=== PATIENT | female | born 1950 | race Caucasian/White ===

== ENCOUNTER 2017-04-02 19:58 | Emergency (ER) | payer OTHER ==
[~2017-04-02] VITALS: Ht 167.6 cm; Wt 52.0 kg
[~2017-04-02 19:58] MED LIST: ALBU.5I NEB; ENOX40P SQ; Free Water PEG; HYDR1SYP PEG; IPRASOL INH; KLYTECL PEG; LACT PO; LEVS0.123 PO; Lactulose Liq PO; OXYGENTANK NAS.CANULA; PERC5TAB12 PO; PREV30TA3 NG; SENN1TAB27 PEG; VORI200T6 PO; WALKER WHEELS/F1 MIS; XANA2TAB2 PO
[2017-04-02 20:00] VITALS: BP 122/85; PULSE 107; RESP 20; TEMP 98.5; O2SAT 97
[2017-04-02 22:04] LABS: BASOPHIL # 0.1 TH/MM3 (0-0.2); BASOPHIL % 0.9 % (0.0-2.0); EOSINOPHIL # 0.4 TH/MM3 (0-0.4); EOSINOPHIL % 5.4 % (0.0-4.0); HEMATOCRIT 27.1 % (35.0-46.0); HEMOGLOBIN 9.5 GM/DL (11.6-15.3); LYMPH % 9.3 % (9.0-44.0); LYMPHOCYTE # 0.6 TH/MM3 (1.0-4.8); MEAN CELL VOLUME 90.2 FL (80.0-100.0); MEAN CORPUSCULAR HEMOGLOBIN 31.7 PG (27.0-34.0); MEAN CORPUSCULAR HGB CONC 35.1 % (32.0-36.0); MONO % 9.1 % (0.0-8.0); MONOCYTE # 0.6 TH/MM3 (0-0.9); NEUT % 75.3 % (16.0-70.0); PLATELET COUNT 335 TH/MM3 (150-450); RED BLOOD COUNT 3.01 MIL/MM3 (4.00-5.30); RED CELL DISTRIBUTION WIDTH 13.5 % (11.6-17.2); WHITE BLOOD COUNT 6.6 TH/MM3 (4.0-11.0)
[2017-04-02 22:23] LABS: ALBUMIN 2.6 GM/DL (3.4-5.0); ALT (GPT) 15 U/L (10-53); AST (GOT) 10 U/L (15-37); BLOOD UREA NITROGEN 15 MG/DL (7-18); CALCIUM 8.9 MG/DL (8.5-10.1); CHLORIDE 104 MEQ/L (98-107); CREATININE 0.54 MG/DL (0.50-1.00); GLOMERULAR FILTRATION RATE 113 ML/MIN (>89); GLUCOSE,RANDOM 93 MG/DL (74-106); SODIUM (NA) 139 MEQ/L (136-145)
[2017-04-02 22:26] LABS: ALKALINE PHOSPHATASE 71 U/L (45-117); TOTAL BILIRUBIN ADULT 0.3 MG/DL (0.2-1.0); TOTAL PROTEIN 6.3 GM/DL (6.4-8.2)
[2017-04-03 00:20] VITALS: O2SAT 97
[2017-04-03] MEDS ORDERED: IOHEXOL 350 MG/ML 10 ML VIAL (for RAD DIAG) IVCONTRAST ONE (00:35)
--- NOTE | 2017-04-03 01:04 | RADRPT ---
EXAM DATE/TIME: 04/03/2017 00:15 [facility] COMPARISON: CT SOFT TISSUE NECK W/O CONTRAST, October 16, 2016, 11:16. INDICATIONS : Increased swelling in throat. Patient has a tracheotomy. IV CONTRAST: 66 cc Omnipaque 350 (iohexol) IV RADIATION DOSE: 13.09 CTDIvol (mGy) MEDICAL HISTORY : Chronic obstructive pulmonary disease. laryngeal carcinoma, asthma SURGICAL HISTORY : tracheotomy ENCOUNTER: Initial ACUITY: 3 days PAIN SCALE: 4/10 LOCATION: neck TECHNIQUE: Volumetric scanning of the neck was performed. Using automated exposure control and adjustment of th e mA and/or kV according to patient size, radiation dose was kept as low as reasonably achievable to obtain optimal diagnostic quality images. DICOM format image data is available electronically for r eview and comparison. FINDINGS: NASOPHARYNX: The nasopharyngeal airway has a normal configuration. No mucosal thickening or mass is seen. OROPHARYNX: The intrinsic muscles of the tongue are symmetric. The tonsillar pillars are intact. The prevertebr al soft tissues are not thickened. LARYNX: More prominent soft tissue mass previously centered in the left piriform recess which now obliterates the aryepiglottic folds and vocal cords. Overall, this mass measures approximately 3.1 x 2.1 cm. A c ollection of air and fluid slightly more cephalad likely reflects secretions. No definite drainable f luid collections are noted. SALIVARY GLANDS: The parotid and submandibular glands are intact. LYMPH NODES: No significant lymphadenopathy is demonstrated. THYROID: Redemonstration of bilateral thyroid nodules measuring 1.4 cm in the right lobe and 7 mm and the left lobe. BONES: Unremarkable. 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 CONCLUSION: 1. More prominent laryngeal soft tissue mass previously centered in the left piriform sinus which now essentially obliterates the larynx. There are some secretions noted more cephalad but no definite dr ainable fluid collections. 2. No significant cervical adenopathy. 3. Occlusion of the left internal carotid artery. 4. Bilateral thyroid nodules. 5. Tracheostomy in place. 6. Moderate centrilobular emphysema in the visualized lung apices with biapical scarring. Denzel Bartholomew MD on April 03, 2017 at 0:48 Board Certified Radiologist. This report was verified electronically.
[2017-04-03 01:06] VITALS: BP 168/93; PULSE 82; TEMP 98.6; O2SAT 98
--- NOTE | 2017-04-03 01:41 | PD ---
HPI . ENT complaint Chief Complaint: ENT Complaint Time Seen by Provider: 20:28 Travel History International Travel<30 days: No Contact w/Intl Traveler<30days: No Traveled to known affect area: No History of Present Illness HPI 66-year-old female with laryngeal cancer status post chemotherapy treatments last in January as per family and patient, status post multiple radiation treatments (total #23 as per family and patient, last end of February), having tracheostomy present, complains of increased soft tissue swelling in the anterior portion of her neck over the past day and a half since getting a diagnostic fiberoptic laryngoscopy via nasal approach. Patient states there is some element of discomfort during the exam, patient was worried if there is any damage or infection incurred by the procedure. Patient has no difficulty breathing, has a patent tracheotomy, and is able to phonate when covering the tracheotomy. Denies fever chills sweats denies any stridor. Patient denies chest pain or any change in cough or production. 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) Chemotherapy: Yes (hx of chemo x 1 month) COPD: Yes Diminished Hearing: No Hypertension: Yes Respiratory: Yes ?: Not Menopausal: Yes : 5 Para: 4 : 1 Past Surgical History Abdominal Surgery: Yes (PEG) Hysterectomy: No Tonsillectomy: Yes Other Surgery: Yes (Tracheotomy) Social History Alcohol Use: No Tobacco Use: No Substance Use: No Allergies-Medications (Allergen,Severity, Reaction): Coded Allergies: penicillin G (Unverified Allergy, Severe, HIVES, 03/23/17) cephalexin (Unverified Allergy, Intermediate, Rash, 03/23/17) Reported Meds & Prescriptions Reported Meds & Active Scripts Active Hydroxyzine HCl 10 Mg/5 Ml Solution 10 Mg PEG Q6H PRN FOR ITCHING OR ANXIETY Lovenox Inj (Enoxaparin Sodium) 40 Mg/0.4 Ml Syr 40 Mg SQ Q24H Senna Lax (Sennosides) 8.6 Mg Tab 17.2 Mg PEG Q12H PRN Prevacid Solutab ODT (Lansoprazole) 30 Mg Tab 30 Mg NG DAILY [Lactulose Liq] 30 ML Syrp 30 Ml PO DAILY PRN [Free Water] 1 ML Flush 150 Ml PEG Q6H Xanax (Alprazolam) 2 Mg Tab 2 Mg PO Q8H PRN Percocet (Oxycodone-Acetaminophen) 5-325 mg Tab 1 Tab PO Q6H PRN Voriconazole 200 Mg Tab 200 Mg PO Q12H Walker with Front Wheels (Device) 1 Mis Mis 1 Ea .ROUTE DIRECTED Oxygen tank (Oxygen) 1 Ea Tank 2 Liter CAROL.CANULA CONTINUOUS Oxygen Concentrator Portable Gaseous 2 L/min via Nasal Cannula Continuous For 99 months Effervescent Potassium Chloride 25 Meq (Potassium Bicarb/Potassium Chloride) 25 Meq Tab 25 Meq PEG DAILY Acidophilus/l-Sporogenes (Lactobacillus Acidophilus) 1 Tab Tab 1 Tab PO Q12HR Levsin (Hyoscyamine Sulfate) 0.125 Mg Tab 0.25 Mg PO Q4H PRN Duoneb (Ipratropium-Albuterol Neb) 0.5-2.5 Mg/3 Ml Neb 1 Nebule INH Q6HR NEB Reported Albuterol Neb (Albuterol Sulfate) 2.5 Mg/0.5 Ml Neb 2.5 Mg NEB Q6HR NEB PRN Note: The Albuterol Sulfate Inhalation Solution is concentrated and must be diluted. Read complete instructions carefully before using. Narrative Medication Allergies and medications reviewed Review of Systems Except as stated in HPI: all other systems reviewed are Neg General / Constitutional: No: Fever Eyes: No: Visual changes HENT: No: Headaches Cardiovascular: No: Chest Pain or Discomfort Respiratory: No: Shortness of Breath Gastrointestinal: No: Abdominal Pain Genitourinary: No: Dysuria Musculoskeletal: No: Pain Skin: No Rash Neurologic: No: Weakness Psychiatric: No: Depression Endocrine: No: Polydipsia Hematologic/Lymphatic: No: Easy Bruising Physical Exam Narrative GENERAL: Awake and alert oriented 3 no acute distress vital signs afebrile normal and stable SKIN: Warm and dry. Color is normal no diaphoresis cyanosis or pallor HEAD: Atraumatic. Normocephalic. EYES: Pupils equal and round. No scleral icterus. No injection or drainage. ENT: No nasal bleeding or discharge. Mucous membranes pink and moist. NECK: Trachea midline. No JVD. Supple nontender full range of motion. Tracheostomy in place, stoma is patent. Patient easily removes and replaces tracheotomy for cleaning multiple times during presentation. Anterior soft tissue of neck that is in the superior aspect above the patient's Velcro collar for her tracheotomy without significant erythema. CARDIOVASCULAR: Regular rate and rhythm. S1-S2 no murmurs rubs gallops RESPIRATORY: No accessory muscle use. Clear to auscultation. Breath sounds equal bilaterally. GASTROINTESTINAL: Abdomen soft, non-tender, nondistended. Hepatic and splenic margins not palpable. MUSCULOSKELETAL: Extremities without clubbing, cyanosis, or edema. No obvious deformities. NEUROLOGICAL: Awake and alert. No obvious cranial nerve deficits. Motor grossly within normal limits. Five out of 5 muscle strength in the arms and legs. Normal speech. PSYCHIATRIC: Appropriate mood and affect; insight and judgment normal. Data Data Last Documented VS Vital Signs Date Time Temp Pulse Resp B/P (MAP) Pulse Ox O2 Delivery O2 Flow Rate FiO2 04/03/17 01:06 98.6 82 168/93 (118) 98 Room Air 04/03/17 00:20 21 04/02/17 20:00 20 Orders Orders Iv Access Insert/Monitor (04/02/17 20:42) Complete Blood Count With Diff (04/02/17 20:42) Comprehensive Metabolic Panel (04/02/17 20:42) Ct Soft Tiss Neck W Iv Cont (04/02/17 ) Iohexol 350 Inj (Omnipaque 350 Inj) (04/03/17 00:35) Labs Laboratory Tests Test 04/02/17 21:40 White Blood Count 6.6 TH/MM3 Red Blood Count 3.01 MIL/MM3 Hemoglobin 9.5 GM/DL Hematocrit 27.1 % Mean Corpuscular Volume 90.2 FL Mean Corpuscular Hemoglobin 31.7 PG Mean Corpuscular Hemoglobin Concent 35.1 % Red Cell Distribution Width 13.5 % Platelet Count 335 TH/MM3 Mean Platelet Volume 8.0 FL Neutrophils (%) (Auto) 75.3 % Lymphocytes (%) (Auto) 9.3 % Monocytes (%) (Auto) 9.1 % Eosinophils (%) (Auto) 5.4 % Basophils (%) (Auto) 0.9 % Neutrophils # (Auto) 5.0 TH/MM3 Lymphocytes # (Auto) 0.6 TH/MM3 Monocytes # (Auto) 0.6 TH/MM3 Eosinophils # (Auto) 0.4 TH/MM3 Basophils # (Auto) 0.1 TH/MM3 CBC Comment DIFF FINAL Differential Comment Blood Urea Nitrogen 15 MG/DL Creatinine 0.54 MG/DL Random Glucose 93 MG/DL Total Protein 6.3 GM/DL Albumin 2.6 GM/DL Calcium Level 8.9 MG/DL Alkaline Phosphatase 71 U/L Aspartate Amino Transf (AST/SGOT) 10 U/L Alanine Aminotransferase (ALT/SGPT) 15 U/L Total Bilirubin 0.3 MG/DL Sodium Level 139 MEQ/L Potassium Level 3.9 MEQ/L Chloride Level 104 MEQ/L Carbon Dioxide Level 30.0 MEQ/L Anion Gap 5 MEQ/L Estimat Glomerular Filtration Rate 113 ML/MIN [facility] Medical Decision Making Medical Screen Exam Complete: Yes Emergency Medical Condition: Yes Medical Record Reviewed: Yes Differential Diagnosis Soft tissue swelling, cellulitis, inflammation, post radiation inflammation, soft tissue mass, soft tissue abscess Narrative Course Laboratory examinations reviewed, no significant abnormalities CT soft tissue neck reveals increased size and soft tissue mass obliterating vocal cords which is interval worsening from prior. Patient is phonating, swallowing, having no difficulty breathing currently. Patient is to follow-up with her oncologist, call tomorrow, for appointment Tuesday or Tuesday for reevaluation. Patient has early been prescribed antibiotics and is currently taking doxycycline twice daily. Diagnosis Primary Impression: Laryngeal cancer Patient Instructions: General Instructions, Soft Tissue Mass (ED) Additional Instructions: Continue current medications. Follow-up with your oncologist, call tomorrow for appointment Tuesday or Tuesday. Return probably for worsening Disposition: 01 DISCHARGE HOME Condition: Stable Kaz Gaona MD Apr 03, 2017 01:41
== END 2017-04-03 01:50 | disposition home or self-care (01) ==
LOC: NEPC 19:58
DX: C32.9 Malignant neoplasm of larynx, unspecified (principal); J44.9 Chronic obstructive pulmonary disease, unspecified; F41.9 Anxiety disorder, unspecified; I10 Essential (primary) hypertension; Z93.0 Tracheostomy status
CPT/HCPCS: 70491; 80053; 85025; 99284; Q9967

== ENCOUNTER 2017-04-11 17:02 | Observation (INO) | payer OTHER ==
[2017-04-11 17:19] VITALS: BP 129/77; PULSE 98; RESP 18; TEMP 98.8; O2SAT 100
[2017-04-11] MEDS ORDERED: SODIUM CHLORID 0.9% 500 ML INJ 500 ML IV ONE (17:30)
[2017-04-11 18:36] VITALS: BP 144/69
[2017-04-11 18:37] VITALS: BP_SYST 138; BP_SYST 140; BP_DIAS 70; BP_DIAS 72
[2017-04-11] MEDS ORDERED: TRAZ50TA12 PO (18:47)
[2017-04-11] MEDS ORDERED: MONT10TA2 PO (18:47)
[2017-04-11] MEDS ORDERED: TRAM50TA PO (18:47)
[2017-04-11] MEDS ORDERED: ONDA4TAB7 SL (18:47)
[2017-04-11] MEDS ORDERED: DOXY100C PO (18:47)
[2017-04-11 18:48] LABS: BASOPHIL # 0.1 TH/MM3 (0-0.2); EOSINOPHIL # 0.2 TH/MM3 (0-0.4); EOSINOPHIL % 3.7 % (0.0-4.0); HEMOGLOBIN 9.8 GM/DL (11.6-15.3); LYMPH % 10.7 % (9.0-44.0); LYMPHOCYTE # 0.7 TH/MM3 (1.0-4.8); MEAN CELL VOLUME 88.8 FL (80.0-100.0); MEAN CORPUSCULAR HEMOGLOBIN 30.9 PG (27.0-34.0); MEAN CORPUSCULAR HGB CONC 34.9 % (32.0-36.0); MEAN PLATELET VOLUME 8.1 FL (7.0-11.0); MONO % 8.6 % (0.0-8.0); MONOCYTE # 0.6 TH/MM3 (0-0.9); PLATELET COUNT 386 TH/MM3 (150-450); RED BLOOD COUNT 3.15 MIL/MM3 (4.00-5.30); RED CELL DISTRIBUTION WIDTH 13.4 % (11.6-17.2); WHITE BLOOD COUNT 6.6 TH/MM3 (4.0-11.0)
--- NOTE | 2017-04-11 18:54 | RADRPT ---
EXAM DATE/TIME: 04/11/2017 18:04 [facility] COMPARISON: CHEST SINGLE AP, October 26, 2016, 6:26. INDICATIONS : Short of breath, syncopal episode. MEDICAL HISTORY : Chronic obstructive pulmonary disease. laryngeal carcinoma, asthma. SURGICAL HISTORY : Tracheostomy. ENCOUNTER: Initial ACUITY: 2 days PAIN SCORE: 0/10 LOCATION: Bilateral chest FINDINGS: A single view of the chest demonstrates the lungs to be symmetrically aerated without evidence of mas s, infiltrate or effusion. The cardiomediastinal contours are unremarkable. Osseous structures are intact. Tracheostomy tube. Left port. CONCLUSION: No acute disease. Jasen Keith Jr., MD on April 11, 2017 at 18:48 Board Certified Radiologist. This report was verified electronically.
[2017-04-11 19:05] LABS: INTERNATIONAL NORMALIZED RATIO 1.1 RATIO; PROTHROMBIN TIME - PATIENT 10.7 SEC (9.8-11.6)
[2017-04-11 19:09] LABS: ALBUMIN 2.9 GM/DL (3.4-5.0); AST (GOT) 19 U/L (15-37); BICARBONATE 32.3 MEQ/L (21.0-32.0); BLOOD UREA NITROGEN 17 MG/DL (7-18); CALCIUM 9.2 MG/DL (8.5-10.1); CHLORIDE 100 MEQ/L (98-107); GLOMERULAR FILTRATION RATE 100 ML/MIN (>89); GLUCOSE,RANDOM 77 MG/DL (74-106); MAGNESIUM 2.5 MG/DL (1.5-2.5); SODIUM (NA) 137 MEQ/L (136-145)
[2017-04-11 19:10] LABS: ALT (GPT) 23 U/L (10-53)
[2017-04-11 19:13] LABS: ALKALINE PHOSPHATASE 81 U/L (45-117); TOTAL BILIRUBIN ADULT 0.2 MG/DL (0.2-1.0); TOTAL PROTEIN 7.1 GM/DL (6.4-8.2); TROPONIN I LESS THAN 0.02 NG/ML (0.02-0.05)
--- NOTE | 2017-04-11 19:35 | RADRPT ---
EXAM DATE/TIME: 04/11/2017 19:18 [facility] COMPARISON: CT BRAIN W/O CONTRAST, October 28, 2016, 13:28. INDICATIONS : Dizziness and weakness. RADIATION DOSE: 48.99 CTDIvol (mGy) MEDICAL HISTORY : Carcinoma, pharyngeal. Hypertension. Chronic obstructive pulmonary disease.Asthma SURGICAL HISTORY : None. ENCOUNTER: Initial ACUITY: 1 day PAIN SCALE: 0/10 LOCATION: cranial TECHNIQUE: Multiple contiguous axial images were obtained of the head. Using automated exposure control and adj ustment of the mA and/or kV according to patient size, radiation dose was kept as low as reasonably a chievable to obtain optimal diagnostic quality images. DICOM format image data is available electro nically for review and comparison. FINDINGS: CEREBRUM: The ventricles are normal for age. There is an old focus of decreased attenuation within the sub-cor tical white matter of the left mid parietal lobe consistent with possible old lacunar infarct. No neelima dence of midline shift, mass lesion, hemorrhage or acute infarction. No extra-axial fluid collection s are seen. POSTERIOR FOSSA: The cerebellum and brainstem are intact. The 4th ventricle is midline. The cerebellopontine angle i s unremarkable. EXTRACRANIAL: The visualized portion of the orbits is intact. SKULL: The calvaria is intact. No evidence of skull fracture. CONCLUSION: 1. No acute intracranial abnormality. 2. Old focus of decreased attenuation within the subcortical white matter of the left mid parietal lo be consistent with possible old lacunar infarct. Jair Amador MD on April 11, 2017 at 19:29 Board Certified Radiologist. This report was verified electronically.
[2017-04-11 20:00] VITALS: BP 130/76; PULSE 98; RESP 20; O2SAT 99
--- NOTE | 2017-04-11 20:07 | PD ---
HPI Chief Complaint: General Weakness Time Seen by Provider: 17:15 Travel History International Travel<30 days: No Contact w/Intl Traveler<30days: No Traveled to known affect area: No History of Present Illness HPI 66-year-old female with a history of laryngeal cancer status post stoma placement presents emergency department complaining of dizziness for approximately 1 week. Patient is here with her son who states that her symptoms have been going on for 2 weeks. Son is very concerned about her condition and during the history, he consistently tells a slightly different story than her. She describes her dizziness as lightheadedness that occurs from sitting to a standing position. Patient states that this is persistent until she sits down. Patient denies chest pain or shortness of breath. Denies headache or blurred vision. States she is here today because her oncologist was concerned about a CT that demonstrated complete occlusion of 1 of the carotid arteries. 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) Chemotherapy: Yes (hx of chemo x 1 month) COPD: Yes Diminished Hearing: No Hypertension: Yes Respiratory: Yes Menopausal: Yes : 5 Para: 4 : 1 Past Surgical History Abdominal Surgery: Yes (PEG) Hysterectomy: No Tonsillectomy: Yes Other Surgery: Yes (Tracheotomy) Social History Alcohol Use: No Tobacco Use: No Substance Use: No Allergies-Medications (Allergen,Severity, Reaction): Coded Allergies: penicillin G (Unverified Allergy, Severe, HIVES, 04/11/17) cephalexin (Unverified Allergy, Intermediate, Rash, 04/11/17) Reported Meds & Prescriptions Reported Meds & Active Scripts Active [Free Water] 1 ML Flush 150 Ml PEG Q6H Xanax (Alprazolam) 2 Mg Tab 2 Mg PO Q8H PRN Percocet (Oxycodone-Acetaminophen) 5-325 mg Tab 1 Tab PO Q6H PRN Walker with Front Wheels (Device) 1 Mis Mis 1 Ea .ROUTE DIRECTED Oxygen tank (Oxygen) 1 Ea Tank 2 Liter CAROL.CANULA CONTINUOUS Oxygen Concentrator Portable Gaseous 2 L/min via Nasal Cannula Continuous For 99 months Levsin (Hyoscyamine Sulfate) 0.125 Mg Tab 0.25 Mg PO Q4H PRN Duoneb (Ipratropium-Albuterol Neb) 0.5-2.5 Mg/3 Ml Neb 1 Nebule INH Q6HR NEB Reported Trazodone (Trazodone HCl) 50 Mg Tab 50 Mg PO HS Tramadol (Tramadol HCl) 50 Mg Tab 50 Mg PO Q8H PRN Singulair (Montelukast Sodium) 10 Mg Tab 10 Mg PO HS Ondansetron Odt 4 Mg Tab 4 Mg SL Q8HR PRN Doxycycline Hyclate 100 Mg Cap 100 Mg PO DAILY Albuterol Neb (Albuterol Sulfate) 2.5 Mg/0.5 Ml Neb 2.5 Mg NEB Q6HR NEB PRN Note: The Albuterol Sulfate Inhalation Solution is concentrated and must be diluted. Read complete instructions carefully before using. Review of Systems Except as stated in HPI: all other systems reviewed are Neg Physical Exam Narrative GENERAL: Well-nourished in no apparent distress, resting comfortably in bed SKIN: Focused skin assessment warm/dry. HEAD: Atraumatic. Normocephalic. EYES: Pupils equal and round. No scleral icterus. No injection or drainage. ENT: No nasal bleeding or discharge. Mucous membranes pink and moist. NECK: Trachea midline. No JVD. Stoma in place without erythema or exudate CARDIOVASCULAR: Regular rate and rhythm. No murmur appreciated. RESPIRATORY: No accessory muscle use. Clear to auscultation. Breath sounds equal bilaterally. GASTROINTESTINAL: Abdomen soft, non-tender, nondistended. PEG in place without leakage or erythema MUSCULOSKELETAL: No obvious deformities. No clubbing. No cyanosis. No edema. Bilateral, equal production director strength. 5/5 strength upper and lower extremities. NEUROLOGICAL: Awake and alert. No obvious cranial nerve deficits. Motor grossly within normal limits. Normal speech. PSYCHIATRIC: Appropriate mood and affect; insight and judgment normal. Data Data Last Documented VS Vital Signs Date Time Temp Pulse Resp B/P (MAP) Pulse Ox O2 Delivery O2 Flow Rate FiO2 04/11/17 20:00 98 20 130/76 (94) 99 Room Air 04/11/17 17:19 98.8 Orders Orders Electrocardiogram (04/11/17 17:27) Complete Blood Count With Diff (04/11/17 17:27) Comprehensive Metabolic Panel (04/11/17 17:27) Magnesium (Mg) (04/11/17 17:27) Troponin I (04/11/17 17:27) Act Partial Throm Time (Ptt) (04/11/17 17:27) Prothrombin Time / Inr (Pt) (04/11/17 17:27) Urinalysis - C+S If Indicated (04/11/17 17:27) Chest, Single Ap (04/11/17 17:27) Sodium Chlorid 0.9% 500 Ml Inj (Ns 500 M (04/11/17 17:30) Ct Brain W/O Iv Contrast(Rout) (04/11/17 ) Orthostatic Vital Signs (04/11/17 17:34) Admit Order (Ed Use Only) (04/11/17 20:32) Alprazolam (Xanax) (04/11/17 20:45) Acetamin-Hydrocod 325-5 Mg ([place] 5-325 (04/11/17 20:45) Labs Laboratory Tests Test 04/11/17 18:20 04/11/17 20:30 White Blood Count 6.6 TH/MM3 Red Blood Count 3.15 MIL/MM3 Hemoglobin 9.8 GM/DL Hematocrit 28.0 % Mean Corpuscular Volume 88.8 FL Mean Corpuscular Hemoglobin 30.9 PG Mean Corpuscular Hemoglobin Concent 34.9 % Red Cell Distribution Width 13.4 % Platelet Count 386 TH/MM3 Mean Platelet Volume 8.1 FL Neutrophils (%) (Auto) 76.0 % Lymphocytes (%) (Auto) 10.7 % Monocytes (%) (Auto) 8.6 % Eosinophils (%) (Auto) 3.7 % Basophils (%) (Auto) 1.0 % Neutrophils # (Auto) 5.0 TH/MM3 Lymphocytes # (Auto) 0.7 TH/MM3 Monocytes # (Auto) 0.6 TH/MM3 Eosinophils # (Auto) 0.2 TH/MM3 Basophils # (Auto) 0.1 TH/MM3 CBC Comment DIFF FINAL Differential Comment Prothrombin Time 10.7 SEC Prothromb Time International Ratio 1.1 RATIO Activated Partial Thromboplast Time 28.7 SEC Blood Urea Nitrogen 17 MG/DL Creatinine 0.60 MG/DL Random Glucose 77 MG/DL Total Protein 7.1 GM/DL Albumin 2.9 GM/DL Calcium Level 9.2 MG/DL Magnesium Level 2.5 MG/DL Alkaline Phosphatase 81 U/L Aspartate Amino Transf (AST/SGOT) 19 U/L Alanine Aminotransferase (ALT/SGPT) 23 U/L Total Bilirubin 0.2 MG/DL Sodium Level 137 MEQ/L Potassium Level 4.0 MEQ/L Chloride Level 100 MEQ/L Carbon Dioxide Level 32.3 MEQ/L Anion Gap 5 MEQ/L Estimat Glomerular Filtration Rate 100 ML/MIN Troponin I LESS THAN 0.02 NG/ML Urine Color LIGHT-YELLOW Urine Turbidity CLEAR Urine pH 8.0 Urine Specific [place] 1.006 Urine Protein NEG mg/dL Urine Glucose (UA) NEG mg/dL Urine Ketones NEG mg/dL Urine Occult Blood NEG Urine Nitrite NEG Urine Bilirubin NEG Urine Urobilinogen LESS THAN 2.0 MG/DL Urine Leukocyte Esterase NEG Urine RBC 2 /hpf Urine WBC 1 /hpf Urine Squamous Epithelial Cells <1 /hpf Urine Amorphous Sediment RARE Microscopic Urinalysis Comment CULT NOT INDICATED MDM Medical Decision Making Medical Screen Exam Complete: Yes Emergency Medical Condition: Yes Differential Diagnosis dehydration, vertigo, carotid stenosis Narrative Course 66-year-old female with a history of laryngeal cancer status post stoma presents emergency department complaining of dizziness for approximately 1 week. Patient is here with her son who states that her symptoms have been going on for 2 weeks. Son is very concerned about her condition and during the history, he consistently tells a slightly different story than her. She describes her dizziness as lightheadedness that occurs from sitting to a standing position. Patient states that this is persistent until she sits down. Patient denies chest pain or shortness of breath. Denies headache or blurred vision. States she is here today because her oncologist was concerned about a CT that demonstrated complete occlusion of 1 of the carotid arteries. Vital signs stable. Orthostatics negative. Pt follows Dr. Bragg for oncology, Dr Foley, PCP. Of note, pt mentions an ingrown toenail that we due to be removed tomorrow which is the reason for the doxycycline administration. I walked the patient in the room and she did not display unsteady gait, however , she says she did feel 'off' and lightheaded. We discussed the risks vs benefits of admission for observation. She agreed to stay for possible tests in the morning. She will be admitted for presyncope. Discussed with Dr. Ott and admitted. Diagnosis Primary Impression: Postural dizziness with presyncope Admitting Information Admitting Physician Requests: Observation Condition: Stable Johanne Bentley Apr 11, 2017 20:07
[2017-04-11] MEDS ORDERED: SENNOSIDES 8.6 MG TAB PO PRN (20:45)
[2017-04-11] MEDS ORDERED: LACTULOSE SYRUP 20 GM/30 ML CUP PO PRN (20:45)
[2017-04-11] MEDS ORDERED: RESP: ALBUTEROL CONC 2.5 MG/0.5 ML NEB NEB PRN (20:45)
[2017-04-11] MEDS ORDERED: ALPRAZolam 1 MG TAB PO ONE (20:45)
[2017-04-11] MEDS ORDERED: BISACODYL 10 MG SUPP RECTAL PRN (20:45)
[2017-04-11] MEDS ORDERED: ACETAMINOPHEN/HYDROcodone 325 MG/5 MG TAB PO PRN (20:45)
[2017-04-11] MEDS ORDERED: MAGNESIUM HYDROXIDE SUSP 30 ML CUP PO PRN (20:45)
[2017-04-11] MEDS ORDERED: ACETAMINOPHEN 325 MG TAB PO PRN (20:45)
[2017-04-11] MEDS ORDERED: ACETAMINOPHEN/HYDROcodone 325 MG/5 MG TAB PO ONE (20:45)
--- NOTE | 2017-04-11 20:46 | HHI.HP ---
[facility] Nilson Foley MD Admission Diagnosis presyncope Diagnoses: (1) Near syncope Diagnosis: Principal (2) Laryngeal cancer Diagnosis: Principal (3) Anxiety Diagnosis: Principal Travel History International Travel<30 Days: No Contact w/Intl Traveler <30 Da: No Traveled to Known Affected Are: No History of Present Illness This is a 66-year-old female with a PMH of Anxiety, Laryngeal CA s/p Trach, COPD and PEG Placement who presented to the ER secondary to complaints of dizziness for approx 1wk. States symptoms worse w/ standing. Denies LOC but reports episodes of near syncope. No fever, chills, chest pain, nausea, vomiting or diarrhea. On arrival, BP 144/69, HR 93, O2 sat 98% on RA, Afebrile. CBC unremarkable. Chemistry essentially unremarkable. Troponin negative. INR 1.1. UA negative. CXR w/ no acute findings. CT Head w/ old lacunar infarct, no acute findings. Pt was to be d/c'd home, however upon ambulation had persistent dizziness and gait instability. Review of Systems Except as stated in HPI: all other systems reviewed are Neg ROS: 14 point review of systems otherwise negative. Past Family Social History Past Medical History PMH: Anxiety, Laryngeal CA s/p Trach, COPD and PEG Placement Past Surgical History PAST SURGICAL HISTORY: Tracheostomy, PEG Placement, Tonsillectomy Allergies: Coded Allergies: penicillin G (Unverified Allergy, Severe, HIVES, 04/11/17) cephalexin (Unverified Allergy, Intermediate, Rash, 04/11/17) Family History PAST FAMILY HISTORY: Reviewed. No h/o DM or CAD Social History PAST SOCIAL HISTORY: Negative for alcohol, tobacco or drugs. Physical Exam Vital Signs Vital Signs Date Time Temp Pulse Resp B/P (MAP) Pulse Ox O2 Delivery O2 Flow Rate FiO2 04/11/17 18:37 101 138/72 (94) 04/11/17 18:37 98 140/70 (93) 04/11/17 18:36 93 144/69 (94) 04/11/17 17:19 98.8 98 18 129/77 (94) 100 Room Air Physical Exam PE: GENERAL: Pleasant middle-aged white female in no acute distress. Trach in place. +anxious, jittery. HEENT: PERRLA, EOMI. No scleral icterus or conjunctival pallor. No lid lag or facial droop. CARDIOVASCULAR: Regular rate and rhythm. No obvious murmurs to auscultation. No chest tenderness to palpation. RESPIRATORY: No obvious rhonchi or wheezing. Clear to auscultation. Breath sounds equal bilaterally. GASTROINTESTINAL: Abdomen soft, non-tender, nondistended. BS normal. PEG tube intact, no signs of infection. MUSCULOSKELETAL: Extremities without clubbing, cyanosis, or edema. No obvious deformities. NEUROLOGICAL: Awake, alert and oriented x4. No focal neurologic deficits. Moving both upper and lower extremities spontaneously. Laboratory Laboratory Tests Test 04/11/17 18:20 White Blood Count 6.6 Red Blood Count 3.15 Hemoglobin 9.8 Hematocrit 28.0 Mean Corpuscular Volume 88.8 Mean Corpuscular Hemoglobin 30.9 Mean Corpuscular Hemoglobin Concent 34.9 Red Cell Distribution Width 13.4 Platelet Count 386 Mean Platelet Volume 8.1 Neutrophils (%) (Auto) 76.0 Lymphocytes (%) (Auto) 10.7 Monocytes (%) (Auto) 8.6 Eosinophils (%) (Auto) 3.7 Basophils (%) (Auto) 1.0 Neutrophils # (Auto) 5.0 Lymphocytes # (Auto) 0.7 Monocytes # (Auto) 0.6 Eosinophils # (Auto) 0.2 Basophils # (Auto) 0.1 CBC Comment DIFF FINAL Differential Comment Prothrombin Time 10.7 Prothromb Time International Ratio 1.1 Activated Partial Thromboplast Time 28.7 Blood Urea Nitrogen 17 Creatinine 0.60 Random Glucose 77 Total Protein 7.1 Albumin 2.9 Calcium Level 9.2 Magnesium Level 2.5 Alkaline Phosphatase 81 Aspartate Amino Transf (AST/SGOT) 19 Alanine Aminotransferase (ALT/SGPT) 23 Total Bilirubin 0.2 Sodium Level 137 Potassium Level 4.0 Chloride Level 100 Carbon Dioxide Level 32.3 Anion Gap 5 Estimat Glomerular Filtration Rate 100 Troponin I LESS THAN 0.02 Result Diagram: 04/11/17181904/11/171819 Caprini VTE Risk Assessment Tyronerini VTE Risk Assessment: No/Low Risk (score <= 1) Caprini Risk Assessment Model Point Value = 1 Point Value = 2 Point Value = 3 Point Value = 5 Age 41-60 Minor surgery BMI > 25 kg/m2 Swollen legs Varicose veins or History of unexplained or recurrent spontaneous Oral contraceptives or hormone replacement Sepsis (< 1 month) Serious lung disease, including pneumonia (< 1 month) Abnormal pulmonary function Acute myocardial infarction Congestive heart failure (< 1 month) History of inflammatory bowel disease Medical patient at bed rest Age 61-74 Arthroscopic surgery Major open surgery (> 45 min) Laparoscopic surgery (> 45 min) Malignancy Confined to bed (> 72 hours) Immobilizing plaster cast Central venous access Age >= 75 History of VTE Family history of VTE Factor V Leiden Prothrombin [id number] Lupus anticoagulant Anticardiolipin antibodies Elevated serum homocysteine Heparin-induced thrombocytopenia Other congenital or acquired thrombophilia Stroke (< 1 month) Elective arthroplasty Hip, pelvis, or leg fracture Acute spinal cord injury (< 1 month) Prophylaxis Regimen Total Risk Factor Score Risk Level Prophylaxis Regimen 0-1 Low Early ambulation 2 Moderate Order ONE of the following: *Sequential Compression Device (SCD) *Heparin 5000 units SQ BID 3-4 Higher Order ONE of the following medications: *Heparin 5000 units SQ TID *Enoxaparin/Lovenox 40 mg SQ daily (WT < 150 kg, CrCl > 30 mL/min) *Enoxaparin/Lovenox 30 mg SQ daily (WT < 150 kg, CrCl > 10-29 mL/min) *Enoxaparin/Lovenox 30 mg SQ BID (WT < 150 kg, CrCl > 30 mL/min) AND/OR *Sequential Compression Device (SCD) 5 or more Highest Order ONE of the following medications: *Heparin 5000 units SQ TID (Preferred with Epidurals) *Enoxaparin/Lovenox 40 mg SQ daily (WT < 150 kg, CrCl > 30 mL/min) *Enoxaparin/Lovenox 30 mg SQ daily (WT < 150 kg, CrCl > 10-29 mL/min) *Enoxaparin/Lovenox 30 mg SQ BID (WT < 150 kg, CrCl > 30 mL/min) AND *Sequential Compression Device (SCD) Assessment and Plan Problem List: (1) Near syncope ICD Code: R55 - Syncope and collapse (2) Anxiety ICD Code: F41.9 - Anxiety disorder, unspecified Status: Acute (3) Laryngeal cancer ICD Code: C32.9 - Malignant neoplasm of larynx, unspecified Status: Acute Assessment and Plan A/P: 1. Near Syncope: c/o dizziness/lightheadedness w/ standing and unsteady w/ ambulation. CT Head w/ old lacunar infarct, no acute findings, images reviewed by me. Place on telemetry, orthostatic vitals negative. IVF for hydration. Initial trop negative, check serial cardiac enzymes to r/o acute ischemia. Check Echo to eval for valvular abnormality/cardiomyopathy. CT Neck 04/03/17 w/ occlusion left internal carotid, images reviewed by me, check Carotid US to further characterize. 2. Anxiety: acute episode of anxiety, resume home Xanax. 3. Laryngeal CA: s/p chemo/XRT, following w/ Dr Romero as outpatient. Recent ER presentation for c/o throat swelling, CT Neck w/ more prominent laryngeal soft tissue mass, images reviewed by me. Follow up w/ Oncology as scheduled. 4. DVT Prophylaxis: SCD/Teds. 5. Social work for d/c planning as needed 6. Labs/records/imaging from this and previous presentations reviewed by me, case discussed at length w/ ER physician. Annalisa Ott MD Apr 11, 2017 20:46
[2017-04-11] MEDS: DOCUSATE SODIUM 50 MG/SENNA 8.6 MG TAB PO SCH (21:00)
[2017-04-11] MEDS: SODIUM CHLORIDE 0.9% FLUSH 10 ML FLUSH IV FLUSH SCH (21:00)
[2017-04-11] MEDS ORDERED: HYOSCYAMINE 0.125 MG TAB PO PRN (21:00)
[2017-04-11] MEDS ORDERED: RESP: ALBUTEROL 2.5 MG/IPRATROPIUM 0.5 MG NEB (SCH) NEB ONE (21:00)
[2017-04-11] MEDS: MONTELUKAST SODIUM 10 MG TAB PO SCH (21:00)
[2017-04-11 21:26] LABS: AMORPHOUS SEDIMENT, URINE RARE; BILIRUBIN, URINE NEG (NEG); BLOOD, URINE NEG (NEG); GLUCOSE,URINE NEG (NEG); KETONE, URINE NEG (NEG); NITRITE,URINE NEG (NEG); SQUAMOUS EPITHELIAL CELL URINE <1 /hpf (0-5); URINE COLOR LIGHT-YELLOW (YELLW/STRAW); URINE LEUKOCYTE ESTERASE NEG (NEG)
[2017-04-11 21:30] VITALS: O2SAT 99
[2017-04-11] MEDS: traZODone HCL 50 MG TAB PO SCH (22:31)
[2017-04-11] MEDS: SODIUM CHLOR 0.9% 1000 ML INJ 1,000 ML IV SCH (22:31)
[2017-04-12] VITALS (12 sets, daily range): BP systolic 133–151; BP diastolic 64–86; PULSE 78–110; RESP 18–20; TEMP 97.9–99.8; O2SAT 94–99
[2017-04-12] MEDS: ALPRAZolam 1 MG TAB PO PRN ×3 (02:04→19:50)
[2017-04-12] MEDS: ACETAMINOPHEN/HYDROcodone 325 MG/10 MG TAB PO PRN ×4 (02:04→19:50)
[2017-04-12] MEDS: ONDANSETRON HCL 4 MG/2 ML VIAL IVP PRN ×4 (02:05→19:51)
[2017-04-12] MEDS: SODIUM CHLOR 0.9% 1000 ML INJ 1,000 ML IV SCH ×3 (06:44→23:46)
[2017-04-12] MEDS: SODIUM CHLORIDE 0.9% FLUSH 10 ML FLUSH IV FLUSH SCH ×2 (08:00→21:49)
[2017-04-12] MEDS: DOCUSATE SODIUM 50 MG/SENNA 8.6 MG TAB PO SCH ×2 (08:25→21:00)
[2017-04-12] MEDS: DOXYCYCLINE HYCLATE 100 MG CAP PO SCH (08:25)
--- NOTE | 2017-04-12 09:39 | RADRPT ---
EXAM DATE/TIME: 04/12/2017 07:52 [facility] COMPARISON: CT SOFT TISSUE NECK W CONTRAST, April 03, 2017, 0:15. INDICATIONS : Occlusion. Dizziness. MEDICAL HISTORY : COPD. HTN. Squamous cell larynx. Chemotherapy. SURGICAL HISTORY : PEG. Tracheostomy. ENCOUNTER: Initial ACUITY: 1 day PAIN SCORE: 6/10 LOCATION: Bilateral neck PEAK SYSTOLIC VELOCITIES (cm/sec): ICA/CCA RATIO: Right: 1.2 Left: UTO ICA: Right: 105 Left: occluded CCA: Right: 88 Left: 53 ECA: Right: 264 Left: 117 VERTEBRAL: Right: 65 antegrade Left: 46 antegrade Elevated flow velocities and ICA/CCA ratios have been found to correlate with increased degrees of vessel stenosis, calculated as percentage of diameter relative to a normal segment of distal ICA/CCA FINDINGS: RIGHT CAROTID: No significant stenosis is visualized. The waveforms are within normal limits. LEFT CAROTID: Left internal carotid artery is occluded. There is a soft tissue mass surrounding the proximal cervic al segment which corresponds to a 3.9 x 3.3 cm left cervical mass on CT exam. VERTEBRAL ARTERIES: Antegrade flow is seen in both vertebral arteries. MISCELLANEOUS: None. CONCLUSION: 1. Occluded left internal carotid artery with large soft tissue mass surrounding the proximal cervica l segment corresponding to a 3.9 x 3.3 cm left cervical mass on recent CT exam. Overall findings are consistent with extralaryngeal extension of malignancy/metastatic adenopathy in this patient with his tory of laryngeal CA. 2. No significant flow-limiting stenosis in the right carotid artery. 3. Patent bilateral vertebral arteries with antegrade flow bilaterally. Denzel Bartholomew MD on April 12, 2017 at 9:26 Board Certified Radiologist. This report was verified electronically.
[2017-04-12 12:26] LABS: AUTOMATED NEUTROPHIL # 6.4 TH/MM3 (1.8-7.7); BASOPHIL % 0.6 % (0.0-2.0); EOSINOPHIL # 0.1 TH/MM3 (0-0.4); EOSINOPHIL % 1.7 % (0.0-4.0); HEMATOCRIT 29.2 % (35.0-46.0); LYMPH % 7.4 % (9.0-44.0); LYMPHOCYTE # 0.6 TH/MM3 (1.0-4.8); MEAN CELL VOLUME 89.8 FL (80.0-100.0); MEAN CORPUSCULAR HEMOGLOBIN 30.8 PG (27.0-34.0); MEAN CORPUSCULAR HGB CONC 34.3 % (32.0-36.0); MEAN PLATELET VOLUME 7.6 FL (7.0-11.0); MONO % 6.4 % (0.0-8.0); MONOCYTE # 0.5 TH/MM3 (0-0.9); NEUT % 83.9 % (16.0-70.0); PLATELET COUNT 401 TH/MM3 (150-450); RED BLOOD COUNT 3.25 MIL/MM3 (4.00-5.30); RED CELL DISTRIBUTION WIDTH 13.5 % (11.6-17.2); WHITE BLOOD COUNT 7.6 TH/MM3 (4.0-11.0)
[2017-04-12 12:57] LABS: ALBUMIN 2.7 GM/DL (3.4-5.0); ALKALINE PHOSPHATASE 78 U/L (45-117); ALT (GPT) 20 U/L (10-53); AST (GOT) 15 U/L (15-37); BICARBONATE 28.7 MEQ/L (21.0-32.0); BLOOD UREA NITROGEN 9 MG/DL (7-18); CHLORIDE 104 MEQ/L (98-107); CREATININE 0.59 MG/DL (0.50-1.00); GLOMERULAR FILTRATION RATE 102 ML/MIN (>89); GLUCOSE,RANDOM 193 MG/DL (74-106); SODIUM (NA) 137 MEQ/L (136-145); TOTAL BILIRUBIN ADULT 0.3 MG/DL (0.2-1.0); TOTAL PROTEIN 6.8 GM/DL (6.4-8.2); TROPONIN I LESS THAN 0.02 NG/ML (0.02-0.05)
--- NOTE | 2017-04-12 16:41 | HHI.PR ---
Subjective Remarks Follow-up visit anxiety, laryngeal cancer status post trach, COPD, PEG placement. Patient seen and examined daily in bed. Reports she is very upset that nobody is explaining to her what is going on. Discuss with patient results of carotid ultrasounds and other diagnostic tests. She was on the phone with her daughter discuss with daughter plan and patient condition. Daughter states that she has been doing well when she was living with her and self [place] however mother decided to move away and be in [place] stayed with her brother. States that she is being followed by Dr. rico in that Dr. Rico is no one who sent the patient to the hospital because of the increased swelling on her left neck. Patient states that she has no fevers, no chills, no nausea, vomiting or diarrhea. Reports that she has been having some neck swelling for about 2 weeks and she has seen Dr. rico about it. Reports that she feels short of breath and the swelling feels like it is choking her "a little bit." States that she is able to suction herself at home and does all her feedings. Patient states she has suction machine. She has been on room air with her tracheostomy Shiley open to air. States that the trach T piece that she is on is making her neck hurt. Objective Vitals Vital Signs Date Time Temp Pulse Resp B/P (MAP) Pulse Ox O2 Delivery O2 Flow Rate FiO2 04/12/17 16:00 99.8 110 20 136/82 (100) 98 04/12/17 15:26 104 04/12/17 12:02 104 04/12/17 12:00 97.9 104 20 136/69 (91) 94 04/12/17 08:14 89 04/12/17 08:00 99.7 104 20 133/77 (95) 96 04/12/17 04:54 99 04/12/17 03:10 22 04/12/17 02:51 106 04/12/17 00:02 97.9 78 18 134/64 (87) 94 04/11/17 23:31 T-piece 21 04/11/17 23:01 04/11/17 21:55 20 04/11/17 21:30 99 Trach Collar 21 04/11/17 20:00 98 20 130/76 (94) 99 Room Air 04/11/17 18:37 101 138/72 (94) 04/11/17 18:37 98 140/70 (93) 04/11/17 18:36 93 144/69 (94) 04/11/17 17:19 98.8 98 18 129/77 (94) 100 Room Air I/O 04/11/17 04/11/17 04/11/17 04/12/17 04/12/17 04/12/17 07:00 15:00 23:00 07:00 15:00 23:00 Intake Total 1250 ml Balance 1250 ml Intake IV Total 950 ml Tube Feeding 300 ml # Voids 2 Result Diagram: 04/12/17 1202 04/12/17 1202 Imaging Last Impressions Carotid Artery Ultrasound 04/12/17 0000 Signed Impressions: Service Date/Time: Wednesday, April 12, 2017 07:52 - CONCLUSION: 1. Occluded left internal carotid artery with large soft tissue mass surrounding the proximal cervical segment corresponding to a 3.9 x 3.3 cm left cervical mass on recent CT exam. Overall findings are consistent with extralaryngeal extension of malignancy/metastatic adenopathy in this patient with history of laryngeal CA. 2. No significant flow-limiting stenosis in the right carotid artery. 3. Patent bilateral vertebral arteries with antegrade flow bilaterally. Denzel Bartholomew MD Chest X-Ray 04/11/17 1727 Signed Impressions: Service Date/Time: Tuesday, April 11, 2017 18:04 - CONCLUSION: No acute disease. Jasen Keith Jr., MD Head CT 04/11/17 0000 Signed Impressions: Service Date/Time: Tuesday, April 11, 2017 19:18 - CONCLUSION: 1. No acute intracranial abnormality. 2. Old focus of decreased attenuation within the subcortical white matter of the left mid parietal lobe consistent with possible old lacunar infarct. Jair Amador MD Objective Remarks GENERAL: This is a well-nourished, well-developed patient, anxious. SKIN: Warm and dry. Pale HEENT: Normocephalic. Pupils equal round and reactive. Nose without bleeding. Airway patent. NECK: Tracheostomy in place Shiley open to air off of T piece. Neck swelling noted left more than the right CARDIOVASCULAR: Regular rate and rhythm without murmurs, gallops, or rubs. RESPIRATORY: Diminished bases . No wheezes, rales, or rhonchi. GASTROINTESTINAL: Abdomen soft, non-tender, nondistended. Bowel Sounds normoactive x4. PEG in place MUSCULOSKELETAL: Extremities without clubbing, cyanosis, or edema. NEUROLOGICAL: Awake and alert. Oriented to lace, person. No focal neuro deficit. Moves all extremities. Able to speak softly with finger covering her tracheostomy. A/P Problem List: (1) Near syncope ICD Code: R55 - Syncope and collapse (2) Anxiety ICD Code: F41.9 - Anxiety disorder, unspecified Status: Acute (3) Laryngeal cancer ICD Code: C32.9 - Malignant neoplasm of larynx, unspecified Status: Acute Assessment and Plan Patient is a 66-year-old female with primary medical history anxiety, allergic cancer status post trach, COPD and PEG placement who came in to the hospital for complaints of dizziness for approximately one week. Near-syncope - Complaints of dizziness, lightheadedness 1 week. Patient states it has been on and off and not constant. - CT of the head showed 1. No acute intracranial abnormality. 2. Old focus of decreased attenuation within the subcortical white matter of the left mid parietal lobe consistent with possible old lacunar infarct. - Chest x-ray showed no acute disease - Carotid artery ultrasound shows 1. Occlusion left internal carotid artery with large soft tissue mass surrounding the proximal cervical segment corresponding to a 3.9 x 3.3 cm left cervical mass on recent CT exam. Overall findings are consistent with extralaryngeal extension of malignancy/metastatic adenopathy in this patient with history of laryngeal cancer. 2. No significant flow-limiting stenosis in the right carotid artery. 3. Patent bilateral vertebral arteries with antegrade flow bilaterally. - As per daughter, patient did not have significant swelling on the neck prior. - Consult oncology. Patient is being followed by Dr. rico and outpatient - Troponin serial negative. - Echocardiogram ordered follow-up results. Laryngeal cancer Status post tracheostomy Status post PEG placement - Status post chemotherapy and radiation therapy being followed by Dr. rico in the outpatient. Recent ER presentation with complaints of throat swelling - CT of the neck with more prominent laryngeal soft tissue mass. - Will have Solu-Medrol for now secondary to complaints of shortness of breath, and swelling - Oncology consult as above - Maintained tracheostomy. Trach care and trach collar - PEG in place continue with feedings. Patient is able to do her own feeding Anxiety - Continue with home medications Xanax DVT prophylaxis SCD teds Discharge Planning Not ready for discharge. Emeka Guallpa Apr 12, 2017 4:41 pm
[2017-04-12] MEDS: methylPREDNISolone SOD SUCC 40 MG/1 ML VIAL IV PUSH SCH ×2 (18:31→21:47)
[2017-04-12] MEDS: traZODone HCL 50 MG TAB PO SCH (21:44)
[2017-04-12] MEDS: MONTELUKAST SODIUM 10 MG TAB PO SCH (21:44)
[2017-04-13] VITALS (7 sets, daily range): BP systolic 150–168; BP diastolic 79–86; PULSE 95–113; RESP 18–19; TEMP 97.6–98.8; O2SAT 94–100
--- NOTE | 2017-04-13 00:50 | EKG ---
Date Performed: 04/11/2017 Time Performed: 18:32:15 PTAGE: 66 years EKG: Sinus rhythm NORMAL ECG NO PREVIOUS TRACING DOCTOR: Oswald Alvarez Interpretating Date/Time 04/13/2017 00:50:27
[2017-04-13] MEDS: ACETAMINOPHEN/HYDROcodone 325 MG/10 MG TAB PO PRN ×6 (03:51→20:23)
[2017-04-13] MEDS: ALPRAZolam 1 MG TAB PO PRN ×3 (03:52→22:10)
[2017-04-13] MEDS: methylPREDNISolone SOD SUCC 40 MG/1 ML VIAL IV PUSH SCH (06:49)
[2017-04-13] MEDS: SODIUM CHLORIDE 0.9% FLUSH 10 ML FLUSH IV FLUSH PRN (06:50)
[2017-04-13] MEDS: DOXYCYCLINE HYCLATE 100 MG CAP PO SCH (08:54)
[2017-04-13] MEDS: DOCUSATE SODIUM 50 MG/SENNA 8.6 MG TAB PO SCH ×2 (08:55→20:23)
[2017-04-13] MEDS: SODIUM CHLORIDE 0.9% FLUSH 10 ML FLUSH IV FLUSH SCH ×2 (08:55→20:23)
[2017-04-13] MEDS: SODIUM CHLOR 0.9% 1000 ML INJ 1,000 ML IV SCH (11:58)
--- NOTE | 2017-04-13 13:49 | HHI.PR ---
Subjective Remarks Follow up with syncope/Neck cancer 04/13/17-patient seen and examined, states she is not happy about the care she has received this morning. NO syncopal episode since admission Objective Vitals Vital Signs Date Time Temp Pulse Resp B/P (MAP) Pulse Ox O2 Delivery O2 Flow Rate FiO2 04/13/17 12:43 98.4 100 18 150/85 (106) 100 04/13/17 10:30 95 04/13/17 08:43 98.0 99 19 168/80 (109) 94 04/13/17 04:51 97.6 106 19 156/86 (109) 99 04/13/17 00:11 98.8 107 19 154/79 (104) 100 04/13/17 00:00 98 Trach Collar 28 04/12/17 21:00 101 04/12/17 20:20 98.8 94 18 151/83 (105) 99 04/12/17 18:28 16 04/12/17 17:38 99.6 98 19 138/86 (103) 94 04/12/17 16:00 99.8 110 20 136/82 (100) 98 04/12/17 15:26 104 I/O 04/12/17 04/12/17 04/12/17 04/13/17 04/13/17 04/13/17 07:00 15:00 23:00 07:00 15:00 23:00 Intake Total 100 ml Balance 100 ml Other 100 ml # Voids 3 Result Diagram: 04/12/17 1202 04/12/17 1202 Imaging Last Impressions Carotid Artery Ultrasound 04/12/17 0000 Signed Impressions: Service Date/Time: Wednesday, April 12, 2017 07:52 - CONCLUSION: 1. Occluded left internal carotid artery with large soft tissue mass surrounding the proximal cervical segment corresponding to a 3.9 x 3.3 cm left cervical mass on recent CT exam. Overall findings are consistent with extralaryngeal extension of malignancy/metastatic adenopathy in this patient with history of laryngeal CA. 2. No significant flow-limiting stenosis in the right carotid artery. 3. Patent bilateral vertebral arteries with antegrade flow bilaterally. Denzel Bartholomew MD Chest X-Ray 04/11/17 5007 Signed Impressions: Service Date/Time: Tuesday, April 11, 2017 18:04 - CONCLUSION: No acute disease. Jasen Keith Jr., MD Head CT 04/11/17 0000 Signed Impressions: Service Date/Time: Tuesday, April 11, 2017 19:18 - CONCLUSION: 1. No acute intracranial abnormality. 2. Old focus of decreased attenuation within the subcortical white matter of the left mid parietal lobe consistent with possible old lacunar infarct. Jair Amador MD Objective Remarks GENERAL: NAD with T piece in place SKIN: Warm and dry. HEAD: Normocephalic. EYES: No scleral icterus. No injection or drainage. NECK: Supple, trachea midline. No JVD or lymphadenopathy. CARDIOVASCULAR: Regular rate and rhythm without murmurs, gallops, or rubs. RESPIRATORY: Breath sounds equal bilaterally. No accessory muscle use. GASTROINTESTINAL: Abdomen soft, non-tender, nondistended. MUSCULOSKELETAL: No cyanosis, or edema. BACK: Nontender without obvious deformity. No CVA tenderness. A/P Problem List: (1) Near syncope ICD Code: R55 - Syncope and collapse (2) Anxiety ICD Code: F41.9 - Anxiety disorder, unspecified Status: Acute (3) Laryngeal cancer ICD Code: C32.9 - Malignant neoplasm of larynx, unspecified Status: Acute Assessment and Plan 66 yrs old female with Near-syncope - CT of the head showed 1. No acute intracranial abnormality. - Carotid artery ultrasound shows 1. Occlusion left internal carotid artery with large soft tissue mass surrounding the proximal cervical segment corresponding to a 3.9 x 3.3 cm left cervical mass on recent CT exam. Overall findings are consistent with extralaryngeal extension of malignancy/metastatic adenopathy in this patient with history of laryngeal cancer. - Oncology consultation pending. - Echocardiogram ordered follow-up results. Laryngeal cancer Status post tracheostomy Status post PEG placement - Status post chemotherapy and radiation therapy being followed by Dr. rico in the outpatient. - CT of the neck with more prominent laryngeal soft tissue mass. - Discontinue sudden Medrol and start Decadron IV - Oncology consult as above - Maintained tracheostomy. Trach care and trach collar - PEG in place continue with feedings. Anxiety - Continue with home medications Xanax DVT prophylaxis SCD Al Frank MD Apr 13, 2017 13:49
[2017-04-13] MEDS: DEXAMETHASONE SOD PHOS 4 MG/ML VIAL IV PUSH SCH (16:33)
[2017-04-13] MEDS: traZODone HCL 50 MG TAB PO SCH (20:22)
[2017-04-13] MEDS: MONTELUKAST SODIUM 10 MG TAB PO SCH (20:22)
[2017-04-14] MEDS: SODIUM CHLORIDE 0.9% FLUSH 10 ML FLUSH IV FLUSH PRN ×2 (00:16→05:57)
[2017-04-14] MEDS: DEXAMETHASONE SOD PHOS 4 MG/ML VIAL IV PUSH SCH ×4 (00:16→11:35)
[2017-04-14] MEDS: ACETAMINOPHEN/HYDROcodone 325 MG/10 MG TAB PO PRN ×4 (00:17→13:12)
[2017-04-14 00:46] VITALS: BP 163/77; PULSE 98; RESP 19; TEMP 98.2; O2SAT 98
[2017-04-14 05:07] VITALS: BP 149/73; PULSE 89; RESP 18; TEMP 98.1; O2SAT 95
[2017-04-14] MEDS: ALPRAZolam 1 MG TAB PO PRN ×2 (05:57→14:45)
[2017-04-14 08:00] VITALS: BP 167/77; PULSE 87; RESP 18; TEMP 97.6; O2SAT 98
[2017-04-14 08:15] VITALS: O2SAT 98
[2017-04-14] MEDS: SODIUM CHLORIDE 0.9% FLUSH 10 ML FLUSH IV FLUSH SCH (08:31)
[2017-04-14] MEDS: DOCUSATE SODIUM 50 MG/SENNA 8.6 MG TAB PO SCH (08:32)
[2017-04-14] MEDS: DOXYCYCLINE HYCLATE 100 MG CAP PO SCH (08:32)
[2017-04-14] MEDS: ONDANSETRON HCL 4 MG/2 ML VIAL IVP PRN (08:48)
[2017-04-14 09:22] LABS: BICARBONATE 28.9 MEQ/L (21.0-32.0); CALCIUM 9.7 MG/DL (8.5-10.1); CREATININE 0.52 MG/DL (0.50-1.00)
[2017-04-14 09:30] VITALS: PULSE 87
--- NOTE | 2017-04-14 11:02 | HHI.PR ---
Subjective Remarks Follow up with syncope/Neck cancer 04/13/17-patient seen and examined, states she is not happy about the care she has received this morning. NO syncopal episode since admission 04/14/17-patient seen and examined, stable and no acute event overnight. Afebrile. Patient will follow outpatient radiation oncology Objective Vitals Vital Signs Date Time Temp Pulse Resp B/P (MAP) Pulse Ox O2 Delivery O2 Flow Rate FiO2 04/14/17 09:30 04/14/17 08:15 98 Trach Collar 5.00 28 04/14/17 08:00 97.6 87 18 167/77 (107) 98 04/14/17 05:07 98.1 89 18 149/73 (98) 95 04/14/17 03:45 Trach Collar 5.00 28 04/14/17 00:46 98.2 98 19 163/77 (105) 98 04/13/17 17:46 98.0 113 19 158/82 (107) 96 04/13/17 12:43 98.4 100 18 150/85 (106) 100 I/O 04/13/17 04/13/17 04/13/17 04/14/17 04/14/17 04/14/17 07:00 15:00 23:00 07:00 15:00 23:00 Intake Total 580 ml 120 ml 480 ml Balance 580 ml 120 ml 480 ml Intake Oral 480 ml 120 ml Tube Feeding 240 ml Other 100 ml 240 ml # Voids 3 4 3 # Bowel Movements 1 Result Diagram: 04/12/17 1202 04/14/17 0730 Imaging Last Impressions Carotid Artery Ultrasound 04/12/17 0000 Signed Impressions: Service Date/Time: Wednesday, April 12, 2017 07:52 - CONCLUSION: 1. Occluded left internal carotid artery with large soft tissue mass surrounding the proximal cervical segment corresponding to a 3.9 x 3.3 cm left cervical mass on recent CT exam. Overall findings are consistent with extralaryngeal extension of malignancy/metastatic adenopathy in this patient with history of laryngeal CA. 2. No significant flow-limiting stenosis in the right carotid artery. 3. Patent bilateral vertebral arteries with antegrade flow bilaterally. Denzel Bartholomew MD Chest X-Ray 04/11/17 0617 Signed Impressions: Service Date/Time: Tuesday, April 11, 2017 18:04 - CONCLUSION: No acute disease. Jasen Keith Jr., MD Head CT 04/11/17 0000 Signed Impressions: Service Date/Time: Tuesday, April 11, 2017 19:18 - CONCLUSION: 1. No acute intracranial abnormality. 2. Old focus of decreased attenuation within the subcortical white matter of the left mid parietal lobe consistent with possible old lacunar infarct. Jair Amador MD Objective Remarks GENERAL: NAD with T piece in place SKIN: Warm and dry. HEAD: Normocephalic. EYES: No scleral icterus. No injection or drainage. NECK: Supple, trachea midline. No JVD or lymphadenopathy. CARDIOVASCULAR: Regular rate and rhythm without murmurs, gallops, or rubs. RESPIRATORY: Breath sounds equal bilaterally. No accessory muscle use. GASTROINTESTINAL: Abdomen soft, non-tender, nondistended. MUSCULOSKELETAL: No cyanosis, or edema. BACK: Nontender without obvious deformity. No CVA tenderness. Procedures none A/P Problem List: (1) Near syncope ICD Code: R55 - Syncope and collapse (2) Anxiety ICD Code: F41.9 - Anxiety disorder, unspecified Status: Acute (3) Laryngeal cancer ICD Code: C32.9 - Malignant neoplasm of larynx, unspecified Status: Acute Assessment and Plan 66 yrs old female with [id number] - CT of the head showed 1. No acute intracranial abnormality. - Carotid artery ultrasound shows 1. Occlusion left internal carotid artery with large soft tissue mass surrounding the proximal cervical segment corresponding to a 3.9 x 3.3 cm left cervical mass on recent CT exam. Overall findings are consistent with extralaryngeal extension of malignancy/metastatic adenopathy in this patient with history of laryngeal cancer. - Follow outpatient with Radiation oncology. - Echocardiogram ordered follow-up results. Laryngeal cancer Status post tracheostomy Status post PEG placement - Status post chemotherapy and radiation therapy being followed by Dr. rico in the outpatient. - CT of the neck with more prominent laryngeal soft tissue mass. - s/p Solu Medrol and continue with Decadron IV. will switch to PO prednisone on discharge - Follow outpatient with Radiation oncology - Maintained tracheostomy. Trach care and trach collar - PEG in place continue with feedings. Anxiety - Continue with home medications Xanax DVT prophylaxis SCD Al Frank MD Apr 14, 2017 11:02
--- NOTE | 2017-04-14 11:04 | HHI.DS ---
Discharge Summary Admission Date Apr 11, 2017 at 20:34 Discharge Date: Apr 14, 2017 Admitting Diagnosis presyncope (1) Near syncope ICD Code: R55 - Syncope and collapse (2) Anxiety ICD Code: F41.9 - Anxiety disorder, unspecified Status: Acute (3) Laryngeal cancer ICD Code: C32.9 - Malignant neoplasm of larynx, unspecified Status: Acute Procedures none Brief History - From Admission This is a 66-year-old female with a PMH of Anxiety, Laryngeal CA s/p Trach, COPD and PEG Placement who presented to the ER secondary to complaints of dizziness for approx 1wk. States symptoms worse w/ standing. Denies LOC but reports episodes of near syncope. No fever, chills, chest pain, nausea, vomiting or diarrhea. On arrival, BP 144/69, HR 93, O2 sat 98% on RA, Afebrile. CBC unremarkable. Chemistry essentially unremarkable. Troponin negative. INR 1.1. UA negative. CXR w/ no acute findings. CT Head w/ old lacunar infarct, no acute findings. Pt was to be d/c'd home, however upon ambulation had persistent dizziness and gait instability. CBC/BMP: 04/12/17 1202 04/14/17 0730 Significant Findings Laboratory Tests Test 04/11/17 18:20 04/11/17 20:30 04/12/17 12:02 04/12/17 19:19 Red Blood Count 3.15 MIL/MM3 (4.00-5.30) 3.25 MIL/MM3 (4.00-5.30) Hemoglobin 9.8 GM/DL (11.6-15.3) 10.0 GM/DL (11.6-15.3) Hematocrit 28.0 % (35.0-46.0) 29.2 % (35.0-46.0) Neutrophils (%) (Auto) 76.0 % (16.0-70.0) 83.9 % (16.0-70.0) Monocytes (%) (Auto) 8.6 % (0.0-8.0) Lymphocytes # (Auto) 0.7 TH/MM3 (1.0-4.8) 0.6 TH/MM3 (1.0-4.8) Albumin 2.9 GM/DL (3.4-5.0) 2.7 GM/DL (3.4-5.0) Carbon Dioxide Level 32.3 MEQ/L (21.0-32.0) Troponin I LESS THAN 0.02 NG/ML LESS THAN 0.02 NG/ML LESS THAN 0.02 NG/ML Lymphocytes (%) (Auto) 7.4 % (9.0-44.0) Random Glucose 193 MG/DL (74-106) Anion Gap 4 MEQ/L (5-15) Test 04/14/17 07:30 Imaging Last Impressions Carotid Artery Ultrasound 04/12/17 0000 Signed Impressions: Service Date/Time: Wednesday, April 12, 2017 07:52 - CONCLUSION: 1. Occluded left internal carotid artery with large soft tissue mass surrounding the proximal cervical segment corresponding to a 3.9 x 3.3 cm left cervical mass on recent CT exam. Overall findings are consistent with extralaryngeal extension of malignancy/metastatic adenopathy in this patient with history of laryngeal CA. 2. No significant flow-limiting stenosis in the right carotid artery. 3. Patent bilateral vertebral arteries with antegrade flow bilaterally. Denzel Bartholomew MD Chest X-Ray 04/11/17 1727 Signed Impressions: Service Date/Time: Tuesday, April 11, 2017 18:04 - CONCLUSION: No acute disease. Jasen Keith Jr., MD Head CT 04/11/17 0000 Signed Impressions: Service Date/Time: Tuesday, April 11, 2017 19:18 - CONCLUSION: 1. No acute intracranial abnormality. 2. Old focus of decreased attenuation within the subcortical white matter of the left mid parietal lobe consistent with possible old lacunar infarct. Jair Amador MD PE at Discharge GENERAL: NAD with T piece in place SKIN: Warm and dry. HEAD: Normocephalic. EYES: No scleral icterus. No injection or drainage. NECK: Supple, trachea midline. No JVD or lymphadenopathy. CARDIOVASCULAR: Regular rate and rhythm without murmurs, gallops, or rubs. RESPIRATORY: Breath sounds equal bilaterally. No accessory muscle use. GASTROINTESTINAL: Abdomen soft, non-tender, nondistended. MUSCULOSKELETAL: No cyanosis, or edema. BACK: Nontender without obvious deformity. No CVA tenderness. Hospital Course while in the hospital, patient was treated with: Near-syncope - CT of the head showed 1. No acute intracranial abnormality. - Carotid artery ultrasound shows 1. Occlusion left internal carotid artery with large soft tissue mass surrounding the proximal cervical segment corresponding to a 3.9 x 3.3 cm left cervical mass on recent CT exam. Overall findings are consistent with extralaryngeal extension of malignancy/metastatic adenopathy in this patient with history of laryngeal cancer. - Follow outpatient with Radiation oncology. - Echocardiogram ordered follow-up results. Laryngeal cancer Status post tracheostomy Status post PEG placement - Status post chemotherapy and radiation therapy being followed by Dr. rico in the outpatient. - CT of the neck with more prominent laryngeal soft tissue mass. - s/p Solu Medrol and continue with Decadron IV. will switch to PO prednisone on discharge - Follow outpatient with Radiation oncology - Maintained tracheostomy. Trach care and trach collar - PEG in place continue with feedings. Anxiety - Treated with home medications Xanax DVT prophylaxis SCD teds Pt Condition on Discharge: Good Discharge Disposition: Discharge Home Discharge Time: <= 30 minutes Discharge Instructions DIET: Follow Instructions for: On Tube Feeding Activities you can perform: Regular-No Restrictions Al Pitts MD Apr 14, 2017 11:04
[2017-04-14 12:00] VITALS: BP 139/65; PULSE 99; RESP 16; TEMP 98.2; O2SAT 97
[2017-04-14] MEDS ORDERED: HYDR-3516 PO (12:35)
[2017-04-14] MEDS ORDERED: XANA2TAB2 PO (12:35)
[2017-04-14] MEDS ORDERED: BUTA1CAP PO (12:35)
--- NOTE | 2017-04-16 08:47 | RF ---
cc: ZEYAD FORDE MD F o l l o w u p R e p o r t DATE OF SERVICE: 04/13/2017 AGE: 66 SEX: F Ms. Desouza is a 66-year-old female who received concomitant chemoradiation therapy for locally advanced head and neck cancer done at an outside institution, finished approximately 8 weeks ago. Will obtain outside imaging and prior records. She recently presented to our clinic with near-syncope and narrowing of the left carotid artery with a mass surrounding the proximal segment of the carotid artery. We discussed no role for radiation therapy at this time. We discussed outpatient PET/CT to assess disease response. There was a question of a role for anticoagulation in her circumstance may or may not be. No role for radiation at this time. PLAN 1. Obtain outside PET/CT to assess disease status in the next couple of weeks. 2. Obtain outside records. I discussed this with Ms. Desouza as well. We discussed with soft tissue mass really no role for resection of that at this time. Zeyad Forde MD Radiation Oncologist NURIA/MURALI /5:18 PM /8:36 AM
== END 2017-04-14 16:32 | disposition home or self-care (01) ==
LOC: NEPC 17:02 → NEDA 20:34 → NEPFCDU 23:06 → N05A 04-12 17:25
PROVIDERS: ADMIT Hospitalist; ATTEND Hospitalist
DX: R55 Syncope and collapse (principal); C32.9 Malignant neoplasm of larynx, unspecified; R42 Dizziness and giddiness; R53.1 Weakness; R59.9 Enlarged lymph nodes, unspecified; I10 Essential (primary) hypertension; J44.9 Chronic obstructive pulmonary disease, unspecified; L60.0 Ingrowing nail; F41.9 Anxiety disorder, unspecified; R26.9 Unspecified abnormalities of gait and mobility; I65.22 Occlusion and stenosis of left carotid artery; Z93.1 Gastrostomy status; Z93.0 Tracheostomy status; Z86.73 Personal history of transient ischemic attack (TIA), and cerebral infarction without residual deficits; Z92.21 Personal history of antineoplastic chemotherapy; Z92.3 Personal history of irradiation
CPT/HCPCS: 70450; 71045; 80048; 80053; 81001; 83735; 84484; 85025; 85610; 85730; 93005; 93880; 94664; 96361; 96374; 96375; 96376; 97162; 99285; A7521; G0378; G8987; G8988; J1100; J1642; J2405; J2920; J7030; J7040

== ENCOUNTER 2017-05-01 00:14 | Inpatient (IN) | payer OTHER, MEDICARE ==
[~2017-05-01] VITALS: Ht 167.6 cm; Wt 45.1 kg
[2017-05-01] VITALS (12 sets, daily range): BP systolic 97–127; BP diastolic 52–64; PULSE 75–137; RESP 16–21; TEMP 96.4–99.5; O2SAT 88–99
[~2017-05-01 00:14] MED LIST changes: +BUTA1CAP PO; +DOXY100C PO; -ENOX40P SQ; +HYDR-3516 PO; -HYDR1SYP PEG; -KLYTECL PEG; -LACT PO; -Lactulose Liq PO; +MONT10TA2 PO; +ONDA4TAB7 SL; -PREV30TA3 NG; -SENN1TAB27 PEG; +TRAM50TA PO; +TRAZ50TA12 PO; -VORI200T6 PO
[2017-05-01] MEDS ORDERED: ACETAMINOPHEN 325 MG TAB PO ONE (00:30)
[2017-05-01 00:57] LABS: AUTOMATED NEUTROPHIL # 9.4 TH/MM3 (1.8-7.7); BASOPHIL % 0.4 % (0.0-2.0); EOSINOPHIL # 0.3 TH/MM3 (0-0.4); EOSINOPHIL % 2.8 % (0.0-4.0); HEMATOCRIT 31.2 % (35.0-46.0); HEMOGLOBIN 10.6 GM/DL (11.6-15.3); LYMPH % 4.2 % (9.0-44.0); LYMPHOCYTE # 0.4 TH/MM3 (1.0-4.8); MEAN CELL VOLUME 89.6 FL (80.0-100.0); MEAN CORPUSCULAR HEMOGLOBIN 30.4 PG (27.0-34.0); MEAN CORPUSCULAR HGB CONC 33.9 % (32.0-36.0); MEAN PLATELET VOLUME 8.3 FL (7.0-11.0); MONO % 5.2 % (0.0-8.0); MONOCYTE # 0.6 TH/MM3 (0-0.9); NEUT % 87.4 % (16.0-70.0); PLATELET COUNT 349 TH/MM3 (150-450); RED BLOOD COUNT 3.48 MIL/MM3 (4.00-5.30); WHITE BLOOD COUNT 10.7 TH/MM3 (4.0-11.0)
--- NOTE | 2017-05-01 01:00 | RADRPT ---
EXAM DATE/TIME: 05/01/2017 00:46 [place] COMPARISON: No previous studies available for comparison. INDICATIONS : Shortness of breath MEDICAL HISTORY : Hypertension. Chronic obstructive pulmonary disease. 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 Hysterectomy. ENCOUNTER: Initial ACUITY: 1 day PAIN SCORE: 8/10 LOCATION: Bilateral chest FINDINGS: A single view of the chest demonstrates a Cjfkia-x-Nmug tip in superior vena cava. Bibasilar airspace disease. Trace pleural fluid. No pneumothorax. CONCLUSION: 1. Subsegmental basilar airspace disease. No effusion or pneumothorax. Tra Sanabria MD on May 01, 2017 at 0:52 Board Certified Radiologist. This report was verified electronically.
[2017-05-01] MEDS ORDERED: LEVOFLOXACIN 750 MG PREMIX INJ 150 ML IV STA (01:05)
[2017-05-01] MEDS ORDERED: AZTREONAM INJ 2,000 MG in SODIUM CHLORIDE 0.9% INJ 100 ML IV STA (01:05)
--- NOTE | 2017-05-01 01:09 | PD ---
HPI . fevers and chills Chief Complaint: Respiratory Symptoms Time Seen by Provider: 00:24 Travel History International Travel<30 days: No Contact w/Intl Traveler<30days: No History of Present Illness HPI This is a patient with laryngeal cancer with a tracheostomy who presents to us with the chief complaint of fevers and chills which started today. She has had brown get him through her tracheostomy today. She is also short of breath and her son's report and oxygen saturation at home of 85%. She does not have any oxygen at home. This patient was recently hospitalized 04/11-04/14 for dizziness. 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) Chemotherapy: Yes (hx of chemo x 1 month) COPD: Yes Diminished Hearing: No Hypertension: Yes Respiratory: Yes Tetanus Vaccination: Unknown Influenza Vaccination: No Menopausal: Yes : 5 Para: 4 : 1 Past Surgical History Abdominal Surgery: Yes (PEG) Hysterectomy: No Tonsillectomy: Yes Other Surgery: Yes (Tracheotomy) Social History Alcohol Use: No Tobacco Use: No Substance Use: No Allergies-Medications (Allergen,Severity, Reaction): Coded Allergies: penicillin G (Unverified Allergy, Severe, HIVES, 05/01/17) cephalexin (Unverified Allergy, Intermediate, Rash, 05/01/17) Reported Meds & Prescriptions Reported Meds & Active Scripts Active Fioricet (Mujmjtmetn-Wbjxmtdtfblvv-Dcdbtwyh) 50-300-40 Mg Cap 1-2 Cap PO Q6H PRN Hydrocodone-Acetamin 5-325 mg (Hydrocodone/Acetaminophen) 5 Mg-325 Mg Tablet 1 Tab PO Q4H PRN Xanax (Alprazolam) 2 Mg Tab 2 Mg PO Q8H PRN [Free Water] 1 ML Flush 150 Ml PEG Q6H Percocet (Oxycodone-Acetaminophen) 5-325 mg Tab 1 Tab PO Q6H PRN Walker with Front Wheels (Device) 1 Mis Mis 1 Ea .ROUTE DIRECTED Oxygen tank (Oxygen) 1 Ea Tank 2 Liter CAROL.CANULA CONTINUOUS Oxygen Concentrator Portable Gaseous 2 L/min via Nasal Cannula Continuous For 99 months Levsin (Hyoscyamine Sulfate) 0.125 Mg Tab 0.25 Mg PO Q4H PRN Duoneb (Ipratropium-Albuterol Neb) 0.5-2.5 Mg/3 Ml Neb 1 Nebule INH Q6HR NEB Reported Trazodone (Trazodone HCl) 50 Mg Tab 50 Mg PO HS Tramadol (Tramadol HCl) 50 Mg Tab 50 Mg PO Q8H PRN Singulair (Montelukast Sodium) 10 Mg Tab 10 Mg PO HS Ondansetron Odt 4 Mg Tab 4 Mg SL Q8HR PRN Doxycycline Hyclate 100 Mg Cap 100 Mg PO DAILY Albuterol Neb (Albuterol Sulfate) 2.5 Mg/0.5 Ml Neb 2.5 Mg NEB Q6HR NEB PRN Note: The Albuterol Sulfate Inhalation Solution is concentrated and must be diluted. Read complete instructions carefully before using. Review of Systems Except as stated in HPI: all other systems reviewed are Neg General / Constitutional: Positive: Fever, Chills Respiratory: Positive: Cough, Other (purulent sputum production) Physical Exam Narrative GENERAL: Thin, chronically ill-appearing woman. SKIN: warm/dry. HEAD: Normocephalic. Atraumatic. EYES: Pupils equal and round. No scleral icterus. No injection or drainage. ENT: No nasal bleeding or discharge. Mucous membranes pink and moist. NECK: Tracheostomy in place. CARDIOVASCULAR: Regular rate and rhythm. Heart sounds normal. RESPIRATORY: No accessory muscle use. Clear to auscultation. Breath sounds equal bilaterally. GASTROINTESTINAL: Abdomen soft. Nontender. Bowel sounds present. Nondistended. MUSCULOSKELETAL: No obvious deformities. NEUROLOGICAL: Awake and alert. No obvious cranial nerve deficits. Motor grossly within normal limits. Normal speech. PSYCHIATRIC: Appropriate mood and affect; insight and judgment normal. Data Data Last Documented VS Vital Signs Date Time Temp Pulse Resp B/P (MAP) Pulse Ox O2 Delivery O2 Flow Rate FiO2 05/01/17 00:27 95 Trach Collar 05/01/17 00:27 18 8.00 05/01/17 00:17 98.3 137 Orders Orders Sepsis Workup Initiated (05/01/17 ) Complete Blood Count With Diff (05/01/17 00:24) Comprehensive Metabolic Panel (05/01/17 00:24) Lactic Acid Sepsis Protocol (05/01/17 00:24) Urinalysis - C+S If Indicated (05/01/17 00:24) Influenzae A/B Antigen (05/01/17 00:24) Blood Culture (05/01/17 00:24) Chest, Single Ap (05/01/17 00:24) Ecg Monitoring (05/01/17 00:24) Iv Access Insert/Monitor (05/01/17 00:24) Oximetry (05/01/17 00:24) Oxygen Administration (05/01/17:24) Acetaminophen (Tylenol) (05/01/17 00:30) Aztreonam Inj (Azactam Inj) (05/01/17 01:05) Levofloxacin 750 Mg Premix Inj (Levaquin (05/01/17 01:05) Labs Laboratory Tests Test 05/01/17 00:30 White Blood Count 10.7 TH/MM3 Red Blood Count 3.48 MIL/MM3 Hemoglobin 10.6 GM/DL Hematocrit 31.2 % Mean Corpuscular Volume 89.6 FL Mean Corpuscular Hemoglobin 30.4 PG Mean Corpuscular Hemoglobin Concent 33.9 % Red Cell Distribution Width 14.0 % Platelet Count 349 TH/MM3 Mean Platelet Volume 8.3 FL Neutrophils (%) (Auto) 87.4 % Lymphocytes (%) (Auto) 4.2 % Monocytes (%) (Auto) 5.2 % Eosinophils (%) (Auto) 2.8 % Basophils (%) (Auto) 0.4 % Neutrophils # (Auto) 9.4 TH/MM3 Lymphocytes # (Auto) 0.4 TH/MM3 Monocytes # (Auto) 0.6 TH/MM3 Eosinophils # (Auto) 0.3 TH/MM3 Basophils # (Auto) 0.0 TH/MM3 CBC Comment DIFF FINAL Differential Comment Lactic Acid Level 1.3 mmol/L [facility] Medical Decision Making Medical Screen Exam Complete: Yes Emergency Medical Condition: Yes Medical Record Reviewed: Yes (history of COPD and laryngeal carcinoma. Status post tracheostomy. Compression of the left internal carotid artery by the laryngeal mass.) Differential Diagnosis Differential diagnosis includes but is not limited to viral respiratory illness , bronchitis, pneumonia, allergies, CHF, asthma/COPD. Narrative Course This is a patient with a history of wearing she'll carcinoma and a tracheostomy who presents with fevers and chills, cough and hypoxia prior to presentation. Onset of symptoms was today. She was immediately placed on oxygen and her oxygen saturations improved to 98% . She reports that she feels much better. CXR>> bibasilar airspace disease CBC & BMP Diagram 05/01/17 00:30 Albumin 2.8 L, Calcium Level 8.8, Aspartate Amino Transf (AST/SGOT) 14 L, Alanine Aminotransferase (ALT/SGPT) 23 LA 1.3 Since this patient was hospitalized recently, I have ordered antibiotics for hospital-acquired pneumonia. Because of her hypoxia, she needs to be admitted to the hospital. Physician Communication Physician Communication Dr. Ott Diagnosis Primary Impression: Hypoxia Additional Impression: Pneumonia Qualified Codes: J18.9 - Pneumonia, unspecified organism Admitting Information Admitting Physician Requests: Admit Condition: Stable Yadira Mccarty MD May 01, 2017 01:08
[2017-05-01 01:12] LABS: ALBUMIN 2.8 GM/DL (3.4-5.0); ALT (GPT) 23 U/L (10-53); AST (GOT) 14 U/L (15-37); BICARBONATE 31.7 MEQ/L (21.0-32.0); BLOOD UREA NITROGEN 15 MG/DL (7-18); CALCIUM 8.8 MG/DL (8.5-10.1); CHLORIDE 98 MEQ/L (98-107); CREATININE 0.65 MG/DL (0.50-1.00); GLOMERULAR FILTRATION RATE 91 ML/MIN (>89); GLUCOSE,RANDOM 107 MG/DL (74-106); SODIUM (NA) 136 MEQ/L (136-145)
[2017-05-01 01:15] LABS: ALKALINE PHOSPHATASE 108 U/L (45-117); TOTAL BILIRUBIN ADULT 0.3 MG/DL (0.2-1.0); TOTAL PROTEIN 6.7 GM/DL (6.4-8.2)
[2017-05-01] MEDS ORDERED: LACTULOSE SYRUP 20 GM/30 ML CUP PO PRN (01:30)
[2017-05-01] MEDS ORDERED: RESP: ALBUTEROL 2.5 MG/IPRATROPIUM 0.5 MG NEB (PRN) NEB (01:30)
[2017-05-01] MEDS ORDERED: SENNOSIDES 8.6 MG TAB PO PRN (01:30)
[2017-05-01] MEDS ORDERED: ACETAMINOPHEN 325 MG TAB PO PRN (01:30)
[2017-05-01] MEDS ORDERED: SODIUM CHLORIDE 0.9% FLUSH 10 ML FLUSH IV FLUSH PRN (01:30)
[2017-05-01] MEDS ORDERED: BISACODYL 10 MG SUPP RECTAL PRN (01:30)
[2017-05-01] MEDS ORDERED: MAGNESIUM HYDROXIDE SUSP 30 ML CUP PO PRN (01:30)
[2017-05-01] MEDS ORDERED: DEXAMETHASONE SOD PHOS 20 MG/5 ML VIAL IV PUSH ONE (01:45)
[2017-05-01] MEDS: SODIUM CHLOR 0.9% 1000 ML INJ 1,000 ML IV SCH ×3 (02:16→19:21)
--- NOTE | 2017-05-01 02:27 | HHI.HP ---
[facility] Nilson Foley MD Admission Diagnosis hypoxia, pneumonia Diagnoses: (1) PNA (pneumonia) Diagnosis: Principal (2) COPD (chronic obstructive pulmonary disease) Diagnosis: Principal (3) Hypoxia Diagnosis: Principal (4) Laryngeal cancer Diagnosis: Principal Travel History International Travel<30 Days: No Contact w/Intl Traveler <30 Da: No History of Present Illness This is a 66-year-old female with a PMH of HTN, Anxiety, COPD, Laryngeal CA s/p Trach, PEG Tube and Tobacco Abuse who presented to the ER w/ c/o SOB, productive sputum and hypoxia. Sons at bedside also report fever at home. Recent admit 04/13-04/14/17 for c/o dizziness, Carotid US w/ occlusion of left internal carotid artery w/ large soft tissue mass consistent w/ extralaryngeal extension of malignancy, seen by Dr. Forde after discharge, plan was to obtain outpatient records. Returns to ER today w/ recurrent SOB. On arrival, noted to have O2 sat 88%, placed on 50% Trach Collar. States she was supposed to be set up w/ Humidifier at home, still awaiting arrangements. CBC essentially unremarkable. Chemistry unremarkable. Lactic Acid normal. CXR with subsegmental atelectasis bilaterally. S/p Levaquin/Azactam in ER. Review of Systems Except as stated in HPI: all other systems reviewed are Neg ROS: 14 point review of systems otherwise negative. Past Family Social History Past Medical History PMH: HTN, Anxiety, COPD, Laryngeal CA s/p Trach, PEG Tube and Tobacco Abuse Past Surgical History PAST SURGICAL HISTORY: Tracheostomy, Tonsillectomy, PEG tube Allergies: Coded Allergies: penicillin G (Unverified Allergy, Severe, HIVES, 05/01/17) cephalexin (Unverified Allergy, Intermediate, Rash, 05/01/17) Family History PAST FAMILY HISTORY: Reviewed. No h/o DM or CAD Social History PAST SOCIAL HISTORY: Negative for alcohol or drugs, history of tobacco. Physical Exam Vital Signs Vital Signs Date Time Temp Pulse Resp B/P (MAP) Pulse Ox O2 Delivery O2 Flow Rate FiO2 2/18/18 01:00 94 Trach Collar 50 05/01/17 00:27 95 Trach Collar 05/01/17 00:27 18 95 Trach Collar 8.00 05/01/17 00:17 98.3 137 20 105/63 (77) 88 Room Air Physical Exam PE: GENERAL: Thin, middle-aged white female in no acute distress, Seen ambulating back from bathroom. Trach in place HEENT: PERRLA, EOMI. No scleral icterus or conjunctival pallor. No lid lag or facial droop. CARDIOVASCULAR: Regular rate and rhythm. No obvious murmurs to auscultation. No chest tenderness to palpation. RESPIRATORY: No obvious rhonchi or wheezing. Clear to auscultation. Breath sounds equal bilaterally. GASTROINTESTINAL: Abdomen soft, non-tender, nondistended. BS normal. MUSCULOSKELETAL: Extremities without clubbing, cyanosis, or edema. No obvious deformities. NEUROLOGICAL: Awake, alert and oriented x4. No focal neurologic deficits. Moving both upper and lower extremities spontaneously. Laboratory Laboratory Tests Test 05/01/17 00:30 White Blood Count 10.7 Red Blood Count 3.48 Hemoglobin 10.6 Hematocrit 31.2 Mean Corpuscular Volume 89.6 Mean Corpuscular Hemoglobin 30.4 Mean Corpuscular Hemoglobin Concent 33.9 Red Cell Distribution Width 14.0 Platelet Count 349 Mean Platelet Volume 8.3 Neutrophils (%) (Auto) 87.4 Lymphocytes (%) (Auto) 4.2 Monocytes (%) (Auto) 5.2 Eosinophils (%) (Auto) 2.8 Basophils (%) (Auto) 0.4 Neutrophils # (Auto) 9.4 Lymphocytes # (Auto) 0.4 Monocytes # (Auto) 0.6 Eosinophils # (Auto) 0.3 Basophils # (Auto) 0.0 CBC Comment DIFF FINAL Differential Comment Blood Urea Nitrogen 15 Creatinine 0.65 Random Glucose 107 Total Protein 6.7 Albumin 2.8 Calcium Level 8.8 Alkaline Phosphatase 108 Aspartate Amino Transf (AST/SGOT) 14 Alanine Aminotransferase (ALT/SGPT) 23 Total Bilirubin 0.3 Sodium Level 136 Potassium Level 3.7 Chloride Level 98 Carbon Dioxide Level 31.7 Anion Gap 6 Estimat Glomerular Filtration Rate 91 Lactic Acid Level 1.3 Date/Time Source Procedure Growth Status 05/01/17 00:30 Blood Peripheral Aerobic Blood Culture Pending Received 05/01/17 00:30 Blood Peripheral Anaerobic Blood Culture Pending Received Result Diagram: 05/01/172905/01/1729 Caprini VTE Risk Assessment Caprini VTE Risk Assessment: No/Low Risk (score <= 1) Caprini Risk Assessment Model Point Value = 1 Point Value = 2 Point Value = 3 Point Value = 5 Age 41-60 Minor surgery BMI > 25 kg/m2 Swollen legs Varicose veins or History of unexplained or recurrent spontaneous Oral contraceptives or hormone replacement Sepsis (< 1 month) Serious lung disease, including pneumonia (< 1 month) Abnormal pulmonary function Acute myocardial infarction Congestive heart failure (< 1 month) History of inflammatory bowel disease Medical patient at bed rest Age 61-74 Arthroscopic surgery Major open surgery (> 45 min) Laparoscopic surgery (> 45 min) Malignancy Confined to bed (> 72 hours) Immobilizing plaster cast Central venous access Age >= 75 History of VTE Family history of VTE Factor V Leiden Prothrombin [id number] Lupus anticoagulant Anticardiolipin antibodies Elevated serum homocysteine Heparin-induced thrombocytopenia Other congenital or acquired thrombophilia Stroke (< 1 month) Elective arthroplasty Hip, pelvis, or leg fracture Acute spinal cord injury (< 1 month) Prophylaxis Regimen Total Risk Factor Score Risk Level Prophylaxis Regimen 0-1 Low Early ambulation 2 Moderate Order ONE of the following: *Sequential Compression Device (SCD) *Heparin 5000 units SQ BID 3-4 Higher Order ONE of the following medications: *Heparin 5000 units SQ TID *Enoxaparin/Lovenox 40 mg SQ daily (WT < 150 kg, CrCl > 30 mL/min) *Enoxaparin/Lovenox 30 mg SQ daily (WT < 150 kg, CrCl > 10-29 mL/min) *Enoxaparin/Lovenox 30 mg SQ BID (WT < 150 kg, CrCl > 30 mL/min) AND/OR *Sequential Compression Device (SCD) 5 or more Highest Order ONE of the following medications: *Heparin 5000 units SQ TID (Preferred with Epidurals) *Enoxaparin/Lovenox 40 mg SQ daily (WT < 150 kg, CrCl > 30 mL/min) *Enoxaparin/Lovenox 30 mg SQ daily (WT < 150 kg, CrCl > 10-29 mL/min) *Enoxaparin/Lovenox 30 mg SQ BID (WT < 150 kg, CrCl > 30 mL/min) AND *Sequential Compression Device (SCD) Assessment and Plan Problem List: (1) PNA (pneumonia) ICD Code: J18.9 - Pneumonia, unspecified organism (2) COPD (chronic obstructive pulmonary disease) ICD Code: J44.9 - Chronic obstructive pulmonary disease, unspecified (3) Hypoxia ICD Code: R09.02 - Hypoxemia Status: Acute (4) Laryngeal cancer ICD Code: C32.9 - Malignant neoplasm of larynx, unspecified Status: Acute Assessment and Plan A/P: 1. PNA: fever/chills, productive cough w/ brown colored sputum, CXR w/ subsegmental bibasilar atelectasis, likely PNA, images reviewed by me. Follow up Blood Cultures, check Sputum Cultures, continue IV Abx. DuoNeb prn as needed. 2. COPD: Chronic Respiratory Failure. DuoNeb prn, resume home MDI, steroid therapy. 3. Hypoxia: O2 sat 88% on RA, likely combination of PNA/COPD/Laryngeal CA w/ extension of malignancy. Monitor O2, obtain ambulating O2 prior to discharge to [facility] for need for home O2. 4. Laryngeal CA: Follows w/ Dr. Forde, outpatient follow up as scheduled. 5. DVT Prophylaxis: SCD/Teds. 6. Social work for d/c planning as needed. 7. Case discussed w/ ER physician at length, labs/records/imaging reviewed by me. Physician Certification 2 Midnight Certification Type: Admission for Inpatient Services Order for Inpatient Services The services are ordered in accordance with Medicare regulations or non- Medicare payer requirements, as applicable. In the case of services not specified as inpatient-only, they are appropriately provided as inpatient services in accordance with the 2-midnight benchmark. Estimated LOS (days): 2 days is the estimated time the patient will need to remain in the hospital, assuming treatment plan goals are met and no additional complications. Post-Hospital Plan: Not yet determined Annalisa Ott MD May 01, 2017 02:27
[2017-05-01 02:59] LABS: BILIRUBIN, URINE NEG (NEG); BLOOD, URINE NEG (NEG); GLUCOSE,URINE NEG (NEG); KETONE, URINE NEG (NEG); NITRITE,URINE NEG (NEG); PH, URINE 6.5 (5.0-8.5); SQUAMOUS EPITHELIAL CELL URINE <1 /hpf (0-5); URINE COLOR YELLOW (YELLW/STRAW); URINE LEUKOCYTE ESTERASE NEG (NEG)
[2017-05-01] MEDS ORDERED: traZODone HCL 50 MG TAB PO ONE (03:00)
[2017-05-01] MEDS: HYOSCYAMINE 0.125 MG TAB PO PRN ×3 (03:12→19:20)
[2017-05-01] MEDS: ALPRAZolam 1 MG TAB PO PRN ×3 (03:12→19:20)
[2017-05-01] MEDS: DEXAMETHASONE SOD PHOS 4 MG/ML VIAL IV PUSH SCH ×3 (05:11→21:10)
[2017-05-01] MEDS: DOCUSATE SODIUM 50 MG/SENNA 8.6 MG TAB PO SCH ×2 (08:27→19:20)
[2017-05-01] MEDS: AZTREONAM INJ 1,000 MG in SODIUM CHLORIDE 0.9% INJ 100 ML IV SCH ×2 (08:27→17:09)
[2017-05-01] MEDS: SODIUM CHLORIDE 0.9% FLUSH 10 ML FLUSH IV FLUSH SCH ×2 (08:27→19:20)
[2017-05-01] MEDS: MORPHINE SULFATE 2 MG/ML INJ IV PUSH PRN ×3 (11:27→21:11)
--- NOTE | 2017-05-01 15:59 | HHI.PR ---
Addendum to Inpatient Note Additional Information The patient was on the phone with her daughter and son. Their questions were answered. The patient was having problems with her feeding tube. The patient' s family was concerned about swelling around the trach site. They said that the patient was following with oncology and pulmonology. Discussed with respiratory therapy. Continue IV steroids and antibiotics. A consult has been placed pulmonology and medical oncology. Continue trach care. Resume tube feeding. Varun Baptiste DO May 01, 2017 15:59
--- NOTE | 2017-05-01 17:10 | MB ---
cc: ADITYA BURGESS M.D. DATE OF CONSULTATION: 05/01/2017. REASON FOR CONSULTATION: Pneumonia. Patient with known COPD, laryngeal cancer post tracheostomy. HISTORY OF PRESENT ILLNESS: Mrs. Magdaleno is a 66-year-old female with known history of laryngeal cancer followed by Dr. Forde. The patient has known history of COPD. She has a tracheostomy in place. She was admitted with weakness, temperature elevation, cough with small amount of whitish sputum. She does have significant congestion with frequent cleaning of her tracheostomy tube. The patient's chest x-ray with atelectatic change or infiltrates of the lung bases. PAST MEDICAL HISTORY: The past medical history is that of: 1. Laryngeal cancer as mentioned above. 2. COPD. 3. Has left internal carotid artery occlusion. 4. Hypertension. 5. Has a tracheostomy and a PEG-tube. FAMILY HISTORY: Noncontributory. REVIEW OF SYSTEMS: A twelve-point review of systems is as per the history of present illness and past history, otherwise negative. PHYSICAL EXAMINATION: GENERAL: On exam, the patient is alert. She appears in no acute distress. VITAL SIGNS: Temperature of 98.3, respirations 18, blood pressure 105/60, oxygen saturation between 88 and 94% on a trache collar. HEAD, EYES, EARS, NOSE, THROAT: Unremarkable. NECK: With a tracheostomy in place. CHEST: Without dullness to percussion, scattered rhonchi on auscultation. ABDOMEN: PEG-tube in place. Bowel sounds audible. EXTREMITIES: No cyanosis, clubbing or edema. LABS: White count 10,000, hemoglobin 10, hematocrit 31, platelet count 349,000. Sodium 136, potassium 3.7, BUN 15, creatinine 0.6. IMPRESSION: 1. Atelectasis and/or pneumonia. 2. COPD. 3. Laryngeal cancer post tracheostomy. PLAN: The patient will be maintained on oxygen therapy as needed pulmonary toilet undertaken. Antibiotic therapy instituted. Chest x-ray will be followed. The patient's prognosis with her multiple medical problems is guarded. I do thank you for asking to partake in Mrs. Magdaleno's care. Aditya Burgess MD WWW/CHANTE /4:40 PM /5:00 PM
[2017-05-01] MEDS: MONTELUKAST SODIUM 10 MG TAB PO SCH (19:19)
[2017-05-01] MEDS: traZODone HCL 50 MG TAB PO SCH (19:20)
[2017-05-01] MEDS: ACETAMINOPHEN/HYDROcodone 325 MG/5 MG TAB PO PRN (20:02)
[2017-05-01] MEDS: LEVOFLOXACIN 750 MG PREMIX INJ 150 ML IV SCH (22:10)
[2017-05-01] MEDS: ACETAMIN 325 MG/BUTALBITAL 50 MG/CAFFEINE 40 MG TAB PO PRN (22:11)
[2017-05-02] VITALS (11 sets, daily range): BP systolic 117–168; BP diastolic 62–83; PULSE 64–92; RESP 16–20; TEMP 97.9–99; O2SAT 94–99
[2017-05-02] MEDS: HYOSCYAMINE 0.125 MG TAB PO PRN ×5 (00:21→20:08)
[2017-05-02] MEDS: AZTREONAM INJ 1,000 MG in SODIUM CHLORIDE 0.9% INJ 100 ML IV SCH ×3 (00:21→18:23)
[2017-05-02] MEDS: ACETAMINOPHEN/HYDROcodone 325 MG/5 MG TAB PO PRN ×5 (00:22→20:08)
[2017-05-02] MEDS: ALPRAZolam 1 MG TAB PO PRN ×2 (03:32→20:08)
[2017-05-02] MEDS: ACETAMIN 325 MG/BUTALBITAL 50 MG/CAFFEINE 40 MG TAB PO PRN ×3 (04:21→18:23)
[2017-05-02] MEDS: DEXAMETHASONE SOD PHOS 4 MG/ML VIAL IV PUSH SCH ×3 (04:22→20:07)
[2017-05-02 04:36] LABS: AUTOMATED NEUTROPHIL # 9.8 TH/MM3 (1.8-7.7); BASOPHIL % 0.1 % (0.0-2.0); HEMATOCRIT 26.1 % (35.0-46.0); LYMPH % 3.5 % (9.0-44.0); LYMPHOCYTE # 0.4 TH/MM3 (1.0-4.8); MEAN CELL VOLUME 89.8 FL (80.0-100.0); MEAN CORPUSCULAR HEMOGLOBIN 30.9 PG (27.0-34.0); MEAN CORPUSCULAR HGB CONC 34.4 % (32.0-36.0); MEAN PLATELET VOLUME 8.1 FL (7.0-11.0); MONO % 2.2 % (0.0-8.0); MONOCYTE # 0.2 TH/MM3 (0-0.9); NEUT % 94.2 % (16.0-70.0); PLATELET COUNT 302 TH/MM3 (150-450); RED CELL DISTRIBUTION WIDTH 13.9 % (11.6-17.2); WHITE BLOOD COUNT 10.4 TH/MM3 (4.0-11.0)
[2017-05-02 05:02] LABS: ALBUMIN 2.3 GM/DL (3.4-5.0); ALT (GPT) 18 U/L (10-53); AST (GOT) 12 U/L (15-37); BLOOD UREA NITROGEN 15 MG/DL (7-18); CALCIUM 8.9 MG/DL (8.5-10.1); CHLORIDE 106 MEQ/L (98-107); CREATININE 0.49 MG/DL (0.50-1.00); GLOMERULAR FILTRATION RATE 127 ML/MIN (>89); GLUCOSE,RANDOM 114 MG/DL (74-106); MAGNESIUM 2.1 MG/DL (1.5-2.5); SODIUM (NA) 140 MEQ/L (136-145)
[2017-05-02 05:05] LABS: ALKALINE PHOSPHATASE 82 U/L (45-117); TOTAL BILIRUBIN ADULT 0.2 MG/DL (0.2-1.0)
[2017-05-02] MEDS: SODIUM CHLORIDE 0.9% FLUSH 10 ML FLUSH IV FLUSH SCH ×2 (08:50→20:12)
[2017-05-02] MEDS: DOCUSATE SODIUM 50 MG/SENNA 8.6 MG TAB PO SCH ×2 (08:50→20:12)
[2017-05-02] MEDS: SODIUM CHLOR 0.9% 1000 ML INJ 1,000 ML IV SCH ×3 (08:51→23:38)
--- NOTE | 2017-05-02 11:59 | HHI.PR ---
Subjective Remarks The patient was on the phone with her family. Their questions were answered. The patient was not happy with her brief encounter with her oncologist this morning. She said that she wants to eat whatever she wants. She requested Benadryl for sleep. She was okay with the CT scan. Discussed with nursing. Objective Vitals Vital Signs Date Time Temp Pulse Resp B/P (MAP) Pulse Ox O2 Delivery O2 Flow Rate FiO2 05/02/17 08:00 98.3 85 18 133/69 (90) 97 05/02/17 07:44 6.00 50 05/02/17 06:16 96 Trach Collar 6.00 50 05/02/17 05:21 18 05/02/17 05:21 18 05/02/17 04:36 98.5 80 20 152/70 (97) 98 05/02/17 04:00 75 05/02/17 00:27 98.9 92 20 127/62 (83) 94 05/02/17 00:03 88 05/01/17 21:16 20 05/01/17 20:00 107 05/01/17 20:00 99.0 102 21 119/57 (77) 97 05/01/17 19:16 97 Trach Collar 6.00 50 05/01/17 19:16 Trach Collar 6.00 50 05/01/17 16:00 97.0 84 16 97/52 (67) 98 05/01/17 12:00 102 05/01/17 12:00 96.8 98 18 127/64 (85) 92 I/O 05/01/17 05/01/17 05/01/17 05/02/17 05/02/17 05/02/17 07:00 15:00 23:00 07:00 15:00 23:00 Intake Total 490 ml 1100 ml 1580 ml 830 ml Balance 490 ml 1100 ml 1580 ml 830 ml Intake Oral 240 ml 480 ml 580 ml IV Total 250 ml 1100 ml 1100 ml 250 ml # Voids 1 3 4 # Bowel Movements 0 Result Diagram: 05/02/17 0415 05/02/17 0415 Imaging Last Impressions Chest X-Ray 05/01/17 0024 Signed Impressions: Service Date/Time: Monday, May 01, 2017 00:46 - CONCLUSION: 1. Subsegmental basilar airspace disease. No effusion or pneumothorax. Tra Sanabria MD Objective Remarks GENERAL: Resting comfortably. HEENT: PERRLA, EOMI. No scleral icterus or conjunctival pallor. No lid lag or facial droop. Trach in place. CARDIOVASCULAR: Regular rate and rhythm. No obvious murmurs to auscultation. No chest tenderness to palpation. RESPIRATORY: No obvious rhonchi or wheezing. Clear to auscultation. Breath sounds equal bilaterally. GASTROINTESTINAL: Abdomen soft, non-tender, nondistended. BS normal. PEG tube in place. MUSCULOSKELETAL: Extremities without clubbing, cyanosis, or edema. No obvious deformities. NEUROLOGICAL: Awake, alert and oriented x4. Difficult speech s/t trach. No focal neurologic deficits. Moving both upper and lower extremities spontaneously. PSYCH: Mood and affect appropriate. Medications and IVs Current Medications Medications (Trade) Dose Ordered Sig/Laure Route Start Time Stop Time Status Last Admin Sodium Chloride 1,000 ml @ 100 mls/hr Q10H IV 05/01/17 01:22 05/02/17 08:51 (NS Flush) 2 ml UNSCH PRN IV FLUSH 05/01/17 01:30 (NS Flush) 2 ml BID IV FLUSH 05/01/17 09:00 (Zofran Inj) 4 mg Q6H PRN IVP 05/01/17 01:30 (Tylenol) 650 mg Q6H PRN PO 05/01/17 01:30 ([place] 5-325 Mg) 1 tab Q4H PRN PO 05/01/17 01:30 05/02/17 08:31 (Morphine Inj) 2 mg Q3H PRN IV PUSH 05/01/17 01:30 05/01/17 21:11 (Dali-Colace) 1 tab BID PO 05/01/17 09:00 (Milk Of Magnesia Liq) 30 ml Q12H PRN PO 05/01/17 01:30 (Senokot) 17.2 mg Q12H PRN PO 05/01/17 01:30 (Dulcolax Supp) 10 mg DAILY PRN RECTAL 05/01/17 01:30 (Lactulose Liq) 30 ml DAILY PRN PO 05/01/17 01:30 Levofloxacin/ Dextrose 150 ml @ 100 mls/hr Q24H IV 05/01/17 23:00 05/01/17 22:10 Aztreonam 1000 mg/ Sodium Chloride 100 ml @ 200 mls/hr Q8H IV 05/01/17 09:00 05/02/17 08:50 (Duoneb Neb) 1 ampule Q4HR NEB PRN NEB 05/01/17 01:30 (Decadron Inj) 4 mg Q8HR IV PUSH 05/01/17 06:00 05/02/17 04:22 (Xanax) 2 mg Q8H PRN PO 05/01/17 03:00 05/02/17 03:32 (Levsin) 0.25 mg Q4H PRN PO 05/01/17 03:00 05/02/17 08:41 (Singulair) 10 mg HS PO 05/01/17 21:00 05/01/17 19:19 (Desyrel) 50 mg HS PO 05/01/17 21:00 05/01/17 19:20 (Fioricet 325-50-40) 1 tab Q6H PRN PO 05/01/17 20:00 05/02/17 10:49 A/P Problem List: (1) PNA (pneumonia) ICD Code: J18.9 - Pneumonia, unspecified organism (2) COPD (chronic obstructive pulmonary disease) ICD Code: J44.9 - Chronic obstructive pulmonary disease, unspecified (3) Hypoxia ICD Code: R09.02 - Hypoxemia Status: Acute (4) Laryngeal cancer ICD Code: C32.9 - Malignant neoplasm of larynx, unspecified Status: Acute Assessment and Plan Acute on chronic respiratory failure O2 sat 88% on RA. The pt has had a productive cough w/ brown colored sputum, CXR w/ subsegmental bibasilar airspace disease. Likely combination of PNA/COPD/ Laryngeal CA w/ extension of malignancy.Pulmonology consult appreciated. - Follow up Blood Cultures, check Sputum Cultures. - continue IV Abx including aztreonam and Levaquin. - DuoNeb prn as needed. - trach care per pulmonology. - continue IV Decadron. - CT of the neck pending. - PT. - IS. Laryngeal cancer S/p radiation. - oncology consult requested. - treatment as above. Malnutrition The pt is on bolus feeding but also has PO intake. - continue bolus tube feeds with clear liquid diet. Anemia S/t cancer. Hgb is stable. - follow CBC as needed. Insomnia The pt requests Benadryl. - Benadryl as needed. DVT Prophylaxis: Lovenox, SCD/Teds Discharge Planning Awaiting further evaluation, oncology consult, CT scan Varun Baptiste DO May 02, 2017 11:58
[2017-05-02] MEDS: ENOXAPARIN SODIUM 30 MG/0.3 ML SYRINGE SQ SCH (12:00)
[2017-05-02] MEDS ORDERED: diphenhydrAMINE HCL 50 MG CAP G-TUBE PRN (12:00)
--- NOTE | 2017-05-02 16:29 | HHI.PR ---
Subjective Remarks aler cough white sputum Objective GENERAL: SKIN: Warm and dry. HEAD: Atraumatic. Normocephalic. EYES: Pupils equal and round. No scleral icterus. No injection or drainage. ENT: No nasal bleeding or discharge. Mucous membranes pink and moist. NECK: Trachea midline. No JVD. CARDIOVASCULAR: Regular rate and rhythm. RESPIRATORY: No accessory muscle use. Clear to auscultation. Breath sounds equal bilaterally. GASTROINTESTINAL: Abdomen soft, non-tender, nondistended. Hepatic and splenic margins not palpable. MUSCULOSKELETAL: Extremities without clubbing, cyanosis, or edema. No obvious deformities. NEUROLOGICAL: Awake and alert. No obvious cranial nerve deficits. Motor grossly within normal limits. Five out of 5 muscle strength in the arms and legs. Normal speech. PSYCHIATRIC: Appropriate mood and affect; insight and judgment normal. Vital Signs Date Time Temp Pulse Resp B/P (MAP) Pulse Ox O2 Delivery O2 Flow Rate FiO2 05/02/17 12:20 96 Trach Collar 50 05/02/17 12:00 97.9 71 16 117/66 (83) 96 05/02/17 08:00 98.3 85 18 133/69 (90) 97 05/02/17 07:44 6.00 50 05/02/17 06:16 96 Trach Collar 6.00 50 05/02/17 05:21 18 05/02/17 05:21 18 05/02/17 04:36 98.5 80 20 152/70 (97) 98 05/02/17 04:00 75 05/02/17 00:27 98.9 92 20 127/62 (83) 94 05/02/17 00:03 88 05/01/17 21:16 20 05/01/17 20:00 107 05/01/17 20:00 99.0 102 21 119/57 (77) 97 05/01/17 19:16 97 Trach Collar 6.00 50 05/01/17 19:16 Trach Collar 6.00 50 I/O 05/01/1718 18 18 05/02/17 05/02/17 07:00 15:00 23:00 07:00 15:00 23:00 Intake Total 490 ml 1100 ml 1580 ml 830 ml Balance 490 ml 1100 ml 1580 ml 830 ml Intake Oral 240 ml 480 ml 580 ml IV Total 250 ml 1100 ml 1100 ml 250 ml # Voids 1 3 4 # Bowel Movements 0 Result Diagram: 05/02/17 0415 05/02/17 0415 Assessment and Plan Assessment and Plan ass laryngeal CA Atelectasis/PNA S/P TRACH PLAN O2 NEEDED ANTIBX BRONCHODILATOR THERAPY Aditya Burgess MD May 02, 2017 16:29
--- NOTE | 2017-05-02 16:44 | MB ---
cc: LUIS ANDERSON M.D. DATE OF CONSULTATION 05/02/2017 CONTINUED . . . 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 She was found to have a large laryngeal mass in the piriform sinus causing mass effect on adjacent structures. Biopsy showed moderately differentiated squamous cell carcinoma. She went to live with her daughter in [place] and received concurrent radiation and chemotherapy which she completed around February 2017. We do not have any of her records. Reportedly the patient did not follow-up since her treatment. When she was admitted to [facility] in March she had a CT of the neck which showed a prominent laryngeal soft tissue mass essentially obliterating the larynx. 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 She was seen by Dr. Forde. At that time Dr. Forde recommended getting an outpatient PET/CT scan and records from [place] for review. The patient is now re-admitted to the hospital with shortness of breath and cough and possible pneumonia. We do not have any records from [place] at this time. The patient was very upset at me because I do not have the records. I told her that this is the first time I have seen her since October of last year and will try to get her records from [place] for review. In the meantime I recommend getting another CT of the neck to see if she has further progression of disease since a month ago. If she indeed has progression of disease in the previously irradiated field her prognosis is very poor and treatment will be palliative chemotherapy. 2. History of a liver lesion. When she was first admitted to the hospital in October a CT showed an indeterminate 1.6 cm lesion in the right lobe of the liver, which could be a hemangioma. At this point I am unclear if she ever had a follow-up of the liver lesion and we may have to repeat a CT of the abdomen for follow-up. 3. Pneumonia versus COPD exacerbation. She presented with fever, shortness of breath and cough. She is currently on antibiotics. 4. Anxiety. She is asking me for more anxiety medication and I told her the primary team will address her anxiety issue. She is upset that I will not give her more anxiety medication. 5. Chronic obstructive pulmonary disease. RECOMMENDATIONS 1. Get a CT of the neck. 2. I will discuss her case with Dr. Forde. 3. I will try to obtain the outside records. 4. Will make further recommendations after I have a chance to review her records and CT scan. Thank you, Dr. Baptiste, for asking me to see this patient. MD DEE Conway/MURALI /2:52 PM /4:30 PM DION
[2017-05-02] MEDS ORDERED: IOHEXOL 350 MG/ML 10 ML VIAL (for RAD DIAG) IVCONTRAST ONE (18:13)
[2017-05-02] MEDS: MONTELUKAST SODIUM 10 MG TAB PO SCH (20:08)
[2017-05-02] MEDS: traZODone HCL 50 MG TAB PO SCH (20:12)
--- NOTE | 2017-05-02 22:18 | RADRPT ---
EXAM DATE/TIME: 05/02/2017 17:54 [facility] COMPARISON: CT SOFT TISSUE NECK W CONTRAST, April 03, 2017, 0:15. INDICATIONS : Cancer of the larynx. IV CONTRAST: 65 cc Omnipaque 350 (iohexol) IV RADIATION DOSE: 11.75 CTDIvol (mGy) MEDICAL HISTORY : Hypertension. Chronic obstructive pulmonary disease. cancer larynx SURGICAL HISTORY : tracheostomy ENCOUNTER: Subsequent ACUITY: 3 weeks PAIN SCALE: 0/10 LOCATION: neck TECHNIQUE: Volumetric scanning of the neck was performed. Using automated exposure control and adjustment of th e mA and/or kV according to patient size, radiation dose was kept as low as reasonably achievable to obtain optimal diagnostic quality images. DICOM format image data is available electronically for r eview and comparison. FINDINGS: A tracheostomy is present. Above this, a large heterogeneous necrotic laryngeal mass is again noted. There has been some additional interval extension of infiltrative disease of the neck on the left in the parapharyngeal space. There is nodular disease and emphysematous change in the visualized lung ap ices. The visualized brain and facial structures are stable and unremarkable. The sinuses and mastoids are clear. The bony elements appear benign. Heterogeneous bilateral thyroid nodules are again noted. CONCLUSION: Some interval progression of disease up into the left parapharyngeal space since previous exam. Marcio Tijerina MD on May 02, 2017 at 22:12 Board Certified Radiologist. This report was verified electronically.
[2017-05-02] MEDS: LEVOFLOXACIN 750 MG PREMIX INJ 150 ML IV SCH (23:38)
[2017-05-03] VITALS (7 sets, daily range): BP systolic 126–161; BP diastolic 67–76; PULSE 60–97; RESP 18–20; TEMP 97.3–99; O2SAT 98–100
[2017-05-03] MEDS: ACETAMINOPHEN/HYDROcodone 325 MG/5 MG TAB PO PRN ×5 (00:33→22:33)
[2017-05-03] MEDS: AZTREONAM INJ 1,000 MG in SODIUM CHLORIDE 0.9% INJ 100 ML IV SCH ×3 (00:33→15:51)
[2017-05-03] MEDS: ALPRAZolam 1 MG TAB PO PRN ×4 (00:33→20:12)
[2017-05-03] MEDS: ACETAMIN 325 MG/BUTALBITAL 50 MG/CAFFEINE 40 MG TAB PO PRN ×4 (00:33→22:17)
[2017-05-03] MEDS: HYOSCYAMINE 0.125 MG TAB PO PRN ×2 (03:50→09:58)
[2017-05-03] MEDS: DEXAMETHASONE SOD PHOS 4 MG/ML VIAL IV PUSH SCH ×3 (05:37→20:17)
[2017-05-03] MEDS: ONDANSETRON HCL 4 MG/2 ML VIAL IVP PRN (05:42)
--- NOTE | 2017-05-03 08:09 | HHI.PR ---
Subjective Remarks in no acute distress. sob has improved. no fever. Objective Vitals Vital Signs Date Time Temp Pulse Resp B/P (MAP) Pulse Ox O2 Delivery O2 Flow Rate FiO2 05/03/17 04:00 97.3 87 20 161/76 (104) 99 05/03/17 01:48 20 05/03/17 01:48 20 05/03/17 00:00 99.0 72 18 156/73 (100) 100 05/02/17 20:00 98 Trach Collar 6.00 50 05/02/17 20:00 98.5 88 18 168/83 (111) 94 05/02/17 19:30 64 05/02/17 19:30 Trach Collar 50 05/02/17 16:00 99.0 71 18 150/76 (100) 99 05/02/17 12:20 96 Trach Collar 50 05/02/17 12:00 97.9 71 16 117/66 (83) 96 05/02/17 08:00 98.3 85 18 133/69 (90) 97 I/O 05/02/17 05/02/17 05/02/17 05/03/17 05/03/17 05/03/17 07:00 15:00 23:00 07:00 15:00 23:00 Intake Total 830 ml 720 ml Balance 830 ml 720 ml Intake Oral 580 ml 720 ml IV Total 250 ml # Voids 4 3 # Bowel Movements 1 Result Diagram: 05/02/17 0415 05/02/17 0415 Objective Remarks GENERAL: This is a well-nourished, well-developed patient, in no apparent distress. CARDIOVASCULAR: Regular rate and regular rhythm without murmurs, gallops, or rubs. RESPIRATORY: Clear to auscultation. Breath sounds equal bilaterally. No wheezes , rales, or rhonchi. GASTROINTESTINAL: Abdomen soft, non-tender, nondistended. Normal, active bowel sounds MUSCULOSKELETAL: Extremities without clubbing, cyanosis, or edema. NEURO: Alert & Oriented x4 to person, place, time, situation. Moves all ext x4 Medications and IVs Inpatient Medications Acetaminophen (Tylenol) 650 mg Q6H PRN PO FEVER/PAIN SCALE 1 TO 2; Start at 01:30 Acetaminophen/ Butalbital/ Caffeine (Fioricet 325-50-40) 1 tab Q6H PRN PO HEADACHE Last administered on 05/03/17 00:33; Start 05/01/17 at 20:00 Acetaminophen/ Hydrocodone Bitart ([place] 5-325 Mg) 1 tab Q4H PRN PO pain >5 Last administered on 05/03/17at 05:39; Start 05/01/17 at 01:30 Albuterol/ Ipratropium (Duoneb Neb) 1 ampule Q4HR NEB PRN NEB SOB/WHEEZING; Start 05/01/17 at 01:30 Alprazolam (Xanax) 2 mg Q8H PRN PO ANXIETY Last administered on 05/03/17 02:30 ; Start 05/01/17 at 03:00 Aztreonam 1000 mg/ Sodium Chloride 100 ml @ 200 mls/hr Q8H IV Last administered on 05/03/17at 00:33; Start 05/01/17 at 09:00 Aztreonam 2000 mg/ Sodium Chloride 100 ml @ 200 mls/hr ONCE STAT IV Last administered on 05/01/17 02:15; Start 05/01/17 at 01:05; Stop 05/01/17 at 01:34 ; Status DC Bisacodyl (Dulcolax Supp) 10 mg DAILY PRN RECTAL SEVERE CONSITIPATION; Start at 01:30 Dexamethasone Sodium Phosphate (Decadron Inj) 4 mg Q8HR IV PUSH Last administered on 05/03/17at 05:37; Start 05/01/17 at 06:00 Diphenhydramine HCl (Benadryl) 50 mg Q8H PRN G-TUBE allergies/ insomnia; Start 05/02/17 at 12:00 Enoxaparin Sodium (Lovenox Inj) 30 mg Q24H SQ Last administered on 05/02/17at 12 :00; Start 05/02/17 at 12:00 Hyoscyamine Sulfate (Levsin) 0.25 mg Q4H PRN PO SECRETIONS Last administered on 05/03/17at 03:50; Start 05/01/17 at 03:00 Lactulose (Lactulose Liq) 30 ml DAILY PRN PO SEVERE CONSITIPATION; Start at 01:30 Levofloxacin/ Dextrose 150 ml @ 100 mls/hr Q24H IV Last administered on at 23:38; Start 05/01/17 at 23:00 Magnesium Hydroxide (Milk Of Magnjanene Liq) 30 ml Q12H PRN PO Mild constipation ; Start 05/01/17 at 01:30 Montelukast Sodium (Singulair) 10 mg HS PO Last administered on 05/02/17at 20:08 ; Start 05/01/17 at 21:00 Morphine Sulfate (Morphine Inj) 2 mg Q3H PRN IV PUSH breakthrough Last administered on 05/01/17at 21:11; Start 05/01/17 at 01:30 Ondansetron HCl (Zofran Inj) 4 mg Q6H PRN IVP NAUSEA OR VOMITING Last administered on 05/03/17at 05:42; Start 05/01/17 at 01:30 Senna/Docusate Sodium (Dali-Colace) 1 tab BID PO ; Start 05/01/17 at 09:00 Sennosides (Senokot) 17.2 mg Q12H PRN PO Moderate constipation; Start 05/01/17 at 01:30 Sodium Chloride (NS Flush) 2 ml BID IV FLUSH ; Start 05/01/17 at 09:00 Trazodone HCl (Desyrel) 50 mg ONCE ONCE PO Last administered on 05/01/17at 03: 12; Start 05/01/17 at 03:00; Stop 05/01/17 at 03:06; Status DC A/P Problem List: (1) PNA (pneumonia) ICD Code: J18.9 - Pneumonia, unspecified organism (2) COPD (chronic obstructive pulmonary disease) ICD Code: J44.9 - Chronic obstructive pulmonary disease, unspecified (3) Hypoxia ICD Code: R09.02 - Hypoxemia Status: Acute (4) Laryngeal cancer ICD Code: C32.9 - Malignant neoplasm of larynx, unspecified Status: Acute Assessment and Plan Acute on chronic respiratory failure The pt has had a productive cough w/ brown colored sputum, CXR w/ subsegmental bibasilar airspace disease. Likely combination of PNA/COPD/Laryngeal CA w/ extension of malignancy.Pulmonology consult appreciated. - Follow up Blood Cultures, check Sputum Cultures. - continue IV Abx including aztreonam and Levaquin. - DuoNeb prn as needed. - trach care per pulmonology. - continue IV Decadron. - PT. - IS. Laryngeal cancer S/p radiation. - oncology consult appreciated. - treatment as above. Malnutrition The pt is on bolus feeding but also has PO intake. - continue bolus tube feeds with clear liquid diet. Anemia S/t cancer. Hgb is stable. - follow CBC as needed. Insomnia The pt requests Benadryl. - Benadryl as needed. DVT Prophylaxis: Lovenox, SCD/Teds Discharge Planning when cleared by pulmonary and oncology. awaiting sputum culture. Jeanne Parkinson MD May 03, 2017 08:09
[2017-05-03] MEDS: SODIUM CHLORIDE 0.9% FLUSH 10 ML FLUSH IV FLUSH SCH ×2 (08:30→20:17)
[2017-05-03] MEDS: DOCUSATE SODIUM 50 MG/SENNA 8.6 MG TAB PO SCH ×2 (08:30→20:13)
--- NOTE | 2017-05-03 09:18 | HHI.PR ---
Subjective Remarks alert cough white sputum Objective Vital Signs Date Time Temp Pulse Resp B/P (MAP) Pulse Ox O2 Delivery O2 Flow Rate FiO2 05/03/17 04:00 97.3 87 20 161/76 (104) 99 05/03/17 01:48 20 05/03/17 01:48 20 05/03/17 00:00 99.0 72 18 156/73 (100) 100 05/02/17 20:00 98 Trach Collar 6.00 50 05/02/17 20:00 98.5 88 18 168/83 (111) 94 05/02/17 19:30 64 05/02/17 19:30 Trach Collar 50 05/02/17 16:00 99.0 71 18 150/76 (100) 99 05/02/17 12:20 96 Trach Collar 50 05/02/17 12:00 97.9 71 16 117/66 (83) 96 I/O 05/02/17 05/02/17 05/02/17 05/03/17 05/03/17 05/03/17 07:00 15:00 23:00 07:00 15:00 23:00 Intake Total 830 ml 720 ml Balance 830 ml 720 ml Intake Oral 580 ml 720 ml IV Total 250 ml # Voids 4 3 # Bowel Movements 1 Result Diagram: 05/02/1741405/02/17414 Objective Remarks GENERAL: SKIN: Warm and dry. HEAD: Atraumatic. Normocephalic. EYES: Pupils equal and round. No scleral icterus. No injection or drainage. ENT: No nasal bleeding or discharge. Mucous membranes pink and moist. NECK: Trachea midline. No JVD. CARDIOVASCULAR: Regular rate and rhythm. RESPIRATORY: No accessory muscle use. Clear to auscultation. Breath sounds equal bilaterally. GASTROINTESTINAL: Abdomen soft, non-tender, nondistended. Hepatic and splenic margins not palpable. MUSCULOSKELETAL: Extremities without clubbing, cyanosis, or edema. No obvious deformities. NEUROLOGICAL: Awake and alert. No obvious cranial nerve deficits. Motor grossly within normal limits. Five out of 5 muscle strength in the arms and legs. Normal speech. PSYCHIATRIC: Appropriate mood and affect; insight and judgment normal. Assessment and Plan Assessment and Plan ass laryngeal CA Atelectasis/PNA S/P TRACH PLAN O2 NEEDED ANTIBX BRONCHODILATOR THERAPY Aditya Burgess MD May 03, 2017 09:18
--- NOTE | 2017-05-03 09:46 | MB ---
cc: LUIS ANDERSON M.D. Corrected Copy: 05/03/17 DATE OF CONSULTATION 05/02/[address] Baptiste. REASON FOR CONSULTATION Oncology consulted to render opinion regarding patient with a head and neck cancer. HISTORY OF PRESENT ILLNESS Ms. Desouza is a 66-year-old female presented to the hospital complaint of increased shortness of breath, cough and subjective fever. I first saw her when she was admitted to the hospital October 2016 with shortness of breath. At that time she was found to have a large laryngeal mass. She has subsequently had a biopsy which showed invasive squamous cell carcinoma. After discharge she went to live with her daughter in [place] and reportedly received concurrent radiation and chemotherapy over there until February of 2017. She stated that she did not follow up with oncologist. Since then she completed the treatment. She was admitted to [facility] again in late March with a near syncopal episode. A CT scan at that time showed prominent laryngeal mass essentially obliterating the larynx. 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 She was evaluated by Dr. Forde and Dr. Forde has requested an outpatient PET CT scan and to obtain record. The patient represented at this time with increased shortness of breath. She has cough and bringing up some whitish sputum. She has generalized weakness. She says she has fever up to 101. She states that since radiation treatment she hears louder on the left side ear. Denies any pain. Denies any chest pressure. Denies any nausea or vomiting, diarrhea or abdominal pain. She complained of anxiety, stating that the primary physician not giving her the right medication for anxiety. She is also upset at that we do not have any of her record from [facility]. She denies any headache. Denies any visual changes. PAST MEDICAL HISTORY 1. Laryngeal squamous cell carcinoma. 2. Chronic obstructive pulmonary disease. 3. Anxiety. 4. Tobacco dependence. 5. Liver mass noted on prior CT scan. PAST SURGICAL HISTORY 1. Tonsillectomy. 2. Biopsy laryngeal mass. 3. PEG tube placement. 4. Port placement. 5. Tracheostomy. FAMILY HISTORY No head and neck cancer. SOCIAL HISTORY Smoked up to three packs per day for 50 years. ALLERGIES KEFLEX AND PENICILLIN. MEDICATIONS Current medications: 1. Lovenox. 2. Levaquin. 3. Singulair. 4. Desyrel. 5. Dali-Colace. 6. Aztreonam. REVIEW OF SYSTEMS CONSTITUTIONAL: Has increased weakness and weight loss. EYES: Negative. EAR, NOSE, AND THROAT: As above. CARDIOVASCULAR: Denies any chest pressure, palpitations. RESPIRATORY: As above. GASTROINTESTINAL: Denies any nausea or vomiting, diarrhea or abdominal pain. GENITOURINARY: Denies any dysuria, hematuria. MUSCULOSKELETAL: Negative. HEMATOLOGIC: Negative. DERMATOLOGIC: Negative. PSYCHIATRIC: Anxious. NEUROLOGICAL: Negative. PHYSICAL EXAMINATION VITAL SIGNS: Temperature 97.9, blood pressure 117/66. O2 saturation 96% on trache collar. GENERAL: She is anxious. She is alert and oriented times three. She is cachectic. HEENT: Atraumatic, normocephalic. Pupils equal, round and reactive to light. Oropharynx dry mucosa. NECK: Tracheostomy noted. LYMPHATICS: No palpable cervical, clavicular, axillary or inguinal lymph nodes. CARDIOVASCULAR: Regular S1, S2. No murmur. LUNGS: Diffuse rhonchi. ABDOMEN: Soft, nontender. PEG tube noted. EXTREMITIES: No clubbing, cyanosis. No edema. Right big toe has a bandage. No bleeding noted. SKIN: Decreased skin turgor. NEUROLOGIC: Nonfocal. LABORATORY DATA WBC 10.4, hemoglobin 9.0, platelet count 302. Creatinine of 0.49. Liver transaminase within normal limits. 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 She was found to have a large laryngeal mass in the piriform sinus causing mass effect on adjacent structures. Biopsy showed moderately differentiated squamous cell carcinoma. She went to live with her daughter in [place] and received concurrent radiation and chemotherapy which she completed around February 2017. We do not have any of her records. Reportedly the patient did not follow-up since her treatment. When she was admitted to [facility] in March she had a CT of the neck which showed a prominent laryngeal soft tissue mass essentially obliterating the larynx. 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 She was seen by Dr. Forde. At that time Dr. Forde recommended getting an outpatient PET/CT scan and records for [place] for review. The patient is now re-admitted to the hospital with shortness of breath and cough and possible pneumonia. We do not have any records from [place] at this time. The patient was very upset at me because I do not have the records. I told her that this is the first time I have seen her since October of last year and will try to get her records from [place] for review. In the meantime I recommend getting another CT of the neck to see if she has further progression of disease since a month ago. If she indeed has progression of disease in the previously irradiated field her prognosis is very poor and treatment will be palliative chemotherapy. 2. History of a liver lesion. When she was first admitted to the hospital in October a CT showed an indeterminate 1.6 cm lesion in the right lobe of the liver, which could be a hemangioma. At this point I am unclear if she ever had a follow-up of the liver lesion and we may have to repeat a CT of the abdomen for follow-up. 3. Pneumonia versus COPD exacerbation. She presented with fever, shortness of breath and cough again. She is currently on antibiotics. 4. Anxiety. She is asking me for more anxiety medication and I told her the primary team will address her anxiety issue. She is upset that I will not give her more anxiety medication. 5. Chronic obstructive pulmonary disease. RECOMMENDATIONS 1. Get a CT of the neck. 2. I will discuss her case with Dr. Forde. 3. I will try to obtain the outside records. 4. Will make further recommendations after I have a chance to review her records and CT scan. Thank you, Dr. Baptiste, for asking me to see this patient. MD DEE Conway/HAYDEE /2:41 PM /9:41 AM DION
[2017-05-03] MEDS: ENOXAPARIN SODIUM 30 MG/0.3 ML SYRINGE SQ SCH (10:57)
[2017-05-03] MEDS: SODIUM CHLOR 0.9% 1000 ML INJ 1,000 ML IV SCH ×2 (10:57→22:10)
--- NOTE | 2017-05-03 11:14 | PD.ONC.PN ---
Subjective Subjective Remarks Afebrile overnight. patient resting in bed. feeling anxious and hungry. wants her xanax and her morning bolus tube feed. Objective Data Date Time Temp Pulse Resp B/P (MAP) Pulse Ox O2 Delivery O2 Flow Rate FiO2 05/03/17 04:00 97.3 87 20 161/76 (104) 99 05/03/17 01:48 20 05/03/17 01:48 20 05/03/17 00:00 99.0 72 18 156/73 (100) 100 05/02/17 20:00 98 Trach Collar 6.00 50 05/02/17 20:00 98.5 88 18 168/83 (111) 94 05/02/17 19:30 64 05/02/17 19:30 Trach Collar 50 05/02/17 16:00 99.0 71 18 150/76 (100) 99 05/02/17 12:20 96 Trach Collar 50 05/02/17 12:00 97.9 71 16 117/66 (83) 96 Result Diagram: 05/02/17 0415 05/02/17 0415 Culture Results Microbiology Date/Time Source Procedure Growth Status 05/01/17 00:30 Blood Peripheral Aerobic Blood Culture - Preliminary NO GROWTH IN 1 DAY Resulted 05/01/17 00:30 Blood Peripheral Anaerobic Blood Culture - Preliminary NO GROWTH IN 1 DAY Resulted 05/01/17 00:20 Blood Peripheral Aerobic Blood Culture - Preliminary NO GROWTH IN 1 DAY Resulted 05/01/17 00:20 Blood Peripheral Anaerobic Blood Culture - Preliminary NO GROWTH IN 1 DAY Resulted 05/01/17 10:38 Sputum Expectorated Sputum Gram Stain - Final Complete 05/01/17 10:38 Sputum Culture - Final Pseudomonas Aeruginosa Complete Administered Medications Medications (Trade) Dose Ordered Sig/Laure Route PRN Reason Start Time Stop Time Status Last Admin Dose Admin Sodium Chloride 1,000 ml @ 100 mls/hr Q10H IV 05/01/17 01:22 05/03/17 10:57 Ondansetron HCl (Zofran Inj) 4 mg Q6H PRN IVP NAUSEA OR VOMITING 05/01/17 01:30 05/03/17 05:42 Acetaminophen/ Hydrocodone Bitart ([place] 5-325 Mg) 1 tab Q4H PRN PO pain >5 05/01/17 01:30 05/03/17 10:46 Morphine Sulfate (Morphine Inj) 2 mg Q3H PRN IV PUSH breakthrough 05/01/17 01:30 05/01/17 21:11 Levofloxacin/ Dextrose 150 ml @ 100 mls/hr Q24H IV 05/01/17 23:00 05/02/17 23:38 Aztreonam 1000 mg/ Sodium Chloride 100 ml @ 200 mls/hr Q8H IV 05/01/17 09:00 05/03/17 00:33 Dexamethasone Sodium Phosphate (Decadron Inj) 4 mg Q8HR IV PUSH 05/01/17 06:00 05/03/17 05:37 Alprazolam (Xanax) 2 mg Q8H PRN PO ANXIETY 05/01/17 03:00 05/03/17 10:21 Hyoscyamine Sulfate (Levsin) 0.25 mg Q4H PRN PO SECRETIONS 05/01/17 03:00 05/03/17 09:58 Montelukast Sodium (Singulair) 10 mg HS PO 05/01/17 21:00 05/02/17 20:08 Trazodone HCl (Desyrel) 50 mg HS PO 05/01/17 21:00 05/02/17 20:12 Acetaminophen/ Butalbital/ Caffeine (Fioricet 325-50-40) 1 tab Q6H PRN PO HEADACHE 05/01/17 20:00 05/03/17 08:30 Enoxaparin Sodium (Lovenox Inj) 30 mg Q24H SQ 05/02/17 12:00 05/03/17 10:57 Objective Remarks GENERAL: Thin, anxious female, sitting up in bed. SKIN: Warm and dry. HEAD: Normocephalic. EYES: No injection or drainage. NECK: Supple, trachea midline. trach in place CARDIOVASCULAR: Regular rate and rhythm RESPIRATORY: Breath sounds equal bilaterally. No accessory muscle use. GASTROINTESTINAL: Abdomen soft, non-tender, nondistended. EXTREMITIES: No cyanosis, or edema. NEUROLOGICAL: awake and alert. moving extremities. Assessment/Plan Problem List: (1) Squamous cell carcinoma of larynx ICD Codes: C32.9 - Malignant neoplasm of larynx, unspecified Status: Acute Plan: --obtain records, proceed with PET scan next Tuesday at [facility]. History --diagnosed in October 2016 after finding of a large laryngeal mass in the piriform sinus causing mass effect on adjacent structures. Biopsy showed moderately differentiated squamous cell carcinoma. --received treatment in [place] with Erbitux and Radiation-->completed around February 2017. We do not have any of her records. --Admitted to [facility] in 2017, CT of the neck which showed a prominent laryngeal soft tissue mass essentially obliterating the larynx. 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 (2) History of liver lesion Plan: --When she was first admitted to the hospital in October 2016 CT showed an indeterminate 1.6 cm lesion in the right lobe of the liver, which could be a hemangioma. -- we may have to repeat a CT of the abdomen for follow-up. (patient also undergoing PET scan on 05/09 at 10AM at [facility]) (3) Chronic obstructive pulmonary disease with acute exacerbation ICD Codes: J44.1 - Chronic obstructive pulmonary disease with (acute) exacerbation Status: Acute Plan: --presented with fever, shortness of breath and cough again. --on antibiotics. Assessment 66y/o female with head and neck cancer. h/o Laryngeal squamous cell carcinoma. Chronic obstructive pulmonary disease. Anxiety. Tobacco dependence. Liver mass noted on prior CT scan. Plan 1. I sent records request to the patient's medical oncologist, Dr. Maik Dawn and the patient's radiation oncologist Dr. Varun Yin, both based out of [facility]. 2. continue antibiotics/supportive care. Attending Statement The exam, history, and the medical decision-making described in the above note were completed with the assistance of the mid-level provider. I reviewed and agree with the findings presented. I attest that I had a [id number] encounter with the patient on the same day, and personally performed and documented my assessment and findings in the medical record. Feeling better, still anxious. Cough has improved. Mild left otalgia. Spoke with her daughter Maylin over the phone. Pt has received XRT with Erbitux completed 02/18. I have get the treating physician info from pt's daughter and will request for records. I told them that I will review her case at the Tumor Board. I have also discussed case with . The CT showed extensive disease in the larynx and seems bigger compared to CT in Mar 2017. this is concerning for progression of disease. The tumor does not appear to be resectable. Pt is scheduled for PET/CT 05/09 which I told her to keep the appt. We also discussed referral to [facility] for 2nd opinion. If she is not a surgical candidate, treatment will be palliative chemotherapy. Padmini Gandara May 03, 2017 11:14 Meliton Romero MD May 03, 2017 13:41
[2017-05-03] MEDS: MONTELUKAST SODIUM 10 MG TAB PO SCH (20:13)
[2017-05-03] MEDS: traZODone HCL 50 MG TAB PO SCH (20:13)
[2017-05-03] MEDS: LEVOFLOXACIN 750 MG PREMIX INJ 150 ML IV SCH (22:17)
[2017-05-04] VITALS (9 sets, daily range): BP systolic 160–179; BP diastolic 78–90; PULSE 59–95; RESP 15–18; TEMP 97–99.2; O2SAT 96–99
[2017-05-04] MEDS: AZTREONAM INJ 1,000 MG in SODIUM CHLORIDE 0.9% INJ 100 ML IV SCH ×3 (00:16→17:03)
[2017-05-04] MEDS: MORPHINE SULFATE 2 MG/ML INJ IV PUSH PRN ×2 (01:28→22:16)
[2017-05-04] MEDS: ACETAMINOPHEN/HYDROcodone 325 MG/5 MG TAB PO PRN ×4 (05:18→19:57)
[2017-05-04] MEDS: ALPRAZolam 1 MG TAB PO PRN ×3 (05:18→21:35)
[2017-05-04] MEDS: ONDANSETRON HCL 4 MG/2 ML VIAL IVP PRN ×2 (05:22→20:09)
[2017-05-04] MEDS: DEXAMETHASONE SOD PHOS 4 MG/ML VIAL IV PUSH SCH ×3 (05:22→22:00)
[2017-05-04] MEDS: ACETAMIN 325 MG/BUTALBITAL 50 MG/CAFFEINE 40 MG TAB PO PRN ×3 (05:24→20:08)
--- NOTE | 2017-05-04 08:37 | HHI.PR ---
Subjective Remarks alert cough white sputum no SOB Objective Vital Signs Date Time Temp Pulse Resp B/P (MAP) Pulse Ox O2 Delivery O2 Flow Rate FiO2 05/04/17 00:11 99 Trach Collar 5.00 50 05/04/17 00:00 99.2 77 18 163/79 (107) 98 05/03/17 20:13 T-Piece 5.00 50 05/03/17 20:00 98.7 97 20 158/75 (102) 100 05/03/17 16:00 98.5 76 20 140/73 (95) 98 05/03/17 12:00 97.5 83 20 126/75 (92) 98 05/03/17 11:38 99 Trach Collar 50 05/03/17 09:30 16 I/O 05/03/17 05/03/17 05/03/17 05/04/17 05/04/17 05/04/17 07:00 15:00 23:00 07:00 15:00 23:00 Intake Total 780 ml 859 ml Balance 780 ml 859 ml Intake Oral 480 ml IV Total 799 ml Tube Feeding 240 ml Tube Irrigant 60 ml 60 ml # Voids 4 # Bowel Movements 1 Result Diagram: 05/02/17 0415 05/02/17 0415 Objective Remarks GENERAL: SKIN: Warm and dry. HEAD: Atraumatic. Normocephalic. EYES: Pupils equal and round. No scleral icterus. No injection or drainage. ENT: No nasal bleeding or discharge. Mucous membranes pink and moist. NECK: Trachea midline. No JVD. CARDIOVASCULAR: Regular rate and rhythm. RESPIRATORY: No accessory muscle use. Clear to auscultation. Breath sounds equal bilaterally. GASTROINTESTINAL: Abdomen soft, non-tender, nondistended. Hepatic and splenic margins not palpable. MUSCULOSKELETAL: Extremities without clubbing, cyanosis, or edema. No obvious deformities. NEUROLOGICAL: Awake and alert. No obvious cranial nerve deficits. Motor grossly within normal limits. Five out of 5 muscle strength in the arms and legs. Normal speech. PSYCHIATRIC: Appropriate mood and affect; insight and judgment normal. Assessment and Plan Assessment and Plan ass laryngeal CA Atelectasis/PNA S/P TRACH PLAN O2 NEEDED ANTIBX BRONCHODILATOR THERAPY F/U CHEST XRAY Aditya Burgess MD May 04, 2017 08:37
[2017-05-04] MEDS: SODIUM CHLORIDE 0.9% FLUSH 10 ML FLUSH IV FLUSH SCH ×2 (09:00→20:09)
[2017-05-04] MEDS: DOCUSATE SODIUM 50 MG/SENNA 8.6 MG TAB PO SCH ×2 (09:00→20:13)
--- NOTE | 2017-05-04 09:33 | HHI.PR ---
Subjective Remarks in no acute distress. overall feeling better. no fever. d/w the RN and no acute issues over night. Objective Vitals Vital Signs Date Time Temp Pulse Resp B/P (MAP) Pulse Ox O2 Delivery O2 Flow Rate FiO2 05/04/17 08:00 97.0 59 17 179/88 (118) 99 05/04/17 00:11 99 Trach Collar 5.00 50 05/04/17 00:00 99.2 77 18 163/79 (107) 98 05/03/17 20:13 T-Piece 5.00 50 05/03/17 20:00 98.7 97 20 158/75 (102) 100 05/03/17 16:00 98.5 76 20 140/73 (95) 98 05/03/17 12:00 97.5 83 20 126/75 (92) 98 05/03/17 11:38 99 Trach Collar 50 I/O 05/03/17 05/03/17 05/03/17 05/04/17 05/04/17 05/04/17 07:00 15:00 23:00 07:00 15:00 23:00 Intake Total 780 ml 859 ml Balance 780 ml 859 ml Intake Oral 480 ml IV Total 799 ml Tube Feeding 240 ml Tube Irrigant 60 ml 60 ml # Voids 4 # Bowel Movements 1 Result Diagram: 05/02/17 0415 05/02/17 0415 Imaging Last Impressions Neck CT 05/02/17 0000 Signed Impressions: Service Date/Time: Tuesday, May 02, 2017 17:54 - CONCLUSION: Some interval progression of disease up into the left parapharyngeal space since previous exam. Marcio Tijerina MD Chest X-Ray 05/01/17 0024 Signed Impressions: Service Date/Time: Monday, May 01, 2017 00:46 - CONCLUSION: 1. Subsegmental basilar airspace disease. No effusion or pneumothorax. Tra Sanabria MD Objective Remarks GENERAL: This is a well-nourished, well-developed patient, in no apparent distress. CARDIOVASCULAR: Regular rate and regular rhythm without murmurs, gallops, or rubs. RESPIRATORY: Clear to auscultation. Breath sounds equal bilaterally. No wheezes , rales, or rhonchi. GASTROINTESTINAL: Abdomen soft, non-tender, nondistended. Normal, active bowel sounds MUSCULOSKELETAL: Extremities without clubbing, cyanosis, or edema. NEURO: Alert & Oriented x4 to person, place, time, situation. Moves all ext x4 Medications and IVs Inpatient Medications Acetaminophen (Tylenol) 650 mg Q6H PRN PO FEVER/PAIN SCALE 1 TO 2; Start at 01:30 Acetaminophen/ Butalbital/ Caffeine (Fioricet 325-50-40) 1 tab Q6H PRN PO HEADACHE Last administered on 05/04/17at 05:24; Start 05/01/17 at 20:00 Acetaminophen/ Hydrocodone Bitart ([place] 5-325 Mg) 1 tab Q4H PRN PO pain >5 Last administered on 05/04/17at 05:18; Start 05/01/17 at 01:30 Albuterol/ Ipratropium (Duoneb Neb) 1 ampule Q4HR NEB PRN NEB SOB/WHEEZING; Start 05/01/17 at 01:30 Alprazolam (Xanax) 2 mg Q8H PRN PO ANXIETY Last administered on 05/04/17at 05:18 ; Start 05/01/17 at 03:00 Aztreonam 1000 mg/ Sodium Chloride 100 ml @ 200 mls/hr Q8H IV Last administered on 05/04/17at 00:16; Start 05/01/17 at 09:00 Aztreonam 2000 mg/ Sodium Chloride 100 ml @ 200 mls/hr ONCE STAT IV Last administered on 05/01/17at 02:15; Start 05/01/17 at 01:05; Stop 05/01/17 at 01:34 ; Status DC Bisacodyl (Dulcolax Supp) 10 mg DAILY PRN RECTAL SEVERE CONSITIPATION; Start at 01:30 Dexamethasone Sodium Phosphate (Decadron Inj) 4 mg Q8HR IV PUSH Last administered on 05/04/17at 05:22; Start 05/01/17 at 06:00 Diphenhydramine HCl (Benadryl) 50 mg Q8H PRN G-TUBE allergies/ insomnia; Start 05/02/17 at 12:00 Enoxaparin Sodium (Lovenox Inj) 30 mg Q24H SQ Last administered on 05/03/17at 10 :57; Start 05/02/17 at 12:00 Hyoscyamine Sulfate (Levsin) 0.25 mg Q4H PRN PO SECRETIONS Last administered on 05/03/17at 09:58; Start 05/01/17 at 03:00 Lactulose (Lactulose Liq) 30 ml DAILY PRN PO SEVERE CONSITIPATION; Start at 01:30 Levofloxacin/ Dextrose 150 ml @ 100 mls/hr Q24H IV Last administered on at 22:17; Start 05/01/17 at 23:00 Magnesium Hydroxide (Milk Of Magnesia Liq) 30 ml Q12H PRN PO Mild constipation ; Start 05/01/17 at 01:30 Montelukast Sodium (Singulair) 10 mg HS PO Last administered on 05/03/17at 20:13 ; Start 05/01/17 at 21:00 Morphine Sulfate (Morphine Inj) 2 mg Q3H PRN IV PUSH breakthrough Last administered on 05/04/17at 01:28; Start 05/01/17 at 01:30 Ondansetron HCl (Zofran Inj) 4 mg Q6H PRN IVP NAUSEA OR VOMITING Last administered on 05/04/17at 05:22; Start 05/01/17 at 01:30 Senna/Docusate Sodium (Dali-Colace) 1 tab BID PO Last administered on at 20:13; Start 05/01/17 at 09:00 Sennosides (Senokot) 17.2 mg Q12H PRN PO Moderate constipation; Start 05/01/17 at 01:30 Sodium Chloride (NS Flush) 2 ml BID IV FLUSH ; Start 05/01/17 at 09:00 Trazodone HCl (Desyrel) 50 mg ONCE ONCE PO Last administered on 05/01/17at 03: 12; Start 05/01/17 at 03:00; Stop 05/01/17 at 03:06; Status DC A/P Problem List: (1) PNA (pneumonia) ICD Code: J18.9 - Pneumonia, unspecified organism (2) COPD (chronic obstructive pulmonary disease) ICD Code: J44.9 - Chronic obstructive pulmonary disease, unspecified (3) Hypoxia ICD Code: R09.02 - Hypoxemia Status: Acute (4) Laryngeal cancer ICD Code: C32.9 - Malignant neoplasm of larynx, unspecified Status: Acute Assessment and Plan Acute on chronic respiratory failure The pt has had a productive cough w/ brown colored sputum, CXR w/ subsegmental bibasilar airspace disease. Likely combination of PNA/COPD/Laryngeal CA w/ extension of malignancy.Pulmonology consult appreciated. - blood cultures negative and sputum culture with pseudomonas - continue IV Abx including aztreonam and Levaquin. - DuoNeb prn as needed. - trach care per pulmonology. - continue IV Decadron. -CXR today. - PT. - IS. Laryngeal cancer S/p radiation. - oncology consult appreciated. - treatment as above. Malnutrition The pt is on bolus feeding but also has PO intake. - continue bolus tube feeds with clear liquid diet. Anemia S/t cancer. Hgb is stable. - follow CBC as needed. Insomnia The pt requests Benadryl. - Benadryl as needed. DVT Prophylaxis: Lovenox, SCD/Teds Discharge Planning when cleared by pulmonary and oncology. pending CXR today. Jeanne Parkinson MD May 04, 2017 09:33
--- NOTE | 2017-05-04 10:36 | RADRPT ---
EXAM DATE/TIME: 05/04/2017 10:19 [place] COMPARISON: CT SOFT TISSUE NECK W CONTRAST, May 02, 2017, 17:54. INDICATIONS : Evaluate lung status. Pnuemonia per order. MEDICAL HISTORY : Hypertension. Chronic obstructive pulmonary disease. Cancer larynx SURGICAL HISTORY : Tracheostomy. ENCOUNTER: Subsequent ACUITY: 3 days PAIN SCORE: 0/10 LOCATION: Bilateral chest FINDINGS: Tracheostomy is present. A left chest port is present in good position and is accessed. There is a adame btle density overlying the lateral right lung apex which could be a focal lung mass. The lungs are ot herwise grossly clear. No significant effusion suspected. Cardiac contours are satisfactory. Thoracic skeleton is grossly intact. CONCLUSION: Nodular density overlying the lateral right upper lobe. Recommend CT chest for further evaluation Marcio Tijerina MD on May 04, 2017 at 10:31 Board Certified Radiologist. This report was verified electronically.
--- NOTE | 2017-05-04 11:00 | PD.ONC.PN ---
Subjective Subjective Remarks Cough has improved. No significant SOB. Eager to go home. Mild left neck pain. Objective Data Date Time Temp Pulse Resp B/P (MAP) Pulse Ox O2 Delivery O2 Flow Rate FiO2 05/04/17 09:37 99 Trach Collar 50 05/04/17 08:00 97.0 59 17 179/88 (118) 99 05/04/17 00:11 99 Trach Collar 5.00 50 05/04/17 00:00 99.2 77 18 163/79 (107) 98 05/03/17 20:13 T-Piece 5.00 50 05/03/17 20:00 98.7 97 20 158/75 (102) 100 05/03/17 16:00 98.5 76 20 140/73 (95) 98 05/03/17 12:00 97.5 83 20 126/75 (92) 98 05/03/17 11:38 99 Trach Collar 50 05/04/17 05/04/17 05/04/17 07:00 15:00 23:00 Intake Total 859 ml Balance 859 ml Result Diagram: 05/02/17 0415 05/02/17 0415 Imaging Studies Last 24 hours Impressions Chest X-Ray 05/04/17 0000 Signed Impressions: Service Date/Time: Thursday, May 04, 2017 10:19 - CONCLUSION: Nodular density overlying the lateral right upper lobe. Recommend CT chest for further evaluation Marcio Tijerina MD Administered Medications Medications (Trade) Dose Ordered Sig/Laure Route PRN Reason Start Time Stop Time Status Last Admin Dose Admin Sodium Chloride 1,000 ml @ 100 mls/hr Q10H IV 05/01/17 01:22 05/03/17 22:10 Ondansetron HCl (Zofran Inj) 4 mg Q6H PRN IVP NAUSEA OR VOMITING 05/01/17 01:30 05/04/17 05:22 Acetaminophen/ Hydrocodone Bitart ([place] 5-325 Mg) 1 tab Q4H PRN PO pain >5 05/01/17 01:30 05/04/17 09:31 Morphine Sulfate (Morphine Inj) 2 mg Q3H PRN IV PUSH breakthrough 05/01/17 01:30 05/04/17 01:28 Senna/Docusate Sodium (Dali-Colace) 1 tab BID PO 05/01/17 09:00 05/03/17 20:13 Levofloxacin/ Dextrose 150 ml @ 100 mls/hr Q24H IV 05/01/17 23:00 05/03/17 22:17 Aztreonam 1000 mg/ Sodium Chloride 100 ml @ 200 mls/hr Q8H IV 05/01/17 09:00 05/04/17 09:37 Dexamethasone Sodium Phosphate (Decadron Inj) 4 mg Q8HR IV PUSH 05/01/17 06:00 05/04/17 05:22 Alprazolam (Xanax) 2 mg Q8H PRN PO ANXIETY 05/01/17 03:00 05/04/17 05:18 Hyoscyamine Sulfate (Levsin) 0.25 mg Q4H PRN PO SECRETIONS 05/01/17 03:00 05/03/17 09:58 Montelukast Sodium (Singulair) 10 mg HS PO 05/01/17 21:00 05/03/17 20:13 Trazodone HCl (Desyrel) 50 mg HS PO 05/01/17 21:00 05/03/17 20:13 Acetaminophen/ Butalbital/ Caffeine (Fioricet 325-50-40) 1 tab Q6H PRN PO HEADACHE 05/01/17 20:00 05/04/17 05:24 Enoxaparin Sodium (Lovenox Inj) 30 mg Q24H SQ 05/02/17 12:00 05/03/17 10:57 Objective Remarks GENERAL: Well-nourished, well-developed patient. Thin SKIN: Warm and dry. HEAD: Normocephalic. EYES: No scleral icterus. No injection or drainage. NECK: Supple, trachea midline. No JVD or lymphadenopathy. trach noted. LYMPHATIC: No adenopathy. CARDIOVASCULAR: Regular rate and rhythm without murmurs. RESPIRATORY: Breath sounds equal bilaterally. No accessory muscle use. GASTROINTESTINAL: Abdomen soft, non-tender, nondistended. PEG tube noted EXTREMITIES: No cyanosis, or edema. MUSCULOSKELETAL: Adequate muscle tone. NEUROLOGICAL: No obvious focal deficit. Awake, alert, and oriented x3. PSYCHIATRIC: Appropriate mood and affect; insight and judgment normal. 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 Pt received XRT and 5- 6 weekly doses of Erbitux. -Discussed with radiologist at tumor board, the laryngeal cancer has progressed , and pt likely not a surgical candidate. History --diagnosed in October 2016 after finding of a large laryngeal mass in the piriform sinus causing mass effect on adjacent structures. Biopsy showed moderately differentiated squamous cell carcinoma. --received treatment in [place] with Erbitux and Radiation-->completed around February 2017. We do not have any of her records. --[place] [facility] [place] of the neck which showed a prominent laryngeal soft tissue mass essentially obliterating the larynx. 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 (2) History of liver lesion Plan: --When she was first admitted to the hospital in October 2016 CT showed an indeterminate 1.6 cm lesion in the right lobe of the liver, which could be a hemangioma. -- we may have to repeat a CT of the abdomen for follow-up. (patient also undergoing PET scan on 05/09 at 10AM at [facility]) (3) Chronic obstructive pulmonary disease with acute exacerbation ICD Codes: J44.1 - Chronic obstructive pulmonary disease with (acute) exacerbation Status: Acute Plan: --presented with fever, shortness of breath and cough again. --on antibiotics. Sputum cx +pseudomonas, Improving. Assessment 66y/o female with head and neck cancer. h/o Laryngeal squamous cell carcinoma. Chronic obstructive pulmonary disease. Anxiety. Tobacco dependence. Liver mass noted on prior CT scan. Plan 1. reviewed outside records. 2. Discussed with tumor board and pt's daughter. 3. Pt scheduled for PET/CT 05/09 and I told her to keep the appt. 4. F/u oncology clinic after d/c. 5. continue antibiotics/supportive care. 6. Pt can be d/c from oncology standpoint Meliton Romero MD May 04, 2017 11:00
[2017-05-04] MEDS: SODIUM CHLOR 0.9% 1000 ML INJ 1,000 ML IV SCH ×2 (13:41→16:00)
[2017-05-04] MEDS: ENOXAPARIN SODIUM 30 MG/0.3 ML SYRINGE SQ SCH (13:42)
[2017-05-04] MEDS: MONTELUKAST SODIUM 10 MG TAB PO SCH (19:56)
[2017-05-04] MEDS: traZODone HCL 50 MG TAB PO SCH (20:00)
[2017-05-04] MEDS: LEVOFLOXACIN 750 MG PREMIX INJ 150 ML IV SCH (22:16)
[2017-05-05] VITALS: BP 150/75; PULSE 80; PULSE 90; RESP 15; TEMP 98.4; O2SAT 99
[2017-05-05] MEDS: AZTREONAM INJ 1,000 MG in SODIUM CHLORIDE 0.9% INJ 100 ML IV SCH ×3 (00:11→15:57)
[2017-05-05 04:00] VITALS: BP 155/70; PULSE 82; RESP 15; TEMP 96.8; O2SAT 100
[2017-05-05] MEDS: ACETAMINOPHEN/HYDROcodone 325 MG/5 MG TAB PO PRN ×4 (04:41→21:05)
[2017-05-05] MEDS: ONDANSETRON HCL 4 MG/2 ML VIAL IVP PRN ×2 (04:47→12:14)
[2017-05-05] MEDS: DEXAMETHASONE SOD PHOS 4 MG/ML VIAL IV PUSH SCH ×3 (04:47→21:06)
[2017-05-05] MEDS: ACETAMIN 325 MG/BUTALBITAL 50 MG/CAFFEINE 40 MG TAB PO PRN ×2 (04:48→19:35)
[2017-05-05] MEDS: SODIUM CHLOR 0.9% 1000 ML INJ 1,000 ML IV SCH ×2 (04:52→15:22)
[2017-05-05] MEDS: ALPRAZolam 1 MG TAB PO PRN ×3 (04:57→21:05)
[2017-05-05 08:00] VITALS: BP 150/82; PULSE 64; RESP 16; TEMP 98.4; O2SAT 97
[2017-05-05] MEDS: MORPHINE SULFATE 2 MG/ML INJ IV PUSH PRN ×3 (08:10→18:04)
[2017-05-05] MEDS: SODIUM CHLORIDE 0.9% FLUSH 10 ML FLUSH IV FLUSH SCH ×2 (08:10→19:35)
[2017-05-05] MEDS: DOCUSATE SODIUM 50 MG/SENNA 8.6 MG TAB PO SCH ×2 (08:11→19:35)
[2017-05-05] MEDS ORDERED: LEVA500T33 PO ×2 (09:56→10:04)
--- NOTE | 2017-05-05 10:00 | HHI.PR ---
Subjective Remarks in no acute distress. resting comfortably. denies pain. no fever. Objective Vitals Vital Signs Date Time Temp Pulse Resp B/P (MAP) Pulse Ox O2 Delivery O2 Flow Rate FiO2 05/05/17 08:00 98.4 64 16 150/82 (104) 97 05/05/17 06:07 20 05/05/17 06:07 20 05/05/17 04:00 96.8 82 15 155/70 (98) 100 05/05/17 00:00 98.4 80 15 150/75 (100) 99 05/04/17 23:30 18 05/04/17 20:00 98.2 86 15 176/84 (114) 98 05/04/17 20:00 94 05/04/17 19:30 Trach Collar 7.00 50 05/04/17 18:16 96 Trach Collar 6.00 50 05/04/17 16:00 98.5 95 17 160/78 (105) 96 05/04/17 13:47 92 05/04/17 12:00 98.6 65 17 165/90 (115) 98 I/O 05/04/17 05/04/17 05/04/17 05/05/17 05/05/17 05/05/17 07:00 15:00 23:00 07:00 15:00 23:00 Intake Total 859 ml 3000 ml 450 ml Balance 859 ml 3000 ml 450 ml Intake Oral 1440 ml 450 ml IV Total 799 ml 1200 ml Tube Feeding 360 ml Tube Irrigant 60 ml # Voids 10 3 # Bowel Movements 2 0 Result Diagram: 05/02/17 0415 05/02/17 0415 Imaging Last Impressions Chest X-Ray 05/04/17 0000 Signed Impressions: Service Date/Time: Thursday, May 04, 2017 10:19 - CONCLUSION: Nodular density overlying the lateral right upper lobe. Recommend CT chest for further evaluation Marcio Tijerina MD Neck CT 05/02/17 0000 Signed Impressions: Service Date/Time: Tuesday, May 02, 2017 17:54 - CONCLUSION: Some interval progression of disease up into the left parapharyngeal space since previous exam. Marcio Tijerina MD Objective Remarks GENERAL: This is a well-nourished, well-developed patient, in no apparent distress. CARDIOVASCULAR: Regular rate and regular rhythm without murmurs, gallops, or rubs. RESPIRATORY: Clear to auscultation. Breath sounds equal bilaterally. No wheezes , rales, or rhonchi. GASTROINTESTINAL: Abdomen soft, non-tender, nondistended. Normal, active bowel sounds MUSCULOSKELETAL: Extremities without clubbing, cyanosis, or edema. NEURO: Alert & Oriented x4 to person, place, time, situation. Moves all ext x4 Procedures none Medications and IVs Inpatient Medications Acetaminophen (Tylenol) 650 mg Q6H PRN PO FEVER/PAIN SCALE 1 TO 2; Start at 01:30 Acetaminophen/ Butalbital/ Caffeine (Fioricet 325-50-40) 1 tab Q6H PRN PO HEADACHE Last administered on 05/05/17at 04:48; Start 05/01/17 at 20:00 Acetaminophen/ Hydrocodone Bitart ([place] 5-325 Mg) 1 tab Q4H PRN PO pain >5 Last administered on 05/05/17at 09:30; Start 05/01/17 at 01:30 Albuterol/ Ipratropium (Duoneb Neb) 1 ampule Q4HR NEB PRN NEB SOB/WHEEZING; Start 05/01/17 at 01:30 Alprazolam (Xanax) 2 mg Q8H PRN PO ANXIETY Last administered on 05/05/17at 04:57 ; Start 05/01/17 at 03:00 Aztreonam 1000 mg/ Sodium Chloride 100 ml @ 200 mls/hr Q8H IV Last administered on 05/05/17at 08:10; Start 05/01/17 at 09:00 Aztreonam 2000 mg/ Sodium Chloride 100 ml @ 200 mls/hr ONCE STAT IV Last administered on 05/01/17at 02:15; Start 05/01/17 at 01:05; Stop 05/01/17 at 01:34 ; Status DC Bisacodyl (Dulcolax Supp) 10 mg DAILY PRN RECTAL SEVERE CONSITIPATION; Start at 01:30 Dexamethasone Sodium Phosphate (Decadron Inj) 4 mg Q8HR IV PUSH Last administered on 05/05/17at 04:47; Start 05/01/17 at 06:00 Diphenhydramine HCl (Benadryl) 50 mg Q8H PRN G-TUBE allergies/ insomnia; Start 05/02/17 at 12:00 Enoxaparin Sodium (Lovenox Inj) 30 mg Q24H SQ Last administered on 05/04/17at 13 :42; Start 05/02/17 at 12:00 Hyoscyamine Sulfate (Levsin) 0.25 mg Q4H PRN PO SECRETIONS Last administered on 05/03/17 09:58; Start 05/01/17 at 03:00 Lactulose (Lactulose Liq) 30 ml DAILY PRN PO SEVERE CONSITIPATION; Start at 01:30 Levofloxacin/ Dextrose 150 ml @ 100 mls/hr Q24H IV Last administered on 22:16; Start 05/01/17 at 23:00 Magnesium Hydroxide (Milk Of Magnesia Liq) 30 ml Q12H PRN PO Mild constipation ; Start 05/01/17 at 01:30 Montelukast Sodium (Singulair) 10 mg HS PO Last administered on 05/04/17at 19:56 ; Start 05/01/17 at 21:00 Morphine Sulfate (Morphine Inj) 2 mg Q3H PRN IV PUSH breakthrough Last administered on 05/05/17 08:10; Start 05/01/17 at 01:30 Ondansetron HCl (Zofran Inj) 4 mg Q6H PRN IVP NAUSEA OR VOMITING Last administered on 05/05/17 04:47; Start 05/01/17 at 01:30 Senna/Docusate Sodium (Dali-Colace) 1 tab BID PO Last administered on 08:11; Start 05/01/17 at 09:00 Sennosides (Senokot) 17.2 mg Q12H PRN PO Moderate constipation; Start 05/01/17 at 01:30 Sodium Chloride (NS Flush) 2 ml BID IV FLUSH Last administered on 05/05/17 08: 10; Start 05/01/17 at 09:00 Trazodone HCl (Desyrel) 50 mg ONCE ONCE PO Last administered on 05/01/17 03: 12; Start 05/01/17 at 03:00; Stop 05/01/17 at 03:06; Status DC A/P Problem List: (1) PNA (pneumonia) ICD Code: J18.9 - Pneumonia, unspecified organism (2) COPD (chronic obstructive pulmonary disease) ICD Code: J44.9 - Chronic obstructive pulmonary disease, unspecified (3) Hypoxia ICD Code: R09.02 - Hypoxemia Status: Acute (4) Laryngeal cancer ICD Code: C32.9 - Malignant neoplasm of larynx, unspecified Status: Acute Assessment and Plan Acute on chronic respiratory failure pulmonary nodule The pt has had a productive cough w/ brown colored sputum, CXR w/ subsegmental bibasilar airspace disease. Likely combination of PNA/COPD/Laryngeal CA w/ extension of malignancy.Pulmonology consult appreciated. - blood cultures negative and sputum culture with pseudomonas - switch to po levaquin upon discharge. - DuoNeb prn as needed. - trach care per pulmonology. - continue IV Decadron; switch to po steroids upon discharge. -CT of the chest today. - PT. - IS. Laryngeal cancer S/p radiation. - oncology consult appreciated. -f/u as outpatient. - treatment as above. Malnutrition The pt is on bolus feeding but also has PO intake. - continue bolus tube feeds with clear liquid diet. Anemia S/t cancer. Hgb is stable. - follow CBC as needed. Insomnia The pt requests Benadryl. - Benadryl as needed. DVT Prophylaxis: Lovenox, SCD/Teds Discharge Planning dc home today- after the CT chest. see med list. f/u; pcp,oncology and pulmonary. d/w the patient and RN. d/w and Oncology. Jeanne Parkinson MD May 05, 2017 10:00
[2017-05-05] MEDS ORDERED: PRED5TAB PO (10:04)
--- NOTE | 2017-05-05 10:04 | HHI.DS ---
Discharge Summary Admission Date May 01, 2017 at 01:18 Discharge Date: May 05, 2017 Admitting Diagnosis hypoxia, pneumonia (1) PNA (pneumonia) ICD Code: J18.9 - Pneumonia, unspecified organism Diagnosis: Principal (2) COPD (chronic obstructive pulmonary disease) ICD Code: J44.9 - Chronic obstructive pulmonary disease, unspecified Diagnosis: Principal (3) Hypoxia ICD Code: R09.02 - Hypoxemia Diagnosis: Principal Status: Acute (4) Laryngeal cancer ICD Code: C32.9 - Malignant neoplasm of larynx, unspecified Diagnosis: Principal Status: Acute Procedures none Brief History - From Admission This is a 66-year-old female with a PMH of HTN, Anxiety, COPD, Laryngeal CA s/p Trach, PEG Tube and Tobacco Abuse who presented to the ER w/ c/o SOB, productive sputum and hypoxia. Sons at bedside also report fever at home. Recent admit 04/13-04/14/17 for c/o dizziness, Carotid US w/ occlusion of left internal carotid artery w/ large soft tissue mass consistent w/ extralaryngeal extension of malignancy, seen by Dr. Forde after discharge, plan was to obtain outpatient records. Returns to ER today w/ recurrent SOB. On arrival, noted to have O2 sat 88%, placed on 50% Trach Collar. States she was supposed to be set up w/ Humidifier at home, still awaiting arrangements. CBC essentially unremarkable. Chemistry unremarkable. Lactic Acid normal. CXR with subsegmental atelectasis bilaterally. S/p Levaquin/Azactam in ER. CBC/BMP: 05/02/17 0415 05/02/17 0415 Imaging Last Impressions Chest X-Ray 05/04/17 0000 Signed Impressions: Service Date/Time: Thursday, May 04, 2017 10:19 - CONCLUSION: Nodular density overlying the lateral right upper lobe. Recommend CT chest for further evaluation Marcio Tijerina MD Neck CT 05/02/17 0000 Signed Impressions: Service Date/Time: Tuesday, May 02, 2017 17:54 - CONCLUSION: Some interval progression of disease up into the left parapharyngeal space since previous exam. Marcio Tijerina MD PE at Discharge GENERAL: This is a well-nourished, well-developed patient, in no apparent distress. CARDIOVASCULAR: Regular rate and regular rhythm without murmurs, gallops, or rubs. RESPIRATORY: Clear to auscultation. Breath sounds equal bilaterally. No wheezes , rales, or rhonchi. GASTROINTESTINAL: Abdomen soft, non-tender, nondistended. Normal, active bowel sounds MUSCULOSKELETAL: Extremities without clubbing, cyanosis, or edema. NEURO: Alert & Oriented x4 to person, place, time, situation. Moves all ext x4 Hospital Course Acute on chronic respiratory failure pulmonary nodule The pt has had a productive cough w/ brown colored sputum, CXR w/ subsegmental bibasilar airspace disease. Likely combination of PNA/COPD/Laryngeal CA w/ extension of malignancy.Pulmonology consult appreciated. - blood cultures negative and sputum culture with pseudomonas - switch to po levaquin upon discharge. - DuoNeb prn as needed. - trach care per pulmonology. - continue IV Decadron; switch to po steroids upon discharge. -CT of the chest today. - PT. - IS. Laryngeal cancer S/p radiation. - oncology consult appreciated. -f/u as outpatient. - treatment as above. Malnutrition The pt is on bolus feeding but also has PO intake. - continue bolus tube feeds with clear liquid diet. Anemia S/t cancer. Hgb is stable. - follow CBC as needed. Insomnia The pt requests Benadryl. - Benadryl as needed. Pt Condition on Discharge: Stable Discharge Disposition: Discharge Home Discharge Time: <= 30 minutes Discharge Instructions DIET: Follow Instructions for: Heart Healthy Diet Activities you can perform: Regular-No Restrictions Jeanne Parkinson MD May 05, 2017 10:04
--- NOTE | 2017-05-05 11:05 | PD.ONC.PN ---
Subjective Subjective Remarks Afebrile overnight. Patient anxious. she is going home today and wants to know if her passy chantelle valve is being reordered. tolerated bolus tube feeds this AM. Objective Data Date Time Temp Pulse Resp B/P (MAP) Pulse Ox O2 Delivery O2 Flow Rate FiO2 05/05/17 08:00 98.4 64 16 150/82 (104) 97 05/05/17 06:07 20 05/05/17 06:07 20 05/05/17 04:00 96.8 82 15 155/70 (98) 100 05/05/17 00:00 98.4 80 15 150/75 (100) 99 05/04/17 23:30 18 05/04/17 20:00 98.2 86 15 176/84 (114) 98 05/04/17 20:00 94 05/04/17 19:30 Trach Collar 7.00 50 05/04/17 18:16 96 Trach Collar 6.00 50 05/04/17 16:00 98.5 95 17 160/78 (105) 96 05/04/17 13:47 92 05/04/17 12:00 98.6 65 17 165/90 (115) 98 05/05/17 05/05/17 05/05/17 07:00 15:00 23:00 Intake Total 450 ml Balance 450 ml Result Diagram: 05/02/17 0415 05/02/17 0415 Administered Medications Medications (Trade) Dose Ordered Sig/Laure Route PRN Reason Start Time Stop Time Status Last Admin Dose Admin Sodium Chloride 1,000 ml @ 100 mls/hr Q10H IV 05/01/17 01:22 05/05/17 04:52 Sodium Chloride (NS Flush) 2 ml BID IV FLUSH 05/01/17 09:00 05/05/17 08:10 Ondansetron HCl (Zofran Inj) 4 mg Q6H PRN IVP NAUSEA OR VOMITING 05/01/17 01:30 05/05/17 04:47 Acetaminophen/ Hydrocodone Bitart ([place] 5-325 Mg) 1 tab Q4H PRN PO pain >5 05/01/17 01:30 05/05/17 09:30 Morphine Sulfate (Morphine Inj) 2 mg Q3H PRN IV PUSH breakthrough 05/01/17 01:30 05/05/17 08:10 Senna/Docusate Sodium (Dali-Colace) 1 tab BID PO 05/01/17 09:00 05/05/17 08:11 Levofloxacin/ Dextrose 150 ml @ 100 mls/hr Q24H IV 05/01/17 23:00 05/04/17 22:16 Aztreonam 1000 mg/ Sodium Chloride 100 ml @ 200 mls/hr Q8H IV 05/01/17 09:00 05/05/17 08:10 Dexamethasone Sodium Phosphate (Decadron Inj) 4 mg Q8HR IV PUSH 05/01/17 06:00 05/05/17 04:47 Alprazolam (Xanax) 2 mg Q8H PRN PO ANXIETY 05/01/17 03:00 05/05/17 04:57 Hyoscyamine Sulfate (Levsin) 0.25 mg Q4H PRN PO SECRETIONS 05/01/17 03:00 05/03/17 09:58 Montelukast Sodium (Singulair) 10 mg HS PO 05/01/17 21:00 05/04/17 19:56 Trazodone HCl (Desyrel) 50 mg HS PO 05/01/17 21:00 05/04/17 20:00 Acetaminophen/ Butalbital/ Caffeine (Fioricet 325-50-40) 1 tab Q6H PRN PO HEADACHE 05/01/17 20:00 05/05/17 04:48 Enoxaparin Sodium (Lovenox Inj) 30 mg Q24H SQ 05/02/17 12:00 05/04/17 13:42 Objective Remarks GENERAL: Pleasant middle aged female, very anxious, sitting up in bed. SKIN: Warm and dry. HEAD: Normocephalic. EYES: No scleral icterus. No injection or drainage. NECK: Supple, trachea midline. trach in place. CARDIOVASCULAR: Regular rate and rhythm RESPIRATORY: Breath sounds equal bilaterally. No accessory muscle use. GASTROINTESTINAL: Abdomen soft, non-tender, nondistended. EXTREMITIES: No cyanosis NEUROLOGICAL: awake and alert. non-verbal d/t trach. moving all extremities. 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 Pt received XRT and 5- 6 weekly doses of Erbitux. -Discussed with radiologist at tumor board, the laryngeal cancer has progressed , and pt likely not a surgical candidate. History --diagnosed in October 2016 after finding of a large laryngeal mass in the piriform sinus causing mass effect on adjacent structures. Biopsy showed moderately differentiated squamous cell carcinoma. --received treatment in [place] with Erbitux and Radiation-->completed around February 2017. We do not have any of her records. --[place] [facility] [place] the neck which showed a prominent laryngeal soft tissue mass essentially obliterating the larynx. 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 (2) History of liver lesion Plan: --When she was first admitted to the hospital in October 2016 CT showed an indeterminate 1.6 cm lesion in the right lobe of the liver, which could be a hemangioma. -- plan for outpatient PET scan on 05/09 at 10AM at [facility]) (3) Chronic obstructive pulmonary disease with acute exacerbation ICD Codes: J44.1 - Chronic obstructive pulmonary disease with (acute) exacerbation Status: Acute Plan: --presented with fever, shortness of breath and cough again. --on antibiotics. Sputum cx +pseudomonas, Improving. Assessment 66y/o female with head and neck cancer. h/o Laryngeal squamous cell carcinoma. Chronic obstructive pulmonary disease. Anxiety. Tobacco dependence. Liver mass noted on prior CT scan. Plan 1. clear for discharge from oncology perspective. 2. follow up in clinic next week after PET/CT Attending Statement The exam, history, and the medical decision-making described in the above note were completed with the assistance of the mid-level provider. I reviewed and agree with the findings presented. I attest that I had a [id number] encounter with the patient on the same day, and personally performed and documented my assessment and findings in the medical record. SOB/cough improved. Mild neck discomfort. Eager to go home. Told her to have the PET scan done next week and f/u oncology clinic. Will refer her to Padmini Suero May 05, 2017 11:05 Meliton Romero MD May 05, 2017 11:24
--- NOTE | 2017-05-05 11:10 | HHI.FF ---
Face to Face Verification Diagnosis: (1) Hypoxia (2) Laryngeal cancer Home Health Nursing Order: Medical education Signs/symptoms of disease process Medication education-adverse effect Nursing assessment with vital signs I have seen patient Katy Desouza on 05/05/17. My clinical findings support the need for the requested home health care services because: Ltd mobility - disease progression Patient has SOB I certify that my clinical findings support that this patient is homebound because: Hx COPD- exertion dyspnea/weakness Jeanne Parkinson MD May 05, 2017 11:10
--- NOTE | 2017-05-05 11:28 | RADRPT ---
EXAM DATE/TIME: 05/05/2017 10:37 [place] COMPARISON: CHEST PA & LAT, May 04, 2017, 10:19. INDICATIONS : Pulmonary nodule RADIATION DOSE: 3.75 CTDIvol (mGy) MEDICAL HISTORY : Chronic obstructive pulmonary disease. Hypertension. SURGICAL HISTORY : Tracheotomy ENCOUNTER: Initial ACUITY: 1 day PAIN SCALE: 0/10 LOCATION: chest TECHNIQUE: Volumetric scanning of the chest was performed. Using automated exposure control and adjustment of t he mA and/or kV according to patient size, radiation dose was kept as low as reasonably achievable to obtain optimal diagnostic quality images. DICOM format image data is available electronically for r eview and comparison. Follow-up recommendations for detected pulmonary nodules are based at a minimum on nodule size and pa tient risk factors according to Fleischner Society Guidelines. FINDINGS: LUNGS: Examination was performed to characterize ill-defined opacity upper lateral right chest on recent trino st x-ray. No focal infiltrate or nodule seen in this area. There is a 7 mm pulmonary nodule in the medial right midlung, best seen on image #30. A subpleural nodule is seen in the lateral right midlu ng measuring 4 mm, best seen on image #16 and there is also a 4 mm nodule on the same axial image in the medial paraspinal left lung. In the lateral left costophrenic angle, there is a focal area of co nsolidation which measures 2.6 cm in the left and 6 mm in thickness. Mild upper lobe emphysema. PLEURAE: There is no pleural thickening or pleural effusion. MEDIASTINUM: No evidence of mediastinal adenopathy. Coronary artery calcifications. AXILLAE: Within normal limits. No lymphadenopathy. MUSCULOSKELETAL: Within normal limits for patient age. MISCELLANEOUS: Endotracheal tube tip well above the mendoza. Left central line catheter tip in the distal superior v ben cava. CONCLUSION: 1. No opacity or infiltrate in the lateral right upper lung. 2. There are 3 pulmonary nodules measuring up to 7 mm in size, 2 in the right, one on the left. In a ccordance with Fleischner Society guidelines, recommend followup examination in 6 months. 3. Small area of consolidation or atelectasis lateral left costophrenic angle. Jasen Hardwick MD on May 05, 2017 at 11:22 Board Certified Radiologist. This report was verified electronically.
[2017-05-05 12:00] VITALS: BP 159/84; PULSE 84; RESP 16; TEMP 98.4; O2SAT 98
[2017-05-05] MEDS: ENOXAPARIN SODIUM 30 MG/0.3 ML SYRINGE SQ SCH (12:14)
--- NOTE | 2017-05-05 17:04 | HHI.PR ---
Subjective Remarks alert cough white sputum no SOB Objective Vital Signs Date Time Temp Pulse Resp B/P (MAP) Pulse Ox O2 Delivery O2 Flow Rate FiO2 05/05/17 12:00 98.4 84 16 159/84 (109) 98 05/05/17 08:45 Trach Collar 7.00 50 05/05/17 08:00 98.4 64 16 150/82 (104) 97 05/05/17 06:07 20 05/05/17 06:07 20 05/05/17 04:00 96.8 82 15 155/70 (98) 100 05/05/17 00:00 98.4 80 15 150/75 (100) 99 05/04/17 23:30 18 05/04/17 20:00 98.2 86 15 176/84 (114) 98 05/04/17 20:00 94 05/04/17 19:30 Trach Collar 7.00 50 05/04/17 18:16 96 Trach Collar 6.00 50 I/O 05/04/17 05/04/17 05/04/17 05/05/17 05/05/17 05/05/17 07:00 15:00 23:00 07:00 15:00 23:00 Intake Total 859 ml 3000 ml 450 ml Balance 859 ml 3000 ml 450 ml Intake Oral 1440 ml 450 ml IV Total 799 ml 1200 ml Tube Feeding 360 ml Tube Irrigant 60 ml # Voids 10 3 # Bowel Movements 2 0 Result Diagram: 05/02/1741405/02/17414 Objective Remarks GENERAL: SKIN: Warm and dry. HEAD: Atraumatic. Normocephalic. EYES: Pupils equal and round. No scleral icterus. No injection or drainage. ENT: No nasal bleeding or discharge. Mucous membranes pink and moist. NECK: Trachea midline. No JVD. CARDIOVASCULAR: Regular rate and rhythm. RESPIRATORY: No accessory muscle use. Clear to auscultation. Breath sounds equal bilaterally. GASTROINTESTINAL: Abdomen soft, non-tender, nondistended. Hepatic and splenic margins not palpable. MUSCULOSKELETAL: Extremities without clubbing, cyanosis, or edema. No obvious deformities. NEUROLOGICAL: Awake and alert. No obvious cranial nerve deficits. Motor grossly within normal limits. Five out of 5 muscle strength in the arms and legs. Normal speech. PSYCHIATRIC: Appropriate mood and affect; insight and judgment normal. Assessment and Plan Assessment and Plan ass laryngeal CA Atelectasis/PNA S/P TRACH [address] PLAN O2 NEEDED ANTIBX BRONCHODILATOR THERAPY OK FOR D/C F/U CT 6 MONTHS OFFICE 2 WEEKS Aditya Burgess MD May 05, 2017 17:04
[2017-05-05 17:26] VITALS: O2SAT 98
[2017-05-05] MEDS: traZODone HCL 50 MG TAB PO SCH (19:35)
[2017-05-05] MEDS: MONTELUKAST SODIUM 10 MG TAB PO SCH (19:35)
[2017-05-05 20:00] VITALS: BP 170/84; PULSE 68; RESP 16; TEMP 98.8; O2SAT 97
[2017-05-06] MEDS: LEVOFLOXACIN 750 MG PREMIX INJ 150 ML IV SCH (00:39)
[2017-05-06] MEDS: AZTREONAM INJ 1,000 MG in SODIUM CHLORIDE 0.9% INJ 100 ML IV SCH ×2 (00:39→08:04)
[2017-05-06] MEDS: ACETAMINOPHEN/HYDROcodone 325 MG/5 MG TAB PO PRN ×3 (00:45→08:42)
[2017-05-06] MEDS: SODIUM CHLOR 0.9% 1000 ML INJ 1,000 ML IV SCH (01:22)
[2017-05-06] MEDS: ACETAMIN 325 MG/BUTALBITAL 50 MG/CAFFEINE 40 MG TAB PO PRN ×2 (02:30→08:04)
[2017-05-06] MEDS: ONDANSETRON HCL 4 MG/2 ML VIAL IVP PRN ×2 (02:38→08:42)
[2017-05-06] MEDS: ALPRAZolam 1 MG TAB PO PRN (04:53)
[2017-05-06] MEDS: DEXAMETHASONE SOD PHOS 4 MG/ML VIAL IV PUSH SCH (04:54)
[2017-05-06 08:00] VITALS: BP 160/75; PULSE 96; RESP 18; TEMP 98.2; O2SAT 98
[2017-05-06] MEDS: SODIUM CHLORIDE 0.9% FLUSH 10 ML FLUSH IV FLUSH SCH (08:04)
[2017-05-06] MEDS: DOCUSATE SODIUM 50 MG/SENNA 8.6 MG TAB PO SCH (08:04)
[2017-05-06] MEDS: MORPHINE SULFATE 2 MG/ML INJ IV PUSH PRN (08:05)
--- NOTE | 2017-05-06 08:09 | PD.ONC.PN ---
Subjective Subjective Remarks Feeling better, wants to go home. Denies SOB/CP. Objective Data Date Time Temp Pulse Resp B/P (MAP) Pulse Ox O2 Delivery O2 Flow Rate FiO2 05/06/17 07:12 20 05/05/17 21:30 50 05/05/17 20:50 20 05/05/17 20:00 98.8 68 16 170/84 (112) 97 05/05/17 17:26 98 T-piece 6.00 05/05/17 12:00 98.4 84 16 159/84 (109) 98 05/05/17 08:45 Trach Collar 7.00 50 05/06/17 05/06/17 05/06/17 07:00 15:00 23:00 Intake Total 150 ml Balance 150 ml Result Diagram: 05/02/175 05/02/17414 Administered Medications Medications (Trade) Dose Ordered Sig/Laure Route PRN Reason Start Time Stop Time Status Last Admin Dose Admin Sodium Chloride 1,000 ml @ 100 mls/hr Q10H IV 05/01/17 01:22 05/06/17 01:22 Sodium Chloride (NS Flush) 2 ml BID IV FLUSH 05/01/17 09:00 05/05/17 08:10 Ondansetron HCl (Zofran Inj) 4 mg Q6H PRN IVP NAUSEA OR VOMITING 05/01/17 01:30 05/06/17 02:38 Acetaminophen/ Hydrocodone Bitart ([place] 5-325 Mg) 1 tab Q4H PRN PO pain >5 05/01/17 01:30 05/06/17 04:53 Morphine Sulfate (Morphine Inj) 2 mg Q3H PRN IV PUSH breakthrough 05/01/17 01:30 05/05/17 18:04 Senna/Docusate Sodium (Dali-Colace) 1 tab BID PO 05/01/17 09:00 05/05/17 08:11 Levofloxacin/ Dextrose 150 ml @ 100 mls/hr Q24H IV 05/01/17 23:00 05/06/17 00:39 Aztreonam 1000 mg/ Sodium Chloride 100 ml @ 200 mls/hr Q8H IV 05/01/17 09:00 05/06/17 00:39 Dexamethasone Sodium Phosphate (Decadron Inj) 4 mg Q8HR IV PUSH 05/01/17 06:00 05/06/17 04:54 Alprazolam (Xanax) 2 mg Q8H PRN PO ANXIETY 05/01/17 03:00 05/06/17 04:53 Hyoscyamine Sulfate (Levsin) 0.25 mg Q4H PRN PO SECRETIONS 05/01/17 03:00 05/03/17 09:58 Montelukast Sodium (Singulair) 10 mg HS PO 05/01/17 21:00 05/05/17 19:35 Trazodone HCl (Desyrel) 50 mg HS PO 05/01/17 21:00 05/05/17 19:35 Acetaminophen/ Butalbital/ Caffeine (Fioricet 325-50-40) 1 tab Q6H PRN PO HEADACHE 05/01/17 20:00 05/06/17 02:30 Enoxaparin Sodium (Lovenox Inj) 30 mg Q24H SQ 05/02/17 12:00 05/05/17 12:14 Objective Remarks GENERAL: Well-nourished, well-developed patient. Thin SKIN: Warm and dry. HEAD: Normocephalic. EYES: No scleral icterus. No injection or drainage. NECK: Supple, trachea midline. No JVD or lymphadenopathy. Trach noted LYMPHATIC: No adenopathy. CARDIOVASCULAR: Regular rate and rhythm without murmurs. RESPIRATORY: Breath sounds equal bilaterally. No accessory muscle use. GASTROINTESTINAL: Abdomen soft, non-tender, nondistended. PEG tube noted EXTREMITIES: No cyanosis, or edema. MUSCULOSKELETAL: Adequate muscle tone. NEUROLOGICAL: No obvious focal deficit. Awake, alert, and oriented x3. PSYCHIATRIC: Appropriate mood and affect; insight and judgment normal. 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 Pt received XRT and 5- 6 weekly doses of Erbitux. -Discussed with radiologist at tumor board, the laryngeal cancer has progressed , and pt likely not a surgical candidate. History --diagnosed in October 2016 after finding of a large laryngeal mass in the piriform sinus causing mass effect on adjacent structures. Biopsy showed moderately differentiated squamous cell carcinoma. --received treatment in [place] with Erbitux and Radiation-->completed around February 2017. We do not have any of her records. --Admitted to [facility] in 2017, CT of the neck which showed a prominent laryngeal soft tissue mass essentially obliterating the larynx. 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 (2) History of liver lesion Plan: --When she was first admitted to the hospital in October 2016 CT showed an indeterminate 1.6 cm lesion in the right lobe of the liver, which could be a hemangioma. -- plan for outpatient PET scan on 05/09 at 10AM at [facility]) (3) Chronic obstructive pulmonary disease with acute exacerbation ICD Codes: J44.1 - Chronic obstructive pulmonary disease with (acute) exacerbation Status: Acute Plan: --presented with fever, shortness of breath and cough again. --on antibiotics. Sputum cx +pseudomonas, Improved Assessment 66y/o female with head and neck cancer. h/o Laryngeal squamous cell carcinoma. Chronic obstructive pulmonary disease. Anxiety. Tobacco dependence. Liver mass noted on prior CT scan. Plan 1. clear for discharge from oncology perspective. 2. follow up in clinic next week 3. Pt is scheduled for PET/CT 05/09/2017 Attending Statement The exam, history, and the medical decision-making described in the above note were completed with the assistance of the mid-level provider. I reviewed and agree with the findings presented. I attest that I had a [id number] encounter with the patient on the same day, and personally performed and documented my assessment and findings in the medical record. Meliton Romero MD May 06, 2017 08:09
--- NOTE | 2017-05-06 08:32 | HHI.PR ---
Subjective Remarks in no acute distress. couldn't be discharged yesterday - awaiting home supplies. no new complaints today. afebrile. Objective Vitals Vital Signs Date Time Temp Pulse Resp B/P (MAP) Pulse Ox O2 Delivery O2 Flow Rate FiO2 05/06/17 08:15 Humidified 05/06/17 07:12 20 05/05/17 21:30 50 05/05/17 20:50 20 05/05/17 20:00 98.8 68 16 170/84 (112) 97 05/05/17 17:26 98 T-piece 6.00 05/05/17 12:00 98.4 84 16 159/84 (109) 98 05/05/17 08:45 Trach Collar 7.00 50 I/O 05/05/17 05/05/17 05/05/17 05/06/17 05/06/17 05/06/17 07:00 15:00 23:00 07:00 15:00 23:00 Intake Total 450 ml 1405 ml 150 ml Balance 450 ml 1405 ml 150 ml Intake Oral 450 ml 475 ml 150 ml Tube Feeding 730 ml Tube Irrigant 200 ml # Voids 3 5 3 # Bowel Movements 0 2 Result Diagram: 05/02/17 0415 05/02/17 0415 Imaging Last Impressions Chest CT 05/05/17 0000 Signed Impressions: Service Date/Time: April 10:37 - CONCLUSION: 1. No opacity or infiltrate in the lateral right upper lung. 2. There are 3 pulmonary nodules measuring up to 7 mm in size, 2 in the right, one on the left. In accordance with Fleischner Society guidelines, recommend followup examination in 6 months. 3. Small area of consolidation or atelectasis lateral left costophrenic angle. Jasen Hardwick MD Chest X-Ray 05/04/17 0000 Signed Impressions: Service Date/Time: Thursday, May 04, 2017 10:19 - CONCLUSION: Nodular density overlying the lateral right upper lobe. Recommend CT chest for further evaluation Marcio Tijerina MD Neck CT 05/02/17 0000 Signed Impressions: Service Date/Time: Tuesday, May 02, 2017 17:54 - CONCLUSION: Some interval progression of disease up into the left parapharyngeal space since previous exam. Marcio Tijerina MD Objective Remarks GENERAL: This is a well-nourished, well-developed patient, in no apparent distress. CARDIOVASCULAR: Regular rate and regular rhythm without murmurs, gallops, or rubs. RESPIRATORY: Clear to auscultation. Breath sounds equal bilaterally. No wheezes , rales, or rhonchi. GASTROINTESTINAL: Abdomen soft, non-tender, nondistended. Normal, active bowel sounds MUSCULOSKELETAL: Extremities without clubbing, cyanosis, or edema. NEURO: Alert & Oriented x4 to person, place, time, situation. Moves all ext x4 Procedures none Medications and IVs Inpatient Medications Acetaminophen (Tylenol) 650 mg Q6H PRN PO FEVER/PAIN SCALE 1 TO 2; Start at 01:30 Acetaminophen/ Butalbital/ Caffeine (Fioricet 325-50-40) 1 tab Q6H PRN PO HEADACHE Last administered on 05/06/17 08:04; Start 05/01/17 at 20:00 Acetaminophen/ Hydrocodone Bitart ([place] 5-325 Mg) 1 tab Q4H PRN PO pain >5 Last administered on 05/06/17at 04:53; Start 05/01/17 at 01:30 Albuterol/ Ipratropium (Duoneb Neb) 1 ampule Q4HR NEB PRN NEB SOB/WHEEZING; Start 05/01/17 at 01:30 Alprazolam (Xanax) 2 mg Q8H PRN PO ANXIETY Last administered on 05/06/17at 04:53 ; Start 05/01/17 at 03:00 Aztreonam 1000 mg/ Sodium Chloride 100 ml @ 200 mls/hr Q8H IV Last administered on 05/06/17at 08:04; Start 05/01/17 at 09:00 Aztreonam 2000 mg/ Sodium Chloride 100 ml @ 200 mls/hr ONCE STAT IV Last administered on 05/01/17at 02:15; Start 05/01/17 at 01:05; Stop 05/01/17 at 01:34 ; Status DC Bisacodyl (Dulcolax Supp) 10 mg DAILY PRN RECTAL SEVERE CONSITIPATION; Start at 01:30 Dexamethasone Sodium Phosphate (Decadron Inj) 4 mg Q8HR IV PUSH Last administered on 05/06/17at 04:54; Start 05/01/17 at 06:00 Diphenhydramine HCl (Benadryl) 50 mg Q8H PRN G-TUBE allergies/ insomnia; Start 05/02/17 at 12:00 Enoxaparin Sodium (Lovenox Inj) 30 mg Q24H SQ Last administered on 05/05/17 12 :14; Start 05/02/17 at 12:00 Hyoscyamine Sulfate (Levsin) 0.25 mg Q4H PRN PO SECRETIONS Last administered on 05/03/17 09:58; Start 05/01/17 at 03:00 Lactulose (Lactulose Liq) 30 ml DAILY PRN PO SEVERE CONSITIPATION; Start at 01:30 Levofloxacin/ Dextrose 150 ml @ 100 mls/hr Q24H IV Last administered on 00:39; Start 05/01/17 at 23:00 Magnesium Hydroxide (Milk Of Magnesia Liq) 30 ml Q12H PRN PO Mild constipation ; Start 05/01/17 at 01:30 Montelukast Sodium (Singulair) 10 mg HS PO Last administered on 05/05/17 19:35 ; Start 05/01/17 at 21:00 Morphine Sulfate (Morphine Inj) 2 mg Q3H PRN IV PUSH breakthrough Last administered on 05/06/17 08:05; Start 05/01/17 at 01:30 Ondansetron HCl (Zofran Inj) 4 mg Q6H PRN IVP NAUSEA OR VOMITING Last administered on 05/06/17 02:38; Start 05/01/17 at 01:30 Senna/Docusate Sodium (Dali-Colace) 1 tab BID PO Last administered on 08:04; Start 05/01/17 at 09:00 Sennosides (Senokot) 17.2 mg Q12H PRN PO Moderate constipation; Start 05/01/17 at 01:30 Sodium Chloride (NS Flush) 2 ml BID IV FLUSH Last administered on 05/05/17at 08: 10; Start 05/01/17 at 09:00 Trazodone HCl (Desyrel) 50 mg ONCE ONCE PO Last administered on 05/01/17 03: 12; Start 05/01/17 at 03:00; Stop 05/01/17 at 03:06; Status DC A/P Problem List: (1) PNA (pneumonia) ICD Code: J18.9 - Pneumonia, unspecified organism (2) COPD (chronic obstructive pulmonary disease) ICD Code: J44.9 - Chronic obstructive pulmonary disease, unspecified (3) Hypoxia ICD Code: R09.02 - Hypoxemia Status: Acute (4) Laryngeal cancer ICD Code: C32.9 - Malignant neoplasm of larynx, unspecified Status: Acute Assessment and Plan Acute on chronic respiratory failure pulmonary nodule The pt has had a productive cough w/ brown colored sputum, CXR w/ subsegmental bibasilar airspace disease. Likely combination of PNA/COPD/Laryngeal CA w/ extension of malignancy.Pulmonology consult appreciated. - blood cultures negative and sputum culture with pseudomonas - switch to po levaquin upon discharge. - DuoNeb prn as needed. - trach care per pulmonology. - switch to po steroids upon discharge. -passed the walk test. -f/u with pulmonary as outpatient. - PT. - IS. Laryngeal cancer S/p radiation. - oncology consult appreciated. -f/u as outpatient. - treatment as above. Malnutrition The pt is on bolus feeding but also has PO intake. - continue bolus tube feeds with clear liquid diet. Anemia S/t cancer. Hgb is stable. - follow CBC as needed. Insomnia The pt requests Benadryl. - Benadryl as needed. DVT Prophylaxis: Lovenox, SCD/Teds Discharge Planning dc home today-when ok with case management. see med list. f/u; pcp,oncology and pulmonary. d/w the patient and RN. d/w and Oncology. Jeanne Parkinson MD May 06, 2017 08:32
[2017-05-06 09:57] VITALS: O2SAT 98
== END 2017-05-06 10:31 | disposition home health service (06) | DRG 193 ==
LOC: NEPE 00:14 → NEDA 01:18 → N07A 02:42
PROVIDERS: ADMIT Internal Medicine; ATTEND Internal Medicine
PROC: 3E0F7GC Introduction of Other Therapeutic Substance into Respiratory Tract, Via Natural or Artificial Opening (ICD-10-PCS; principal; 2017-05-01)
DX: J18.9 Pneumonia, unspecified organism (principal); J96.21 Acute and chronic respiratory failure with hypoxia; C79.89 Secondary malignant neoplasm of other specified sites; E46 Unspecified protein-calorie malnutrition; Z93.0 Tracheostomy status; J44.0 Chronic obstructive pulmonary disease with (acute) lower respiratory infection; C32.9 Malignant neoplasm of larynx, unspecified; D64.9 Anemia, unspecified; J98.11 Atelectasis; J44.1 Chronic obstructive pulmonary disease with (acute) exacerbation; I65.22 Occlusion and stenosis of left carotid artery; I10 Essential (primary) hypertension; Z93.1 Gastrostomy status; Z92.3 Personal history of irradiation; Z92.21 Personal history of antineoplastic chemotherapy; K76.9 Liver disease, unspecified; F41.9 Anxiety disorder, unspecified; G47.00 Insomnia, unspecified; Z87.891 Personal history of nicotine dependence; R91.1 Solitary pulmonary nodule
CPT/HCPCS: 70491; 71045; 71046; 71250; 80053; 81001; 83605; 83735; 85025; 87040; 87070; 87077; 87186; 87205; 94618; 96374; A7520; J1100; J1650; J1956; J2270; J2405; J7030; Q9967

== ENCOUNTER 2017-06-19 08:39 | Emergency (ER) | payer OTHER, MEDICAID ==
[~2017-06-19] VITALS: Ht 167.6 cm; Wt 45.0 kg
[~2017-06-19 08:39] MED LIST changes: -DOXY100C PO; -HYDR-3516 PO; +LEVA500T33 PO; +PRED5TAB PO; -TRAM50TA PO
[2017-06-19 08:42] VITALS: BP 144/73; PULSE 112; RESP 20; TEMP 98.5; O2SAT 94
--- NOTE | 2017-06-19 08:58 | PD ---
HPI Chief Complaint: Respiratory Symptoms Time Seen by Provider: 08:51 Travel History International Travel<30 days: No Contact w/Intl Traveler<30days: No Traveled to known affect area: No History of Present Illness HPI Patient is a 66-year-old female with history of stage IV laryngeal cancer, presents to emergency room with complaints of mucus plugging. Patient reports that this morning, she woke up feeling short of breath. Patient reports that she called EMS as she could not breathe, EMS arrived on scene and patient was able to cough up a large mucous plug out of her tracheostomy. Patient reports that she is feeling much better at this time, EMS did give her a breathing treatment on route to the emergency room. Patient reports that she is was being worked up for stage IV laryngeal cancer at [facility], for the past few weeks, she has been having on-and-off blood in her mucus. Patient reports that her workup that she ensure that she had issues with her carotid artery and her laryngeal cancer, reports that they can no longer help her and recommended hospice. Patient reports that she is currently receiving no treatment for her laryngeal cancer and will start home hospice on Tuesday. Patient at this time is alert and oriented 3, she does not want any interventions at this time, patient will accept an x-ray of the chest and request that her trach be suctioned. Patient with no fever or chills, no other complaints at this time. 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) Cardiovascular Problems: Yes Chemotherapy: Yes (hx of chemo x 1 month) COPD: Yes Diminished Hearing: No Genitourinary: No Hypertension: Yes Musculoskeletal: No Neurologic: No Psychiatric: Yes Reproductive: No Respiratory: Yes (TRACH IN PLACE) ?: Not Menopausal: Yes : 5 Para: 4 : 1 Past Surgical History Abdominal Surgery: Yes (PEG) Hysterectomy: No Tonsillectomy: Yes Other Surgery: Yes (Tracheotomy) Social History Alcohol Use: No Tobacco Use: No Substance Use: No Allergies-Medications (Allergen,Severity, Reaction): Coded Allergies: penicillin G (Unverified Allergy, Severe, HIVES, 06/19/17) cephalexin (Unverified Allergy, Intermediate, Rash, 06/19/17) Reported Meds & Prescriptions Reported Meds & Active Scripts Active Prednisone 5 Mg Tab 5 Mg PO DIRECTED 10 Days 40 mg po daily for two days then 30 mg po daily for two days then 20 mg po daily for two days then 10 mg po daily for two days then 5 mg po daily for two days then stop. Xanax (Alprazolam) 2 Mg Tab 2 Mg PO Q8H PRN Oxygen tank (Oxygen) 1 Ea Tank 2 Liter CAROL.CANULA CONTINUOUS Oxygen Concentrator Portable Gaseous 2 L/min via Nasal Cannula Continuous For 99 months Reported Albuterol Neb (Albuterol Sulfate) 2.5 Mg/0.5 Ml Neb 2.5 Mg NEB Q6HR NEB PRN Note: The Albuterol Sulfate Inhalation Solution is concentrated and must be diluted. Read complete instructions carefully before using. Review of Systems General / Constitutional: No: Fever Eyes: No: Visual changes HENT: No: Headaches Cardiovascular: No: Chest Pain or Discomfort Respiratory: Positive: Cough, Shortness of Breath Gastrointestinal: No: Abdominal Pain Genitourinary: No: Dysuria Musculoskeletal: No: Pain Skin: No Rash Neurologic: No: Weakness Psychiatric: No: Depression Endocrine: No: Polydipsia Hematologic/Lymphatic: No: Easy Bruising Physical Exam Narrative GENERAL: Moderate distress SKIN: Focused skin assessment warm/dry. HEAD: Atraumatic. Normocephalic. EYES: Pupils equal and round. No scleral icterus. No injection or drainage. ENT: No nasal bleeding or discharge. Mucous membranes pink and moist. NECK: Trachea midline. No JVD. Trach in place CARDIOVASCULAR: Tachycardia. No murmur appreciated. RESPIRATORY: No accessory muscle use. Clear to auscultation. Breath sounds equal bilaterally. GASTROINTESTINAL: Abdomen soft, non-tender, nondistended. Hepatic and splenic margins not palpable. MUSCULOSKELETAL: No obvious deformities. No clubbing. No cyanosis. No edema. NEUROLOGICAL: Awake and alert. No obvious cranial nerve deficits. Motor grossly within normal limits. Normal speech. PSYCHIATRIC: Appropriate mood and affect; insight and judgment normal. Data Data Last Documented VS Vital Signs Date Time Temp Pulse Resp B/P (MAP) Pulse Ox O2 Delivery O2 Flow Rate FiO2 06/19/17 10:38 109 18 144/73 (96) 98 Trach Collar 06/19/17 09:20 6.00 28 06/19/17 08:42 98.5 Orders Orders Ecg Monitoring (06/19/17 08:51) Oximetry (06/19/17 08:51) ^ Suction (06/19/17 08:51) Chest, Single Ap (06/19/17 09:58) Oxycodone-Acetamin 5-325 Mg (Percocet (06/19/17 10:30) MDM Medical Decision Making Medical Screen Exam Complete: Yes Emergency Medical Condition: Yes Medical Record Reviewed: Yes Interpretation(s) Vital Signs Date Time Temp Pulse Resp B/P (MAP) Pulse Ox O2 Delivery O2 Flow Rate FiO2 06/19/17 08:42 98.5 112 20 144/73 (96) 94 Differential Diagnosis Pneumonia, mucous plugging, COPD, laryngeal cancer Narrative Course 66-year-old female who presents the emergency room with shortness of breath due to mucus plugging. Patient was able to cough up thick mucous plug, reports that she is feeling much better at this time. Patient at this time requests only to be suctioned, she does not want an IV placed. Patient reports that she will be on home hospice on Tuesday, request only supportive care at this time. During the course of the patients emergency department visit, the patients history, examination, and differential diagnosis were reviewed with the patient. The patient was placed on a pit worker power shovel with oximetry and frequent blood pressure monitoring. The patient had refuses IV access at this time and request supportive care. Vital Signs Date Time Temp Pulse Resp B/P (MAP) Pulse Ox O2 Delivery O2 Flow Rate FiO2 06/19/17 10:38 109 18 144/73 (96) 98 Trach Collar 06/19/17 08:59 114 18 133/65 (87) 95 Room Air 06/19/17 08:42 98.5 112 20 144/73 (96) 94 Patient was suctioned, patient feeling much better after she was suctioned. Last Impressions Chest X-Ray 06/19/17 0958 Signed Impressions: Service Date/Time: Monday, June 19, 2017 10:10 - CONCLUSION: The lungs are hyperinflated but clear. Likely reflective of emphysematous change.. Kylie Fish MD X-ray of the chest with no evidence of pneumonia, patient request hospice nurse for home evaluation 11am: Hospice nurse at bedside Patient will start home hospice today, patient stable for discharge Diagnosis Primary Impression: Mucus plugging of bronchi Additional Impressions: Hospice program care Hospice care Patient Instructions: General Instructions Additional Instructions: Please follow up with your primary care doctor in 2-3 days Return to the ER if symptoms worsen or progress Return to the ER as needed Disposition: 51 HOSPICE/MED FACILITY Nathalia Corrigan DO Jun 19, 2017 08:58
[2017-06-19 08:59] VITALS: BP 133/65; PULSE 114; RESP 18; O2SAT 95
[2017-06-19 09:20] VITALS: O2SAT 97
[2017-06-19] MEDS ORDERED: oxyCODONE/ACETAMINOPHEN 5 MG/325 MG TAB PO ONE (10:30)
--- NOTE | 2017-06-19 10:31 | RADRPT ---
EXAM DATE/TIME: 06/19/2017 10:10 [place] COMPARISON: CHEST SINGLE AP, May 01, 2017, 0:46. INDICATIONS : Short of breath. MEDICAL HISTORY : Hypertension. Chronic obstructive pulmonary disease. Asthma. Larynx cancer (squamous cell). SURGICAL HISTORY : Tracheotomy. ENCOUNTER: Initial ACUITY: 1 day PAIN SCORE: 0/10 LOCATION: Bilateral chest FINDINGS: There is a tracheostomy tube present with the tip overlying the distal clavicles. Central line termin ating over the mid SVC. The lungs are well inflated and clear. Heart size is normal. Pulmonary suture s normal. Osseous structures are unremarkable. CONCLUSION: The lungs are hyperinflated but clear. Likely reflective of emphysematous change.. Kylie Fish MD on June 19, 2017 at 10:28 Board Certified Radiologist. This report was verified electronically.
[2017-06-19 10:38] VITALS: BP 144/73; PULSE 109; RESP 18; O2SAT 98
[2017-06-19 11:41] VITALS: RESP 18
== END 2017-06-19 12:26 | disposition hospice, inpatient (51) ==
LOC: PHED 08:39
DX: T17.590A Other foreign object in bronchus causing asphyxiation, initial encounter (principal); R06.02 Shortness of breath; R00.0 Tachycardia, unspecified; C32.9 Malignant neoplasm of larynx, unspecified; J45.909 Unspecified asthma, uncomplicated; F41.9 Anxiety disorder, unspecified; J44.9 Chronic obstructive pulmonary disease, unspecified; I10 Essential (primary) hypertension; Z93.0 Tracheostomy status
CPT/HCPCS: 71045; 99283

== ENCOUNTER 2017-06-24 09:05 | Inpatient (IN) | payer OTHER, MEDICAID, MEDICARE ==
[~2017-06-24] VITALS: Ht 160 cm; Wt 45.1 kg
[2017-06-24] VITALS (7 sets, daily range): BP systolic 107–176; BP diastolic 59–86; PULSE 97–140; RESP 18–24; TEMP 98.1–103; O2SAT 90–98
[~2017-06-24 09:05] MED LIST changes: -BUTA1CAP PO; -Free Water PEG; -IPRASOL INH; -LEVA500T33 PO; -LEVS0.123 PO; -MONT10TA2 PO; -ONDA4TAB7 SL; -PERC5TAB12 PO; -TRAZ50TA12 PO; -WALKER WHEELS/F1 MIS
[2017-06-24] MEDS ORDERED: MORPHINE SULFATE 8 MG/ML INJ IV PUSH ONE (09:30)
[2017-06-24] MEDS ORDERED: LORazepam 2 MG/ML VIAL IV PUSH ONE (09:30)
[2017-06-24] MEDS ORDERED: SODIUM CHLOR 0.9% 1000 ML INJ 1,000 ML IV SCH (09:30)
[2017-06-24 09:58] LABS: BASOPHIL % 0.2 % (0.0-2.0); HEMATOCRIT 30.7 % (35.0-46.0); HEMOGLOBIN 10.2 GM/DL (11.6-15.3); LYMPH % 1.7 % (9.0-44.0); LYMPHOCYTE # 0.2 TH/MM3 (1.0-4.8); MEAN CELL VOLUME 88.1 FL (80.0-100.0); MEAN CORPUSCULAR HEMOGLOBIN 29.1 PG (27.0-34.0); MEAN CORPUSCULAR HGB CONC 33.1 % (32.0-36.0); MEAN PLATELET VOLUME 8.4 FL (7.0-11.0); MONO % 6.8 % (0.0-8.0); NEUT % 91.3 % (16.0-70.0); PLATELET COUNT 471 TH/MM3 (150-450); RED BLOOD COUNT 3.49 MIL/MM3 (4.00-5.30); RED CELL DISTRIBUTION WIDTH 14.8 % (11.6-17.2); WHITE BLOOD COUNT 14.3 TH/MM3 (4.0-11.0)
--- NOTE | 2017-06-24 10:05 | PD ---
HPI Chief Complaint: Respiratory Symptoms Time Seen by Provider: 09:20 Travel History International Travel<30 days: No Contact w/Intl Traveler<30days: No Traveled to known affect area: No History of Present Illness HPI This is a 66-year-old female with a history of COPD and head and neck cancer, who presents today with shortness of breath and weakness. Patient also has a fever at home. The patient is nonverbal. History was obtained through the EMS staff. There is no reported nausea vomiting. There is no reported diarrhea. EMS reports that they tried to suction her trach however were unable to obtain any sputum. 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) Cardiovascular Problems: Yes Chemotherapy: Yes (hx of chemo x 1 month) COPD: Yes Diminished Hearing: No Gastrointestinal Disorders: No Genitourinary: No Hypertension: Yes Musculoskeletal: No Neurologic: No Psychiatric: Yes Reproductive: No Respiratory: Yes (TRACH IN PLACE) ?: Not Menopausal: Yes : 5 Para: 4 : 1 Past Surgical History Abdominal Surgery: Yes (PEG) Hysterectomy: No Tonsillectomy: Yes Other Surgery: Yes (Tracheotomy) Social History Alcohol Use: No Tobacco Use: No Substance Use: No Allergies-Medications (Allergen,Severity, Reaction): Coded Allergies: penicillin G (Unverified Allergy, Severe, HIVES, 06/19/17) cephalexin (Unverified Allergy, Intermediate, Rash, 06/19/17) Reported Meds & Prescriptions Reported Meds & Active Scripts Active Prednisone 5 Mg Tab 5 Mg PO DIRECTED 10 Days 40 mg po daily for two days then 30 mg po daily for two days then 20 mg po daily for two days then 10 mg po daily for two days then 5 mg po daily for two days then stop. Xanax (Alprazolam) 2 Mg Tab 2 Mg PO Q8H PRN Oxygen tank (Oxygen) 1 Ea Tank 2 Liter CAROL.CANULA CONTINUOUS Oxygen Concentrator Portable Gaseous 2 L/min via Nasal Cannula Continuous For 99 months Reported Methadone Liq (Methadone HCl) 2 Mg/Ml Liqd 5 Mg PO Q8HR Senna-Plus (Sennosides-Docusate Sodium) 8.6-50 Mg Tab 2 Tab PO DAILY Oxycodone (Oxycodone HCl) 5 Mg Cap 5 Mg PO Q4H PRN Gabapentin 300 Mg Cap 300 Mg PO BID Trazodone (Trazodone HCl) 50 Mg Tab 50 Mg PO HS Albuterol Neb (Albuterol Sulfate) 2.5 Mg/0.5 Ml Neb 2.5 Mg NEB Q6HR NEB PRN Note: The Albuterol Sulfate Inhalation Solution is concentrated and must be diluted. Read complete instructions carefully before using. Review of Systems ROS Limitations: Other: (Patient nonverbal review of systems obtained through EMS and patient shaking yes or no) Except as stated in HPI: all other systems reviewed are Neg General / Constitutional: Positive: Fever, Chills HENT: Positive: Headaches, No: Neck Pain Cardiovascular: No: Chest Pain or Discomfort, Palpitations Respiratory: Positive: Cough, Shortness of Breath Gastrointestinal: No: Nausea, Vomiting, Diarrhea, Abdominal Pain Genitourinary: No: Dysuria, Decreased Urinary Output Musculoskeletal: Positive: Weakness, No: Pain Neurologic: Positive: Weakness, Headache Physical Exam Narrative GENERAL: Ill-appearing female in moderate respiratory distress SKIN: Focused skin assessment warm/dry. HEAD: Atraumatic. Normocephalic. EYES: No scleral icterus. No injection or drainage. ENT: No nasal bleeding or discharge. Mucous membranes pink and dry. NECK: Trachea midline. Tracheostomy in place. No drainage around the tracheostomy site. CARDIOVASCULAR: Sinus tach with a rate in 130s, 140s.. No murmur appreciated. RESPIRATORY: Coarse rhonchi bilaterally. Fine rales heard at the bilateral bases. GASTROINTESTINAL: Abdomen soft, non-tender, nondistended. PEG tube in place. MUSCULOSKELETAL: No obvious deformities. No clubbing. No cyanosis. No edema. NEUROLOGICAL: Awake and alert. Nonverbal secondary to her tracheostomy. No obvious cranial nerve deficits. Motor grossly within normal limits. Normal speech. Data Data Last Documented VS Vital Signs Date Time Temp Pulse Resp B/P (MAP) Pulse Ox O2 Delivery O2 Flow Rate FiO2 06/24/17 10:10 130 24 154/68 (96) 98 Trach Collar 06/24/17 09:30 6.00 70 06/24/17 09:09 103.0 Orders Orders Resp Request For Service (06/24/17 09:21) Complete Blood Count With Diff (06/24/17 09:21) Comprehensive Metabolic Panel (06/24/17 09:21) Ckmb (Isoenzyme) Profile (06/24/17:) Troponin I (06/24/17 09:21) Blood Culture (06/24/17:) Urinalysis - C+S If Indicated (06/24/17:) Sputum Culture And Gram Stain (06/24/17:) Chest, Single Ap (06/24/17:21) Iv Access Insert/Monitor (06/24/17:) Ecg Monitoring (06/24/17:) Oximetry (06/24/17:) Lactic Acid Sepsis Protocol (06/24/17:) Sodium Chlor 0.9% 1000 Ml Inj (Ns 1000 M (06/24/17:30) Lorazepam Inj (Ativan Inj) (06/24/17:30) Morphine Inj (Morphine Inj) (06/24/17:30) Acetaminophen 650 Mg/20 Ml Liq (Tylenol (06/24/17 10:15) Electrocardiogram (06/24/17 09:14) Admit Order (Ed Use Only) (06/24/17 11:38) Labs Laboratory Tests Test 06/24/17 09:25 White Blood Count 14.3 TH/MM3 Red Blood Count 3.49 MIL/MM3 Hemoglobin 10.2 GM/DL Hematocrit 30.7 % Mean Corpuscular Volume 88.1 FL Mean Corpuscular Hemoglobin 29.1 PG Mean Corpuscular Hemoglobin Concent 33.1 % Red Cell Distribution Width 14.8 % Platelet Count 471 TH/MM3 Mean Platelet Volume 8.4 FL Neutrophils (%) (Auto) 91.3 % Lymphocytes (%) (Auto) 1.7 % Monocytes (%) (Auto) 6.8 % Eosinophils (%) (Auto) 0.0 % Basophils (%) (Auto) 0.2 % Neutrophils # (Auto) 13.0 TH/MM3 Lymphocytes # (Auto) 0.2 TH/MM3 Monocytes # (Auto) 1.0 TH/MM3 Eosinophils # (Auto) 0.0 TH/MM3 Basophils # (Auto) 0.0 TH/MM3 CBC Comment DIFF FINAL Differential Comment Blood Urea Nitrogen 12 MG/DL Creatinine 0.63 MG/DL Random Glucose 106 MG/DL Total Protein 7.2 GM/DL Albumin 2.4 GM/DL Calcium Level 8.6 MG/DL Alkaline Phosphatase 126 U/L Aspartate Amino Transf (AST/SGOT) 32 U/L Alanine Aminotransferase (ALT/SGPT) 62 U/L Total Bilirubin 0.3 MG/DL Sodium Level 138 MEQ/L Potassium Level 3.9 MEQ/L Chloride Level 101 MEQ/L Carbon Dioxide Level 30.4 MEQ/L Anion Gap 7 MEQ/L Estimat Glomerular Filtration Rate 95 ML/MIN Lactic Acid Level 1.0 mmol/L Total Creatine Kinase 32 U/L Troponin I LESS THAN 0.02 NG/ML MDM Medical Decision Making Medical Screen Exam Complete: Yes Emergency Medical Condition: Yes Differential Diagnosis Pneumonia versus bronchitis versus dehydration versus metabolic derangement. Narrative Course [id number] female with unfortunate history of throat cancer, COPD. Patient presents today with fever and shortness of breath. Patient has diffuse rales on exam. She was tachycardic in the 140s when she initially arrived. The patient is currently in hospice treatment. The patient will be treated for pneumonia. The patient was [facility] Looking through her records she has had Aspergillus in her sputum previously. Dr. Borja stated he would start the antibiotics of choice. Diagnosis Primary Impression: PNA (pneumonia) Qualified Codes: J18.9 - Pneumonia, unspecified organism Additional Impressions: Acute exacerbation of chronic obstructive pulmonary disease (COPD) Laryngeal cancer Admitting Information Admitting Physician Requests: Admit Jayjay Genao MD Jun 24, 2017 10:05
--- NOTE | 2017-06-24 10:12 | RADRPT ---
EXAM DATE/TIME: 06/24/2017 09:31 [facility] COMPARISON: CHEST SINGLE AP, June 19, 2017, 10:10. INDICATIONS : Fever. MEDICAL HISTORY : Hypertension. Chronic obstructive pulmonary disease. Asthma. Larynx SURGICAL HISTORY : None. Tracheostomy ENCOUNTER: Initial ACUITY: 1 day PAIN SCORE: 3/10 LOCATION: Bilateral chest FINDINGS: Increasing bronchial thickening with minimal airspace disease at both spaces.. Trach tube in good po sition. The cardiomediastinal contours are unremarkable. Osseous structures are intact. CONCLUSION: Increasing peribronchial thickening. Oscar Goncalves MD FACR on June 24, 2017 at 10:09 Board Certified Radiologist. This report was verified electronically.
[2017-06-24] MEDS ORDERED: ACETAMINOPHEN 650 MG/20.3 ML UDC PEG ONE (10:15)
[2017-06-24 10:17] LABS: ALKALINE PHOSPHATASE 126 U/L (45-117); TOTAL BILIRUBIN ADULT 0.3 MG/DL (0.2-1.0); TOTAL PROTEIN 7.2 GM/DL (6.4-8.2); TROPONIN I LESS THAN 0.02 NG/ML (0.02-0.05)
[2017-06-24 10:27] LABS: ALBUMIN 2.4 GM/DL (3.4-5.0); ALT (GPT) 62 U/L (10-53); AST (GOT) 32 U/L (15-37); BICARBONATE 30.4 MEQ/L (21.0-32.0); BLOOD UREA NITROGEN 12 MG/DL (7-18); CALCIUM 8.6 MG/DL (8.5-10.1); CHLORIDE 101 MEQ/L (98-107); CREATININE 0.63 MG/DL (0.50-1.00); GLOMERULAR FILTRATION RATE 95 ML/MIN (>89); GLUCOSE,RANDOM 106 MG/DL (74-106); SODIUM (NA) 138 MEQ/L (136-145)
[2017-06-24] MEDS ORDERED: TRAZ50TA12 PO (10:45)
[2017-06-24] MEDS ORDERED: OXYC1CAP PO (10:45)
[2017-06-24] MEDS ORDERED: SENN1TAB PO (10:45)
[2017-06-24] MEDS ORDERED: GABA300C5 PO (10:45)
[2017-06-24] MEDS ORDERED: METH10SO PO (11:01)
[2017-06-24] MEDS ORDERED: Vancomycin Consult Pharmacy 1 EA OTHER SCH (12:00)
[2017-06-24] MEDS ORDERED: VANCOMYCIN INJ 1,000 MG in SODIUM CHLOR 0.9% 250 ML INJ 250 ML IV ONE (12:00)
[2017-06-24] MEDS ORDERED: SODIUM CHLOR 0.9% 1000 ML INJ 1,000 ML IV ONE (12:00)
[2017-06-24] MEDS ORDERED: RESP: ALBUTEROL 2.5 MG/IPRATROPIUM 0.5 MG NEB (PRN) NEB (12:00)
--- NOTE | 2017-06-24 12:01 | HHI.HP ---
[facility] Unknown Admission Diagnosis pneumonia, copd, head and neck cancer Diagnoses: (1) PNA (pneumonia) Diagnosis: Principal Chief Complaint: fever Travel History International Travel<30 Days: No Contact w/Intl Traveler <30 Da: No Traveled to Known Affected Are: No History of Present Illness patient is a 66 y/o female with history of COPD, laryngeal cancer-s/p tracheostomy- on Hospice, presented to ER with fever. she says that the past few days she had some fever and chills along with increased secretions. she's being followed up by hospice. she says that her son noticed that she had a high fever earlier today which made him call the ambulance. at the time of my evaluation she was in no acute distress with no pain-however she had a high fever at the time of presentation. Review of Systems Constitutional: COMPLAINS OF: Fever, Chills, DENIES: Weight loss, Night Sweats Eyes: DENIES: Blurred vision, Diplopia, Vision loss, Double Vision Ears, nose, mouth, throat: DENIES: Tinnitus, Vertigo, Throat pain, Epistaxis Respiratory: DENIES: Apneas, Cough, Snoring, Wheezing, Hemoptysis, Sputum production, Shortness of breath Cardiovascular: DENIES: Chest pain, Palpitations, Syncope, Dyspnea on Exertion , PND, Lower Extremity Edema, Orthopnea, Claudication Gastrointestinal: DENIES: Abdominal pain, Black stools, Bloody stools, Constipation, Diarrhea, Nausea, Vomiting, Difficulty Swallowing, Anorexia Genitourinary: DENIES: Urinary frequency, Urgency, Hematuria, Dysuria Musculoskeletal: DENIES: Joint pain, Muscle aches, Stiffness, Joint Swelling Integumentary: DENIES: Rash Neurologic: DENIES: Abnormal gait, Headache, Localized weakness, Paresthesias, Seizures, Speech Problems, Tremor, Poor Balance Psychiatric: DENIES: Anxiety, Confusion, Mood changes, Depression, Hallucinations, Agitation, Suicidal Ideation, Homicidal Ideation, Delusions Past Family Social History Past Medical History COPD/ laryngeal cancer. Past Surgical History tracheostomy/ PEG placement Reported Medications Prednisone 5 Mg Tab 5 Mg PO DIRECTED 10 Days 40 mg po daily for two days then 30 mg po daily for two days then 20 mg po daily for two days then 10 mg po daily for two days then 5 mg po daily for two days then stop. Xanax (Alprazolam) 2 Mg Tab 2 Mg PO Q8H PRN Oxygen tank (Oxygen) 1 Ea Tank 2 Liter CAROL.CANULA CONTINUOUS Oxygen Concentrator Portable Gaseous 2 L/min via Nasal Cannula Continuous For 99 months Reported Albuterol Neb (Albuterol Sulfate) 2.5 Mg/0.5 Ml Neb 2.5 Mg NEB Q6HR NEB PRN Note: The Albuterol Sulfate Inhalation Solution is concentrated and must be diluted. Read complete instructions carefully before using. Allergies: Coded Allergies: penicillin G (Unverified Allergy, Severe, HIVES, 06/19/17) cephalexin (Unverified Allergy, Intermediate, Rash, 06/19/17) Active Ordered Medications Inpatient Medications Acetaminophen (Tylenol 650 Mg/ 20 ml Liq) 975 mg ONCE ONCE PEG Last administered on 06/24/17at 10:54; Start 06/24/17 at 10:15; Stop 06/24/17 at 10:16 ; Status DC Lorazepam (Ativan Inj) 1 mg ONCE ONCE IV PUSH Last administered on 06/24/17 09:36; Start 06/24/17 at 09:30; Stop 06/24/17 at 09:31; Status DC Morphine Sulfate (Morphine Inj) 5 mg ONCE ONCE IV PUSH Last administered on at 09:36; Start 06/24/17 at 09:30; Stop 06/24/17 at 09:31; Status DC Sodium Chloride 1,000 ml @ 125 mls/hr Q8H IV Last administered on 06/24/17at 09 :37; Start 06/24/17 at 09:30 Social History no smoking or drinking. Physical Exam Vital Signs Vital Signs Date Time Temp Pulse Resp B/P (MAP) Pulse Ox O2 Delivery O2 Flow Rate FiO2 06/24/17 10:10 130 24 154/68 (96) 98 Trach Collar 06/24/17 09:30 98 Trach Collar 6.00 70 06/24/17 09:15 136 24 96 Trach Collar 4.00 06/24/17 09:09 103.0 140 24 176/86 (116) 90 Physical Exam GENERAL: cachectic, in no apparent distress. SKIN: No rashes, ecchymoses or lesions. Cool and dry. HEAD: Atraumatic. Normocephalic. No temporal or scalp tenderness. EYES: Pupils equal round and reactive. Extraocular motions intact. No scleral icterus. No injection or drainage. ENT: Nose without bleeding, purulent drainage or septal hematoma. Throat without erythema, tonsillar hypertrophy or exudate. Uvula midline. Airway patent. NECK: tracheostomy in place. CARDIOVASCULAR: Regular rate and rhythm without murmurs, gallops, or rubs. RESPIRATORY:bilateral rales noted. GASTROINTESTINAL: Abdomen soft, non-tender, nondistended. No hepato-splenomegaly , or palpable masses. No guarding. MUSCULOSKELETAL: Extremities without clubbing, cyanosis, or edema. No joint tenderness, effusion, or edema noted. No calf tenderness. Negative Homans sign bilaterally. NEUROLOGICAL: Awake and alert. Cranial nerves II through XII intact. Motor and sensory grossly within normal limits. Five out of 5 muscle strength in all muscle groups. Normal speech. Laboratory Laboratory Tests Test 06/24/17 09:25 White Blood Count 14.3 Red Blood Count 3.49 Hemoglobin 10.2 Hematocrit 30.7 Mean Corpuscular Volume 88.1 Mean Corpuscular Hemoglobin 29.1 Mean Corpuscular Hemoglobin Concent 33.1 Red Cell Distribution Width 14.8 Platelet Count 471 Mean Platelet Volume 8.4 Neutrophils (%) (Auto) 91.3 Lymphocytes (%) (Auto) 1.7 Monocytes (%) (Auto) 6.8 Eosinophils (%) (Auto) 0.0 Basophils (%) (Auto) 0.2 Neutrophils # (Auto) 13.0 Lymphocytes # (Auto) 0.2 Monocytes # (Auto) 1.0 Eosinophils # (Auto) 0.0 Basophils # (Auto) 0.0 CBC Comment DIFF FINAL Differential Comment Blood Urea Nitrogen 12 Creatinine 0.63 Random Glucose 106 Total Protein 7.2 Albumin 2.4 Calcium Level 8.6 Alkaline Phosphatase 126 Aspartate Amino Transf (AST/SGOT) 32 Alanine Aminotransferase (ALT/SGPT) 62 Total Bilirubin 0.3 Sodium Level 138 Potassium Level 3.9 Chloride Level 101 Carbon Dioxide Level 30.4 Anion Gap 7 Estimat Glomerular Filtration Rate 95 Lactic Acid Level 1.0 Total Creatine Kinase 32 Troponin I LESS THAN 0.02 Date/Time Source Procedure Growth Status 06/24/17 09:30 Blood Peripheral Aerobic Blood Culture Pending Received 06/24/17 09:30 Blood Peripheral Anaerobic Blood Culture Pending Received 06/24/17 09:55 Sputum Oral Tracheal Aspirate Gram Stain Pending Received 06/24/17 09:55 Sputum Oral Tracheal Aspirate Sputum Culture Pending Received Result Diagram: 06/24/1792406/24/17924 Imaging Last Impressions Chest X-Ray 06/24/17920 Signed Impressions: Service Date/Time: Saturday, June 24, 2017 09:31 - CONCLUSION: Increasing peribronchial thickening. Oscar Goncalves MD FACR Caprini VTE Risk Assessment Caprini VTE Risk Assessment: Mod/High Risk (score >= 2) Caprini Risk Assessment Model Point Value = 1 Point Value = 2 Point Value = 3 Point Value = 5 Age 41-60 Minor surgery BMI > 25 kg/m2 Swollen legs Varicose veins or History of unexplained or recurrent spontaneous Oral contraceptives or hormone replacement Sepsis (< 1 month) Serious lung disease, including pneumonia (< 1 month) Abnormal pulmonary function Acute myocardial infarction Congestive heart failure (< 1 month) History of inflammatory bowel disease Medical patient at bed rest Age 61-74 Arthroscopic surgery Major open surgery (> 45 min) Laparoscopic surgery (> 45 min) Malignancy Confined to bed (> 72 hours) Immobilizing plaster cast Central venous access Age >= 75 History of VTE Family history of VTE Factor V Leiden Prothrombin [id number] Lupus anticoagulant Anticardiolipin antibodies Elevated serum homocysteine Heparin-induced thrombocytopenia Other congenital or acquired thrombophilia Stroke (< 1 month) Elective arthroplasty Hip, pelvis, or leg fracture Acute spinal cord injury (< 1 month) Prophylaxis Regimen Total Risk Factor Score Risk Level Prophylaxis Regimen 0-1 Low Early ambulation 2 Moderate Order ONE of the following: *Sequential Compression Device (SCD) *Heparin 5000 units SQ BID 3-4 Higher Order ONE of the following medications: *Heparin 5000 units SQ TID *Enoxaparin/Lovenox 40 mg SQ daily (WT < 150 kg, CrCl > 30 mL/min) *Enoxaparin/Lovenox 30 mg SQ daily (WT < 150 kg, CrCl > 10-29 mL/min) *Enoxaparin/Lovenox 30 mg SQ BID (WT < 150 kg, CrCl > 30 mL/min) AND/OR *Sequential Compression Device (SCD) 5 or more Highest Order ONE of the following medications: *Heparin 5000 units SQ TID (Preferred with Epidurals) *Enoxaparin/Lovenox 40 mg SQ daily (WT < 150 kg, CrCl > 30 mL/min) *Enoxaparin/Lovenox 30 mg SQ daily (WT < 150 kg, CrCl > 10-29 mL/min) *Enoxaparin/Lovenox 30 mg SQ BID (WT < 150 kg, CrCl > 30 mL/min) AND *Sequential Compression Device (SCD) Assessment and Plan Assessment and Plan A/P - sepsis due to pneumonia with history of COPD will start on empiric antibiotics- of note she had pseudomonas in her sputum culture a couple of months ago- will deescalate the antibiotic regimen pending the clinical course and cultures. keep on oxygen to keep O2 sat > 90%- neb treatment. -history of Laryngeal cancer- s/p tracheostomy and PEG placement- being followed up by Hospice. -DVT prophylaxis with subq Lovenox. Discussed Condition With ER physician and the patient. Physician Certification 2 Midnight Certification Type: Admission for Inpatient Services Order for Inpatient Services The services are ordered in accordance with Medicare regulations or non- Medicare payer requirements, as applicable. In the case of services not specified as inpatient-only, they are appropriately provided as inpatient services in accordance with the 2-midnight benchmark. Estimated LOS (days): 2 days is the estimated time the patient will need to remain in the hospital, assuming treatment plan goals are met and no additional complications. Post-Hospital Plan: Hospice Problem Qualifiers (1) PNA (pneumonia): Qualified Codes: J18.9 - Pneumonia, unspecified organism Jeanne Parkinson MD Jun 24, 2017 12:01
[2017-06-24] MEDS: LEVOFLOXACIN 750 MG PREMIX INJ 150 ML IV SCH (12:27)
[2017-06-24] MEDS ORDERED: VANCOMYCIN INJ 900 MG in SODIUM CHLOR 0.9% 250 ML INJ 250 ML IV ONE (14:00)
[2017-06-24] MEDS: METHADONE HCL 10 MG TAB PO SCH ×2 (14:03→21:20)
[2017-06-24] MEDS: AZTREONAM INJ 2,000 MG in SODIUM CHLORIDE 0.9% INJ 100 ML IV SCH ×2 (14:04→22:29)
[2017-06-24] MEDS: VANCOMYCIN INJ 750 MG in SODIUM CHLOR 0.9% 250 ML INJ 250 ML IV SCH (15:40)
[2017-06-24] MEDS: ALPRAZolam 1 MG TAB PO PRN ×2 (15:46→21:20)
--- NOTE | 2017-06-24 19:51 | EKG ---
Date Performed: 06/24/2017 Time Performed: 09:14:38 PTAGE: 66 years EKG: SINUS TACHYCARDIA WITH SHORT TX INTERVAL, POSSIBLE ATRIAL FLUTTER ABNORMAL RHYTHM ECG Since the PREVIOUS TRACING , no significant change noted PREVIOUS TRACINGL: 04/11/2017 @ 1832 DOCTOR: Bennie Watkins Interpretating Date/Time 06/24/2017 19:50:01
[2017-06-24] MEDS: GABAPENTIN 300 MG CAP PO SCH (21:19)
[2017-06-24] MEDS: traZODone HCL 50 MG TAB PO SCH (21:20)
[2017-06-24 22:39] LABS: BILIRUBIN, URINE NEG (NEG); BLOOD, URINE NEG (NEG); GLUCOSE,URINE NEG (NEG); KETONE, URINE NEG (NEG); NITRITE,URINE NEG (NEG); PH, URINE 7.5 (5.0-8.5); SQUAMOUS EPITHELIAL CELL URINE <1 /hpf (0-5); URINE COLOR LIGHT-YELLOW (YELLW/STRAW); URINE LEUKOCYTE ESTERASE TRACE (NEG)
[2017-06-24] MEDS ORDERED: JEVILIQ12 PEG (23:01)
[2017-06-25] VITALS (15 sets, daily range): BP systolic 103–162; BP diastolic 60–81; PULSE 76–110; RESP 16–20; TEMP 97.8–99.4; O2SAT 92–100
[2017-06-25] MEDS ORDERED: MORPHINE SULFATE 4 MG/ML INJ IV PUSH ONE (02:30)
[2017-06-25] MEDS: VANCOMYCIN INJ 750 MG in SODIUM CHLOR 0.9% 250 ML INJ 250 ML IV SCH ×2 (02:46→15:00)
[2017-06-25 04:18] LABS: AUTOMATED NEUTROPHIL # 8.4 TH/MM3 (1.8-7.7); BASOPHIL # 0.1 TH/MM3 (0-0.2); BASOPHIL % 0.6 % (0.0-2.0); EOSINOPHIL # 0.1 TH/MM3 (0-0.4); HEMATOCRIT 24.6 % (35.0-46.0); HEMOGLOBIN 8.4 GM/DL (11.6-15.3); LYMPH % 6.3 % (9.0-44.0); LYMPHOCYTE # 0.6 TH/MM3 (1.0-4.8); MEAN CELL VOLUME 88.4 FL (80.0-100.0); MEAN CORPUSCULAR HGB CONC 33.9 % (32.0-36.0); MEAN PLATELET VOLUME 8.2 FL (7.0-11.0); MONO % 10.2 % (0.0-8.0); NEUT % 81.9 % (16.0-70.0); PLATELET COUNT 375 TH/MM3 (150-450); RED BLOOD COUNT 2.79 MIL/MM3 (4.00-5.30); RED CELL DISTRIBUTION WIDTH 14.8 % (11.6-17.2); WHITE BLOOD COUNT 10.2 TH/MM3 (4.0-11.0)
[2017-06-25] MEDS: METHADONE HCL 10 MG TAB PO SCH ×3 (05:06→21:19)
[2017-06-25] MEDS: AZTREONAM INJ 2,000 MG in SODIUM CHLORIDE 0.9% INJ 100 ML IV SCH ×3 (06:48→22:22)
[2017-06-25] MEDS: ALPRAZolam 1 MG TAB PO PRN ×3 (06:51→22:21)
[2017-06-25] MEDS: ENOXAPARIN SODIUM 40 MG/0.4 ML SYRINGE SQ SCH (09:00)
[2017-06-25] MEDS: GABAPENTIN 300 MG CAP PO SCH ×2 (09:42→21:18)
[2017-06-25] MEDS: ACETAMINOPHEN 325 MG TAB PEG PRN (10:07)
[2017-06-25] MEDS: LEVOFLOXACIN 750 MG PREMIX INJ 150 ML IV SCH (12:43)
--- NOTE | 2017-06-25 14:20 | HHI.PR ---
Subjective Remarks awake and alert, communicate with writing- insisting on going home temp- down denies any pain trach capped Objective Vitals Vital Signs Date Time Temp Pulse Resp B/P (MAP) Pulse Ox O2 Delivery O2 Flow Rate FiO2 06/25/17 12:09 97.8 76 16 103/60 (74) 96 06/25/17 10:21 99 Trach Collar 5.00 50 06/25/17 09:40 98.7 102 18 140/67 (91) 100 06/25/17 04:00 88 06/25/17 04:00 99.3 93 18 162/81 (108) 96 06/25/17 01:40 99 Trach Collar 70 06/25/17 01:35 99.4 106 20 147/71 (96) 95 06/25/17 01:16 06/25/17 01:08 100 18 110/60 (77) 92 T-piece 4.00 06/24/17 22:36 94 Trach Collar 6.00 70 06/24/17 22:21 101 18 107/67 (80) 94 Blow-by 50 06/24/17 20:07 98.1 110 20 124/59 (80) 92 Blow-by 60 06/24/17 18:47 17 I/O 06/24/17 06/24/17 06/24/17 06/25/17 06/25/17 06/25/17 07:00 15:00 23:00 07:00 15:00 23:00 Intake Total 625 ml 320 ml Output Total 230 ml Balance 625 ml -230 ml 320 ml Intake IV Total 625 ml Tube Feeding 240 ml Other 80 ml Output Urine Total 230 ml # Voids 1 2 Result Diagram: 06/25/17 0330 06/24/17 09 Imaging Last Impressions Chest X-Ray 06/24/17920 Signed Impressions: Service Date/Time: Saturday, June 24, 2017 09:31 - CONCLUSION: Increasing peribronchial thickening. Oscar Goncalves MD FACR Objective Remarks awake and alert. trach- good sats no rales, no wheezes regular rhythm abdomen- soft +PEG in place, no sing s of infection extremities no edmea up and ambulating A/P Problem List: (1) PNA (pneumonia) ICD Code: J18.9 - Pneumonia, unspecified organism Assessment and Plan 66 years old female sepsis due to pneumonia with history of COPD - T down- clinically looks well will start on empiric antibiotics- of note she had pseudomonas in her sputum culture a couple of months ago- will deescalate the antibiotic regimen pending the clinical course and cultures. keep on oxygen to keep O2 sat > 90%- neb treatment. -history of Laryngeal cancer- s/p tracheostomy and PEG placement- being followed up by Hospice. - per patient- she has humidified oxygen and suction machine at home -DVT prophylaxis with subq Lovenox. ideally would like her to be afebrile for 48 hours before DC daughter coming in today- will d/w with her Home with hospice Problem Qualifiers (1) PNA (pneumonia): Qualified Codes: J18.9 - Pneumonia, unspecified organism Mary Iraheta MD Jun 25, 2017 14:20
[2017-06-25] MEDS: traZODone HCL 50 MG TAB PO SCH (21:18)
[2017-06-26] VITALS (10 sets, daily range): BP systolic 101–167; BP diastolic 58–87; PULSE 80–108; RESP 18; TEMP 97.9–100.8; O2SAT 93–99
[2017-06-26] MEDS: ACETAMINOPHEN 325 MG TAB PEG PRN ×2 (01:07→09:43)
[2017-06-26] MEDS: VANCOMYCIN INJ 750 MG in SODIUM CHLOR 0.9% 250 ML INJ 250 ML IV SCH (02:45)
[2017-06-26] MEDS ORDERED: PHARMACY ORDERED LAB ONE (02:45)
[2017-06-26] MEDS: AZTREONAM INJ 2,000 MG in SODIUM CHLORIDE 0.9% INJ 100 ML IV SCH (05:27)
[2017-06-26] MEDS: METHADONE HCL 10 MG TAB PO SCH (05:27)
[2017-06-26] MEDS: ENOXAPARIN SODIUM 40 MG/0.4 ML SYRINGE SQ SCH (09:00)
--- NOTE | 2017-06-26 09:01 | HHI.PR ---
Subjective Remarks seen with family at bedside no acute events wants to go home home hospice established per family just requesting for 2 days Xanax Objective Vitals Vital Signs Date Time Temp Pulse Resp B/P (MAP) Pulse Ox O2 Delivery O2 Flow Rate FiO2 06/26/17 05:45 95 Trach Collar 5.00 40 06/26/17 05:16 98.5 80 18 101/58 (72) 93 06/26/17 02:32 107/63 (78) 06/26/17 02:00 82 06/26/17 01:00 108 06/26/17 00:55 100.8 103 106/69 (81) 95 06/26/17 00:05 97 06/25/17 23:00 104 06/25/17 22:00 104 06/25/17 21:25 99.2 107 18 148/75 (99) 99 06/25/17 21:10 97 Trach Collar 5.00 40 06/25/17 21:00 104 06/25/17 20:01 110 06/25/17 19:00 110 06/25/17 16:00 98.4 107 18 129/68 (88) 96 06/25/17 12:09 97.8 76 16 103/60 (74) 96 06/25/17 10:21 99 Trach Collar 5.00 50 06/25/17 09:40 98.7 102 18 140/67 (91) 100 I/O 06/25/17 06/25/17 06/25/17 06/26/17 06/26/17 06/26/17 07:00 15:00 23:00 07:00 15:00 23:00 Intake Total 257.5 ml 420 ml 700 ml 257.5 ml Output Total 1775 ml Balance 257.5 ml 420 ml -1075 ml 257.5 ml Intake Oral 360 ml IV Total 257.5 ml 100 ml 100 ml 257.5 ml Tube Feeding 240 ml 240 ml Other 80 ml Output Urine Total 1775 ml # Voids 2 Result Diagram: 06/25/17 0330 06/24/17924 Imaging Last Impressions Chest X-Ray 06/24/17920 Signed Impressions: Service Date/Time: Saturday, June 24, 2017 09:31 - CONCLUSION: Increasing peribronchial thickening. Oscar Goncalves MD FACR Objective Remarks awake and alert. trach- good sats no rales, no wheezes regular rhythm abdomen- soft +PEG in place, no signs of infection extremities no edema up and ambulating A/P Problem List: (1) PNA (pneumonia) ICD Code: J18.9 - Pneumonia, unspecified organism Assessment and Plan 66 years old female sepsis due to pneumonia with history of COPD- gram negative in sputum - T down- clinically looks well will start on empiric antibiotics- of note she had pseudomonas in her sputum culture a couple of months ago- will deescalate the antibiotic regimen pending the clinical course and cultures. keep on oxygen to keep O2 sat > 90%- neb treatment. -history of Laryngeal cancer- s/p tracheostomy and PEG placement- being followed up by Hospice. - per patient- she has humidified oxygen and suction machine at home -DVT prophylaxis with subq Lovenox. DC today on Po Levaquin - Home with hospice Problem Qualifiers (1) PNA (pneumonia): Qualified Codes: J18.9 - Pneumonia, unspecified organism Mary Iraheta MD Jun 26, 2017 09:01
[2017-06-26] MEDS ORDERED: LEVA750T9 PO (09:10)
[2017-06-26] MEDS: GABAPENTIN 300 MG CAP PO SCH (09:34)
[2017-06-26] MEDS: ALPRAZolam 1 MG TAB PO PRN (09:34)
[2017-06-26] MEDS ORDERED: LEVOFLOXACIN 750 MG TAB PO SCH (12:00)
[2017-06-26] MEDS ORDERED: VANCOMYCIN 1 GM/200 ML PREMIX IV SCH (12:00)
[2017-06-26] MEDS ORDERED: VANCOMYCIN 1,000 MG/NS 250 ML IV SCH ×2 (12:00)
[2017-06-26] MEDS ORDERED: SODIUM CHLORIDE 0.9% FLUSH 10 ML FLUSH IV FLUSH PRN (12:45)
[2017-06-27] MEDS ORDERED: PHARMACY ORDERED LAB ONE (23:45)
== END 2017-06-26 13:20 | disposition hospice, home (50) | DRG 871 ==
LOC: NEPC 09:05 → NEDA 11:40 → NEDH 19:13 → HCIN 06-25 01:20
PROVIDERS: ADMIT Internal Medicine; ATTEND Internal Medicine
DX: A41.9 Sepsis, unspecified organism (principal); J18.9 Pneumonia, unspecified organism; Z93.0 Tracheostomy status; J44.0 Chronic obstructive pulmonary disease with (acute) lower respiratory infection; Z99.81 Dependence on supplemental oxygen; J44.1 Chronic obstructive pulmonary disease with (acute) exacerbation; I10 Essential (primary) hypertension; Z85.21 Personal history of malignant neoplasm of larynx; Z93.1 Gastrostomy status; Z92.21 Personal history of antineoplastic chemotherapy
CPT/HCPCS: 71045; 80053; 80202; 81001; 82550; 83605; 84484; 85025; 87040; 87070; 87077; 87186; 87205; 93005; 94664; 96361; 96374; 96375; A7521; J1642; J1956; J2060; J2270; J3370; J7030; J7050